=== PATIENT | female | born 1960 | race Caucasian/White ===

== ENCOUNTER → 2020-05-03 13:12 | Outpatient (REF) | payer OTHER, SELFPAY ==
--- NOTE | 2020-05-03 13:30 | CA_ITS ---
Transthoracic Echocardiogram Patient (Last, First, Middle): Sally Barr A Gender: Female Date of : 1960 Age: 60 Procedure Date: 05/03/2020 Procedure Type: Transthoracic Echocardiogram Location: OP Height: 157.48 cm Weight: 80.74 kg BSA: 1.82 m2 Heart Rate: bpm BP: 128 / 82 mmHg Mail Weigher: Referring MD: Harjeet Julio MD Symptoms: I10 HTN, EDEMA Study Quality: Fair ECG Rhythm: Sinus Conclusions: - Normal left ventricular size and systolic function. - Spectral Doppler is indicative of an impaired relaxation filling pattern. E/E prime ratio is between 8 and 15 consistent with indeterminate filling pressures. - Normal right ventricular cavity size and systolic function. - No significant valvular or pericardial pathology. Findings Left Ventricle Normal left ventricular size and systolic function. There is mildly increased left ventricular wall thickness. The visually estimated ejection fraction is between 55-60%. There is no evidence of regional wall motion abnormalities. Abnormal diastolic function is noted. Spectral Doppler is indicative of an impaired relaxation filling pattern. E/E prime ratio is between 8 and 15 consistent with indeterminate filling pressures. Right Ventricle Normal right ventricular cavity size and systolic function. Atria Both atria are normal in size. There is no evidence of interatrial shunt by color Doppler. Aortic Valve Normal aortic valve structure and function. There is no aortic valve stenosis. There is no aortic valve regurgitation. Mitral Valve Normal mitral valve structure and function. There is no mitral valve regurgitation. There is no mitral valve stenosis. Pulmonic Valve The pulmonic valve is likely normal. Tricuspid Valve Normal tricuspid valve structure and function. There is trace tricuspid valve regurgitation. Normal right atrial pressure. There is no evidence of pulmonary hypertension. Great Vessels All visible segments of the aorta are normal in size. The visualized portions of the pulmonary artery and branches are normal. Venous The inferior vena cava is normal in size and collapses greater than 50% with inspiration. Pericardium/Pleural There is no evidence of pericardial effusion. Prior Study Comparison Changes noted compared to prior study dated: 04/14/2019. EF 55-60%, grade 1 diastolic dysfunction present. Measurements 2D Linear Measurements IVSd: 1.10 0.6-0.9/0.6-1.0 cm LVIDd: 4.13 3.9-5.3/4.2-5.9 cm LVIDd Index: 2.27 2.4-3.2/2.2-3.1 cm/m2 LVIDs: 2.85 2.0-3.6 cm LVPWd: 0.81 0.7-1.1 cm Ao Root: 2.40 2.1-3.5 cm LA Diam: 3.30 2.7-3.8/3.0-4.0 cm LAIDs Index: 1.81 1.5-2.3 cm/m2 LV Mass: 156.24 67-162/88-224 g LV Mass Index: 85.85 43-95/49-115 g/m2 LVOT Diam: 1.90 3.0+(-)1.3 cm Mitral Valve MV Pk E: 0.82 MV PK A: 0.90 MV Decel Time: 201.00 E/A: 0.90 E'Lateral: 7.06 E'Medial: 6.58 E/E' Med: 12.50 E/E' Lat: 11.60 PHT: 59.00 MVA PHT: 3.73 Decel [place]: 4.08 Aortic Valve AoV Pk Dagoberto: 1.26 AoV Pk Grad: 6.00 LVOT LVOT Pk Dagoberto: 1.16 LVOT Mn Dagoberto: 0.78 LVOT VTI: 0.23 LVOT Pk Grad: 5.00 LVOT Mn Grad: 3.00 LVOT Diam: 1.90 LVOT Area: 2.84 Diastolic Function MV Pk E: 0.82 MV Pk A: 0.90 E/A: 0.90 E'Medial: 6.58 E/E' Med: 12.50 E' Laterial: 7.06 E/E' Lat: 11.60 Tricuspid Valve TR Pk Dagoberto: 2.25 TR Pk Grad: 20.00 Great Vessels Aorta Ao Root-2D: 2.40 2.0-3.7 cm Ao Asc: 2.90 2.1-3.4 cm Updated in Other Vendor System with Status of Final Jonah Watson MD electronically signed on 05/04/2020 11:38:12 AM with status of Final
== END ==
LOC: HO.CARD 13:12
PROVIDERS: PCP Internal Medicine; Visit Provider Internal Medicine
DX: I10 Essential (primary) hypertension (principal); J45.909 Unspecified asthma, uncomplicated; R60.9 Edema, unspecified
CPT/HCPCS: 93306

== ENCOUNTER 2020-05-21 12:44 | Outpatient (REF) | payer OTHER, SELFPAY ==
[2020-05-21 14:23] LABS: MANUAL DIFF FLAG NO
[2020-05-21 14:30] LABS: Basophils Absolute Auto 0.1 X10*3/uL (0.0-0.2); Basophils Percent Auto 0.9 % (0-2); Eosinophils Absolute Auto 0.2 X10*3/uL (0.0-0.4); Eosinophils Percent Auto 1.7 % (0-4); Hematocrit 39.7 % (37-47); Hemoglobin 13.1 g/dl (12.0-16.0); Imm Gran Abs Auto 0.03 X10*3/uL (0.00-0.03); Imm Gran Pct Auto 0.3 % (0.0-0.4); Lymphocytes Percent Auto 44.6 % (20-40); Mean Corpuscular Hemoglobin 30.2 pg (27.0-33.0); Mean Corpuscular Volume 91.5 fL (80-98); Monocytes Absolute Auto 1.1 X10*3/uL (0.1-1.2); Monocytes Percent Auto 11.9 % (2-11); Neutrophils Absolute Auto 3.6 X10*3/uL (2.0-8.3); Neutrophils Percent Auto 40.6 % (45-73); Platelet Count 516 X10*3/uL (160-400); Red Blood Count 4.34 X10*6/uL (4.20-5.50); Red Cell Distribution Width 13.8 % (11.0-16.0); White Blood Count 8.9 X10*3/uL (4.8-10.8)
[2020-05-21 15:10] LABS: Alanine Aminotransferase 33 U/L (0-31); Albumin Level 4.2 g/dL (3.5-5.0); Alkaline Phosphatase 102 U/L (39-117); Anion Gap 11 (12-20); Aspartate Amino Transferase 24 U/L (5-31); Bilirubin Total < 0.2 mg/dL (0.0-1.0); Blood Urea Nitrogen 13 mg/dL (9-16); Calcium 8.4 mg/dL (8.4-10.2); Carbon Dioxide 29 mmol/L (22-29); Chloride 103 mmol/L (96-108); Estimated Glomerular Filt Rate > 60; Glucose Random 86 mg/dL (60-115); Lipase 15 U/L (8-78); Potassium 4.3 mmol/l (3.3-5.1); Sodium 139 mmol/L (135-145); Total Protein 7.3 g/dL (6.5-8.0)
== END 2020-05-21 12:45 | disposition home or self-care (01) ==
LOC: HO.10HDL 12:44
PROVIDERS: Visit Provider Internal Medicine
DX: R10.9 Unspecified abdominal pain (principal); E11.9 Type 2 diabetes mellitus without complications; J45.909 Unspecified asthma, uncomplicated; K21.9 Gastro-esophageal reflux disease without esophagitis; R60.9 Edema, unspecified; J44.9 Chronic obstructive pulmonary disease, unspecified
CPT/HCPCS: 36415; 80053; 82550; 83690; 85025

== ENCOUNTER → 2020-05-27 11:00 | Outpatient (BNVA) | payer OTHER, SELFPAY | PROVIDERS: PCP Internal Medicine; Visit Provider Internal Medicine Cardiovascular Disease | DX: R07.9 Chest pain, unspecified (principal); R06.00 Dyspnea, unspecified; I10 Essential (primary) hypertension; J45.909 Unspecified asthma, uncomplicated; Z79.899 Other long term (current) drug therapy | CPT/HCPCS: 93005 ==

== ENCOUNTER 2020-06-14 14:46 | Outpatient (REF) | payer OTHER, SELFPAY | END 2020-06-14 14:47 | disposition home or self-care (01) | LOC: HO.LNP 14:46 | PROVIDERS: Visit Provider Internal Medicine | DX: Z20.828 Contact with and (suspected) exposure to other viral communicable diseases (principal) | CPT/HCPCS: U0003 ==

== ENCOUNTER 2020-07-02 09:42 | Outpatient (REF) | payer OTHER, SELFPAY ==
[2020-07-02 10:37] LABS: Hemoglobin 13.5 g/dl (12.0-16.0); Mean Corpuscular HGB Conc 33.8 g/dl (31.0-35.0); Mean Corpuscular Hemoglobin 30.3 pg (27.0-33.0); Mean Corpuscular Volume 89.9 fL (80-98); Mean Platelet Volume 9.7 fL (9.4-12.3); Platelet Count 570 X10*3/uL (160-400); Red Blood Count 4.45 X10*6/uL (4.20-5.50); Red Cell Distribution Width 13.9 % (11.0-16.0); White Blood Count 9.6 X10*3/uL (4.8-10.8)
[2020-07-02 10:45] LABS: Prothrombin Time 12.1 SEC (10.8-13.0)
[2020-07-02 10:53] LABS: Anion Gap 13 (12-20); Blood Urea Nitrogen 9 mg/dL (9-16); Calcium 9.1 mg/dL (8.4-10.2); Carbon Dioxide 26 mmol/L (22-29); Chloride 104 mmol/L (96-108); Estimated Glomerular Filt Rate > 60; Glucose Random 161 mg/dL (60-115); Potassium 4.2 mmol/l (3.3-5.1); Sodium 139 mmol/L (135-145)
== END 2020-07-02 09:43 | disposition home or self-care (01) ==
LOC: HO.LAB 09:42
PROVIDERS: PCP Internal Medicine; Visit Provider Internal Medicine Cardiovascular Disease
DX: I20.0 Unstable angina (principal)
CPT/HCPCS: 36415; 80048; 85027; 85610

== ENCOUNTER → 2020-07-26 10:26 | Outpatient (BNVA) | payer OTHER, SELFPAY | PROVIDERS: PCP Internal Medicine; Visit Provider Internal Medicine Cardiovascular Disease | DX: Z76.89 Persons encountering health services in other specified circumstances (principal) ==

== ENCOUNTER → 2020-08-02 13:23 | Outpatient (REF) | payer OTHER, SELFPAY ==
--- NOTE | 2020-08-02 13:26 | ECG_ITS ---
Hook-up date: 2020-08-02 13:32:00 Duration: 26:02:00 Test Indications: UNSPEC. TACHYCARDIA Medications: [id number] QRS complexes 2 Ventricular ectopics which represent <1 % of total QRS comp. 2 Supraventricular ectopics which represent <1 % of total QRS comp. * Paced QRS complexs which represent % of total QRS comp. VENTRICULAR ECTOPY 2 Isolated 0 Bigeminal Cycles 0 Couplets 0 Runs 0 Beats in Runs * Beats LONGEST at * BPM at :: -- * Beats FASTEST at * BPM at :: -- SUPRAVENTRICULAR ECTOPY 0 Isolated 1 Couplets 0 Runs 0 Beats in Runs * Beats LONGEST at * BPM at :: -- * Beats FASTEST at * BPM at :: -- HEART RATES 65 MIN at 23:35:25 2020-08-02 82 AVG 129 MAX at 13:35:34 2020-08-02 LONGEST RR 0.9280 secs at 01:01:38 2020-08-03 S-T LEVELS Channel 1 - 128 mm at 13:32:00 2020-08-02 - 128 mm at 13:32:00 2020-08-02 Channel 2 - 128 mm at 13:32:00 2020-08-02 - 128 mm at 13:32:00 2020-08-02 Channel 3 - 128 mm at 03:25:11 -- - 128 mm at 03:25:11 Underlying rhythm is sinus; No significant ectopy, tachy or ian arrhythmias; Symptoms in patient diary including lightheadedness, chest pain, shortness of breath correlate with sinus rhythm. Referred By: Jonah Watson Overread By: LISS MCCLURE
== END ==
LOC: HO.CARD 13:23
PROVIDERS: Visit Provider Internal Medicine Cardiovascular Disease
DX: R00.0 Tachycardia, unspecified (principal)
CPT/HCPCS: 93225; 93226

== ENCOUNTER 2020-08-09 16:58 | Outpatient (REF) | payer OTHER, SELFPAY ==
[2020-08-09 17:44] LABS: MANUAL DIFF FLAG NO
[2020-08-09 17:53] LABS: Basophils Absolute Auto 0.1 X10*3/uL (0.0-0.2); Eosinophils Absolute Auto 0.3 X10*3/uL (0.0-0.4); Eosinophils Percent Auto 3.5 % (0-4); Hematocrit 39.5 % (37-47); Imm Gran Abs Auto 0.03 X10*3/uL (0.00-0.03); Imm Gran Pct Auto 0.3 % (0.0-0.4); Lymphocytes Absolute Auto 3.8 X10*3/uL (1.2-4.9); Lymphocytes Percent Auto 39.2 % (20-40); Mean Corpuscular HGB Conc 32.9 g/dl (31.0-35.0); Mean Corpuscular Hemoglobin 30.3 pg (27.0-33.0); Mean Corpuscular Volume 92.1 fL (80-98); Mean Platelet Volume 9.8 fL (9.4-12.3); Monocytes Percent Auto 9.8 % (2-11); Neutrophils Absolute Auto 4.5 X10*3/uL (2.0-8.3); Neutrophils Percent Auto 46.2 % (45-73); Platelet Count 559 X10*3/uL (160-400); Red Blood Count 4.29 X10*6/uL (4.20-5.50); White Blood Count 9.8 X10*3/uL (4.8-10.8)
[2020-08-09 17:55] LABS: Estimated Average Glucose 126 mg/dL; Glucose Urine UA NEG (NEG); Leukocyte Esterase Urine TRACE (NEG); Nitrite Urine NEG (NEG); Specific Gravity - Urine 1.015 (1.005-1.025); UACC Culture Trigger YES; Urine Blood TRACE (NEG); Urine Ketones NEG (NEG); Urine Protein NEG (NEG-TRACE)
[2020-08-09 18:11] LABS: Alanine Aminotransferase 20 U/L (0-31); Albumin Level 4.3 g/dL (3.5-5.0); Alkaline Phosphatase 112 U/L (39-117); Anion Gap 12 (12-20); Aspartate Amino Transferase 17 U/L (5-31); Bilirubin Total 0.3 mg/dL (0.0-1.0); Blood Urea Nitrogen 9 mg/dL (9-16); Calcium 8.5 mg/dL (8.4-10.2); Carbon Dioxide 29 mmol/L (22-29); Chloride 102 mmol/L (96-108); Estimated Glomerular Filt Rate > 60; Glucose Random 94 mg/dL (60-115); Potassium 4.3 mmol/l (3.3-5.1); Sodium 139 mmol/L (135-145); Total Protein 7.3 g/dL (6.5-8.0)
[2020-08-09 18:22] LABS: Appearance Urine CLEAR; Color Urine YELLOW
[2020-08-09 18:28] LABS: RBC Urine 0-2 /HPF (0); WBC Urine 0-2 /HPF (0-4)
== END 2020-08-09 16:59 | disposition home or self-care (01) ==
LOC: HO.LAB 16:58
PROVIDERS: PCP Internal Medicine; Visit Provider Internal Medicine
DX: I10 Essential (primary) hypertension (principal); R73.03 Prediabetes; R60.9 Edema, unspecified; R10.9 Unspecified abdominal pain
CPT/HCPCS: 36415; 80053; 81001; 81003; 83036; 85025; 87086

== ENCOUNTER 2020-08-10 12:44 | Outpatient (REF) | payer OTHER, SELFPAY ==
--- NOTE | 2020-08-10 | US_ITS ---
EXAMINATION: US RETROPERITONEAL COMPLETE (RENAL) CLINICAL INFORMATION: Right flank pain. Rule out obstruction.. COMPARISON: Previous CT of the abdomen and pelvis July 2019 and renal ultrasound February 2018 TECHNIQUE: Real-time imaging of the kidneys and bladder. FINDINGS: RIGHT KIDNEY: 10.6 x 4.4 x 5.5 cm (SAG x AP x TRV). The kidney is normal in size, contour, and echogenicity. Renal cortical thickness is normal. No calculi or focal parenchymal lesions. No hydronephrosis. The small stone in the upper pole of the right kidney seen by CT July 2019 is not appreciated. LEFT KIDNEY: 10.8 x 5.8 x 4.7 cm (SAG x AP x TRV). The kidney is normal in size, contour, and echogenicity. Renal cortical thickness is normal. No calculi or focal parenchymal lesions. No hydronephrosis. BLADDER: Well distended and normal. Bilateral ureteral jets are demonstrated. Prevoid bladder volume is 281 mL. Postvoid bladder volume is 16 mL. US/US retroperitoneal comp IMPRESSION: Normal renal and bladder ultrasound. No stone or hydronephrosis.
== END 2020-08-10 12:45 | disposition home or self-care (01) ==
LOC: HO.HMGCX 12:44
PROVIDERS: Visit Provider Internal Medicine
DX: R10.31 Right lower quadrant pain (principal); R00.0 Tachycardia, unspecified; R07.9 Chest pain, unspecified
CPT/HCPCS: 76770

== ENCOUNTER 2020-08-16 11:05 | Outpatient (REF) | payer OTHER, SELFPAY ==
--- NOTE | 2020-08-16 11:07 | CT_ITS ---
EXAMINATION: CT ABDOMEN AND PELVIS WITHOUT CONTRAST CLINICAL INFORMATION: Right flank pain COMPARISON: Previous CT of the abdomen and pelvis most recent July 2019 and renal and bladder ultrasound July 2020 TECHNIQUE: Multidetector volumetric imaging was performed from the superior aspect of the liver through the pubic symphysis. Sagittal and coronal reformatted images were obtained on the technologist's workstation. This CT examination was performed using dose optimization techniques as appropriate, variously including the following: *Automated exposure control *Adjustment of mA and/or kV according to patient size (this includes techniques or standardized protocols for targeted exams where dose is matched to indication/reason for exam; i.e. extremities or head) *Use of iterative reconstruction technique DLP: 458 mGy-cm FINDINGS: LUNG BASES: The visualized lung bases are unremarkable. LIVER, GALLBLADDER, AND BILIARY TREE: The liver is normal in size, shape, and attenuation. No focal hepatic lesion or biliary ductal dilatation is present. The gallbladder has been removed. PANCREAS: Unremarkable. SPLEEN: The spleen is absent. There may be a 1 cm splenule under the left hemidiaphragm axial image 25 series. This is unchanged. ADRENAL GLANDS: Unremarkable. KIDNEYS AND URETERS: The kidneys are normal in size, shape, and attenuation. No hydronephrosis, hydroureter, or calculi seen. No perinephric stranding. BLADDER: Bladder is empty. GASTROINTESTINAL TRACT: There is mild diverticulosis of the colon. No evidence of diverticulitis is seen. Stool is seen throughout the colon questionable for constipation. The small and large bowel are otherwise unremarkable. The appendix is not identified. No inflammatory changes in the right lower quadrant. The stomach is unremarkable. ABDOMINAL WALL: No significant hernia is appreciated. LYMPH NODES: Normal. VASCULAR: Unremarkable. PELVIC VISCERA: The uterus appears to have been removed. No pelvic mass is seen. OSSEOUS STRUCTURES: There is degenerative disc disease at L5-S1. CT/CT abdomen pelvis wo con IMPRESSION: No stone or hydronephrosis is seen. Mild diverticulosis of the colon. No evidence of diverticulitis. Stool throughout the colon questionable for constipation. .
== END 2020-08-16 11:06 | disposition home or self-care (01) ==
LOC: HO.CT 11:05
PROVIDERS: Visit Provider Internal Medicine
DX: R10.9 Unspecified abdominal pain (principal); Z87.442 Personal history of urinary calculi
CPT/HCPCS: 74176

== ENCOUNTER → 2020-10-25 09:43 | Outpatient (BNVA) | payer OTHER, SELFPAY | PROVIDERS: PCP Internal Medicine; Visit Provider Internal Medicine Cardiovascular Disease ==

== ENCOUNTER 2020-11-24 12:31 | Outpatient (REF) | payer OTHER, SELFPAY ==
[2020-11-24 13:59] LABS: MANUAL DIFF FLAG NO
[2020-11-24 14:02] LABS: Basophils Absolute Auto 0.1 X10*3/uL (0.0-0.2); Basophils Percent Auto 1.3 % (0-2); Eosinophils Absolute Auto 0.1 X10*3/uL (0.0-0.4); Eosinophils Percent Auto 1.6 % (0-4); Hematocrit 39.6 % (37-47); Hemoglobin 13.1 g/dl (12.0-16.0); Imm Gran Abs Auto 0.02 X10*3/uL (0.00-0.03); Imm Gran Pct Auto 0.2 % (0.0-0.4); Lymphocytes Absolute Auto 3.2 X10*3/uL (1.2-4.9); Mean Corpuscular HGB Conc 33.1 g/dl (31.0-35.0); Mean Corpuscular Hemoglobin 30.1 pg (27.0-33.0); Mean Platelet Volume 9.9 fL (9.4-12.3); Monocytes Absolute Auto 0.6 X10*3/uL (0.1-1.2); Monocytes Percent Auto 6.4 % (2-11); Neutrophils Absolute Auto 4.6 X10*3/uL (2.0-8.3); Neutrophils Percent Auto 53.5 % (45-73); Platelet Count 523 X10*3/uL (160-400); Red Blood Count 4.35 X10*6/uL (4.20-5.50); Red Cell Distribution Width 13.7 % (11.0-16.0); White Blood Count 8.6 X10*3/uL (4.8-10.8)
[2020-11-24 14:33] LABS: Alanine Aminotransferase 25 U/L (0-31); Albumin Level 4.2 g/dL (3.5-5.0); Alkaline Phosphatase 112 U/L (39-117); Anion Gap 14 (12-20); Aspartate Amino Transferase 22 U/L (5-31); Bilirubin Total 0.4 mg/dL (0.0-1.0); Blood Urea Nitrogen 10 mg/dL (9-16); C Reactive Protein 1.19 mg/dL (< or = 0.50); Calcium 9.4 mg/dL (8.4-10.2); Carbon Dioxide 29 mmol/L (22-29); Chloride 100 mmol/L (96-108); Estimated Glomerular Filt Rate 59; Glucose Random 180 mg/dL (60-115); Potassium 3.7 mmol/L (3.3-5.1); Sodium 139 mmol/L (135-145); Total Protein 7.2 g/dL (6.5-8.0)
== END 2020-11-24 12:32 | disposition home or self-care (01) ==
LOC: HO.HMGCLDS 12:31
PROVIDERS: PCP Internal Medicine; Visit Provider Internal Medicine
DX: I10 Essential (primary) hypertension (principal); R10.32 Left lower quadrant pain
CPT/HCPCS: 36415; 80053; 82550; 85025; 86140

== ENCOUNTER 2021-07-21 12:32 | Outpatient (REF) | payer OTHER, SELFPAY ==
[2021-07-21 14:00] LABS: MANUAL DIFF FLAG NO
[2021-07-21 14:12] LABS: Basophils Absolute Auto 0.1 X10*3/uL (0.0-0.2); Basophils Percent Auto 0.8 % (0-2); Eosinophils Absolute Auto 0.1 X10*3/uL (0.0-0.4); Eosinophils Percent Auto 1.1 % (0-4); Hematocrit 38.6 % (37.0-47.0); Hemoglobin 12.8 g/dl (12.0-16.0); Imm Gran Abs Auto 0.01 X10*3/uL (0.00-0.03); Imm Gran Pct Auto 0.1 % (0.0-0.4); Lymphocytes Absolute Auto 3.5 X10*3/uL (1.2-4.9); Lymphocytes Percent Auto 31.6 % (20-40); Mean Corpuscular HGB Conc 33.2 g/dl (31.0-35.0); Mean Corpuscular Hemoglobin 30.3 pg (27.0-33.0); Mean Corpuscular Volume 91.5 fL (80.0-98.0); Mean Platelet Volume 9.6 fL (9.4-12.3); Monocytes Percent Auto 9.2 % (2-11); Neutrophils Absolute Auto 6.4 x10*3/uL (2.0-8.3); Neutrophils Percent Auto 57.2 % (45-73); Platelet Count 536 X10*3/uL (160-400); Red Blood Count 4.22 X10*6/uL (4.20-5.50); Red Cell Distribution Width 14.6 % (11.0-16.0); White Blood Count 11.1 X10*3/uL (4.8-10.8)
[2021-07-21 14:29] LABS: Troponin-I High Sensitivity < 3.5 ng/L (<3.5-17.0)
[2021-07-21 14:42] LABS: Alanine Aminotransferase 21 U/L (0-31); Albumin Level 4.2 g/dL (3.5-5.0); Alkaline Phosphatase 108 U/L (39-117); Anion Gap 10 (12-20); Aspartate Amino Transferase 15 U/L (5-31); Bilirubin Total 0.3 mg/dL (0.0-1.0); Blood Urea Nitrogen 10 mg/dL (9-16); C Reactive Protein 1.48 mg/dL (< or = 0.50); Calcium 9.4 mg/dL (8.4-10.2); Carbon Dioxide 29 mmol/L (22-29); Chloride 106 mmol/L (96-108); Estimated Glomerular Filt Rate > 60; Glucose Random 97 mg/dL (60-115); Potassium 4.2 mmol/L (3.3-5.1); Sodium 141 mmol/L (135-145); Total Protein 7.2 g/dL (6.5-8.0)
== END 2021-07-21 12:33 | disposition home or self-care (01) ==
LOC: HO.10HDL 12:32
PROVIDERS: Visit Provider Internal Medicine
DX: R00.0 Tachycardia, unspecified (principal); R07.89 Other chest pain
CPT/HCPCS: 36415; 80053; 82550; 84484; 85025; 86140

== ENCOUNTER → 2021-07-26 10:11 | Outpatient (REF) | payer OTHER, SELFPAY ==
--- NOTE | 2021-07-26 10:30 | CA_ITS ---
Transthoracic Echocardiogram Patient (Last, First, Middle): Sally Barr A Gender: Female Date of : 1960 Age: 61 Procedure Date: 07/26/2021 Procedure Type: Transthoracic Echocardiogram Location: OP Height: 157.48 cm Weight: 83.92 kg BSA: 1.85 m2 Heart Rate: bpm BP: 137 / 84 mmHg [facility] Former: [facility] Referring MD: Harjeet Julio MD Symptoms: R00.0 TACHYCARDIA CHEST TIGHTNESS Study Quality: Fair ECG Rhythm: Sinus Conclusions: - The left ventricular systolic function is normal. The calculated ejection fraction is 57% by biplane method. - No obvious valvular pathology seen on this study. Findings Left Ventricle Normal left ventricular cavity size. There is normal left ventricular wall thickness. The left ventricular systolic function is normal. The calculated ejection fraction is 57% by biplane method. There is no evidence of regional wall motion abnormalities. Diastolic function is normal for age. Right Ventricle Normal right ventricular cavity size and systolic function. Atria Both atria are normal in size. Aortic Valve There is a normal trileaflet aortic valve. There is no aortic valve stenosis. There is no aortic valve regurgitation. Mitral Valve The mitral valve appears normal. There is no mitral valve regurgitation. There is no mitral valve stenosis. Pulmonic Valve The pulmonic valve was not well visualized. Tricuspid Valve There is trace tricuspid valve regurgitation. The pulmonary artery systolic pressure is normal. Great Vessels The aortic annulus, sinuses of valsalva, asc aorta, and aortic arch are normal in size. Venous The inferior vena cava is normal in size and collapses greater than 50% with inspiration. Pericardium/Pleural There is no evidence of pericardial effusion. Prior Study Comparison No significant change compared to prior study dated: 05/03/2020. Recommendations, Care & Conclusions No obvious valvular pathology seen on this study. Measurements 2D Linear Measurements IVSd: 1.07 0.6-0.9/0.6-1.0 cm LVIDd: 4.14 3.9-5.3/4.2-5.9 cm LVIDd Index: 2.24 2.4-3.2/2.2-3.1 cm/m2 LVIDs: 3.21 2.0-3.6 cm LVPWd: 0.88 0.7-1.1 cm Ao Root: 2.90 2.1-3.5 cm LA Diam: 3.40 2.7-3.8/3.0-4.0 cm LAIDs Index: 1.84 1.5-2.3 cm/m2 LV Mass: 160.99 67-162/88-224 g LV Mass Index: 87.02 43-95/49-115 g/m2 LVOT Diam: 1.90 3.0+(-)1.3 cm 2D Systolic Function EF 4C: 58.90 >55% EF 2C: 56.70 >55% EF BiP: 57.00 >55% Mitral Valve MV Pk E: 0.75 MV PK A: 1.09 MV Decel Time: 156.00 E/A: 0.70 E'Lateral: 10.80 E'Medial: 7.40 E/E' Med: 10.20 E/E' Lat: 7.00 PHT: 46.00 MVA PHT: 4.78 Decel [place]: 4.84 Aortic Valve AoV Pk Dagoberto: 1.52 AoV Mn Dagoberto: 1.05 AoV VTI: 0.29 AoV Pk Grad: 9.00 Aov Mn Grad: 5.00 [place] Cont.VTI: 2.44 LVOT LVOT Pk Dagoberto: 1.26 LVOT Mn Dagoberto: 0.94 LVOT VTI: 0.25 LVOT Pk Grad: 6.00 LVOT Mn Grad: 4.00 LVOT Diam: 1.90 LVOT Area: 2.84 Diastolic Function MV Pk E: 0.75 MV Pk A: 1.09 E/A: 0.70 E'Medial: 7.40 E/E' Med: 10.20 E' Laterial: 10.80 E/E' Lat: 7.00 Right Ventricle TAPSE (mm): 22.40 TVS' Dagoberto: 12.60 Tricuspid Valve TR Pk Dagoberto: 1.21 TR Pk Grad: 6.00 RA Press: 3.00 RVSP: 9.00 Great Vessels Aorta Ao Root-2D: 2.90 2.0-3.7 cm Ao Asc: 3.00 2.1-3.4 cm Ao Arch: 2.70 Updated in Other Vendor System with Status of Final Aubrey Cooper MD electronically signed on 07/28/2021 1:03:54 PM with status of Final
== END ==
LOC: HO.CARD 10:11
PROVIDERS: PCP Internal Medicine; Visit Provider Internal Medicine
DX: R00.0 Tachycardia, unspecified (principal); R07.89 Other chest pain
CPT/HCPCS: 93306

== ENCOUNTER 2021-08-11 14:57 | Outpatient (REF) | payer OTHER, SELFPAY ==
[2021-08-11 15:34] LABS: MANUAL DIFF FLAG NO
[2021-08-11 16:02] LABS: Basophils Absolute Auto 0.1 X10*3/uL (0.0-0.2); Eosinophils Absolute Auto 0.2 X10*3/uL (0.0-0.4); Eosinophils Percent Auto 1.5 % (0-4); Hematocrit 40.6 % (37.0-47.0); Hemoglobin 13.7 g/dl (12.0-16.0); Imm Gran Abs Auto 0.03 X10*3/uL (0.00-0.03); Imm Gran Pct Auto 0.3 % (0.0-0.4); Lymphocytes Absolute Auto 3.8 X10*3/uL (1.2-4.9); Lymphocytes Percent Auto 34.4 % (20-40); Mean Corpuscular HGB Conc 33.7 g/dl (31.0-35.0); Mean Corpuscular Hemoglobin 30.7 pg (27.0-33.0); Mean Platelet Volume 9.5 fL (9.4-12.3); Monocytes Absolute Auto 1.1 X10*3/uL (0.1-1.2); Monocytes Percent Auto 9.6 % (2-11); Neutrophils Absolute Auto 5.8 x10*3/uL (2.0-8.3); Neutrophils Percent Auto 53.2 % (45-73); Platelet Count 493 X10*3/uL (160-400); Red Blood Count 4.46 X10*6/uL (4.20-5.50); Red Cell Distribution Width 14.2 % (11.0-16.0)
== END 2021-08-11 14:58 | disposition home or self-care (01) ==
LOC: HO.LAB 14:57
PROVIDERS: PCP Internal Medicine; Visit Provider Internal Medicine Pulmonary Disease
DX: R60.9 Edema, unspecified (principal); J45.909 Unspecified asthma, uncomplicated; Z91.09 Other allergy status, other than to drugs and biological substances
CPT/HCPCS: 36415; 82785; 85025; 86003

== ENCOUNTER 2021-08-18 13:31 | Outpatient (REF) | payer OTHER, SELFPAY ==
--- NOTE | ~2021-08-18 | XR_ITS ---
EXAMINATION: XR CHEST CLINICAL INFORMATION: Shortness of breath with asthma. COMPARISON: 11/08/2017 TECHNIQUE: 2 views of the chest were obtained. FINDINGS: No convincing evidence for an acute process. Some chronic markings are noted. No obvious failure or infiltrate. There is no effusion. The cardiac silhouette is within normal limits. The hilar regions do not appear pathologically enlarged. There is no effusion. XR/XR chest 2V IMPRESSION: No acute finding.
== END 2021-08-18 13:32 | disposition home or self-care (01) ==
LOC: HO.XRAY 13:31
PROVIDERS: PCP Internal Medicine; Visit Provider Internal Medicine
DX: J45.909 Unspecified asthma, uncomplicated (principal); R06.02 Shortness of breath
CPT/HCPCS: 71046

== ENCOUNTER 2021-08-18 14:08 | Outpatient (REF) | payer OTHER, SELFPAY ==
[2021-08-18 15:01] LABS: Influenza A PCR NEGATIVE (Negative); Influenza B PCR NEGATIVE (Negative); Resp Syncy Virus RNA Qual PCR NEGATIVE (Negative); SARS COV2 PCR INHOUSE NEGATIVE (Negative)
== END 2021-08-18 14:09 | disposition home or self-care (01) ==
LOC: HO.LNP 14:08
PROVIDERS: Visit Provider Internal Medicine
DX: Z20.822 Contact with and (suspected) exposure to COVID-19 (principal); R05.9 Cough, unspecified
CPT/HCPCS: 0241U

== ENCOUNTER 2021-08-22 15:10 | Outpatient (REF) | payer OTHER, SELFPAY ==
--- NOTE | ~2021-08-22 | US_ITS ---
EXAMINATION: US VENOUS ULTRASOUND WITH DOPPLER LOWER EXTREMITY, BILATERAL CLINICAL INFORMATION: Edema. COMPARISON: None TECHNIQUE: Ultrasound of the deep veins is performed from the hip to the calf with compression sonography and color and pulse Doppler assessment. Spectral analysis with color-flow imaging is performed. FINDINGS: RIGHT: There is normal venous compression and respiratory variation and augmented flow. The visualized common femoral vein, superficial femoral vein, profunda femoral vein, popliteal vein, and the trifurcation region shows no evidence of deep venous thrombosis. There is no significant popliteal fossa cyst. LEFT: There is normal venous compression and respiratory variation and augmented flow. The visualized common femoral vein, superficial femoral vein, profunda femoral vein, popliteal vein, and the trifurcation region shows no evidence of deep venous thrombosis. There is no significant popliteal fossa cyst. If the patient's symptoms persist, followup ultrasound in 5 days 7 days might be of value to exclude proximal propagation from a non-visualized calf vein. US/US venous duplex LE BI IMPRESSION: No DVT demonstrated in the bilateral lower extremity.
== END 2021-08-22 15:11 | disposition home or self-care (01) ==
LOC: HO.US 15:10
PROVIDERS: PCP Internal Medicine; Visit Provider Internal Medicine Pulmonary Disease
DX: R60.9 Edema, unspecified (principal)
CPT/HCPCS: 93970

== ENCOUNTER 2021-08-30 14:50 | Outpatient (REF) | payer OTHER, SELFPAY ==
--- NOTE | 2021-08-30 17:33 | PFT_ITS ---
Forced vital capacity 88%. FEV1 94%, FEV1/FVC ratio is 82, RHG28-68 99% and MVV is 107%. All these flow volumes are normal. After bronchodilator therapy, there is significant improvement in [id number]. Total lung capacity 93%. Residual volume 94%, normal. Diffusion capacity 84%, normal. CONCLUSION: Normal pulmonary function test and no evidence of obstructive or restrictive pulmonary disorder. Significant response to bronchodilator with improvement of [id number] indicates that the patient may have a mild bronchospastic component. For this, clinical correlation is recommended. June Simon MD MSB/MODL / [id number]
== END 2021-08-30 14:51 | disposition home or self-care (01) ==
LOC: HO.RESP 14:50
PROVIDERS: PCP Internal Medicine; Visit Provider Internal Medicine Pulmonary Disease
DX: R06.00 Dyspnea, unspecified (principal); J45.909 Unspecified asthma, uncomplicated
CPT/HCPCS: 94060; 94727; 94729

== ENCOUNTER → 2021-09-01 14:58 | Outpatient (BNVA) | payer OTHER, SELFPAY | PROVIDERS: PCP Internal Medicine; Visit Provider Internal Medicine Pulmonary Disease | DX: Z91.09 Other allergy status, other than to drugs and biological substances (principal); J45.909 Unspecified asthma, uncomplicated; R60.9 Edema, unspecified ==

== ENCOUNTER 2021-09-13 08:11 | Outpatient (REF) | payer OTHER, SELFPAY ==
--- NOTE | ~2021-09-13 | CT_ITS ---
EXAMINATION: CT CHEST WITHOUT CONTRAST CLINICAL INFORMATION: Interstitial pulmonary disease COMPARISON: Previous chest x-ray most recent August [address] of the abdomen and pelvis most recent August 2020 TECHNIQUE: Multidetector volumetric CT imaging of the chest was done. Axial MIP volume rendering provided. Sagittal and coronal reformatted images were obtained. This CT examination was performed using dose optimization techniques as appropriate, variously including the following: *Automated exposure control *Adjustment of mA and/or kV according to patient size (this includes techniques or standardized protocols for targeted exams where dose is matched to indication/reason for exam; i.e. 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 No evidence of interstitial lung disease, emphysema or bronchiectasis is seen. MEDIASTINUM: The mediastinum is normal. PLEURA: There is no pleural effusion. No pleural mass or thickening. AXILLA: There are small bilateral axillary lymph nodes. No enlarged axillary lymph nodes or chest wall mass is seen. UPPER ABDOMEN: The gallbladder has been removed. The spleen is not seen. There may be a 1 x 1.5 cm splenule under the left hemidiaphragm axial image 56 series 7. This is similar to previous abdominal and pelvic CT scans. OSSEOUS STRUCTURES: There are mild degenerative changes of the spine. There is mild curvature of the midthoracic spine to the right. CT/CT chest wo con IMPRESSION: No evidence of interstitial lung disease. Fleischner guidelines were followed.
== END 2021-09-13 08:12 | disposition home or self-care (01) ==
LOC: HO.CT 08:11
PROVIDERS: PCP Internal Medicine; Visit Provider Internal Medicine Pulmonary Disease
DX: J84.9 Interstitial pulmonary disease, unspecified (principal); Z91.09 Other allergy status, other than to drugs and biological substances
CPT/HCPCS: 71250

== ENCOUNTER 2021-10-03 09:54 | Outpatient (REF) | payer OTHER, SELFPAY | END 2021-10-03 09:55 | disposition home or self-care (01) | LOC: HO.MDS 09:54 | PROVIDERS: Visit Provider Internal Medicine Pulmonary Disease | DX: J45.50 Severe persistent asthma, uncomplicated (principal) | CPT/HCPCS: 96372; J2357 ==

== ENCOUNTER 2021-11-01 09:51 | Outpatient (REF) | payer OTHER, SELFPAY | END 2021-11-01 09:52 | disposition home or self-care (01) | LOC: HO.MDS 09:51 | PROVIDERS: Visit Provider Internal Medicine Pulmonary Disease | DX: J45.50 Severe persistent asthma, uncomplicated (principal) | CPT/HCPCS: 96372; J2357 ==

== ENCOUNTER 2021-11-28 08:17 | Outpatient (REF) | payer OTHER, SELFPAY ==
[2021-11-28 10:20] LABS: MANUAL DIFF FLAG NO
[2021-11-28 10:24] LABS: Basophils Absolute Auto 0.1 X10*3/uL (0.0-0.2); Basophils Percent Auto 1.1 % (0-2); Eosinophils Absolute Auto 0.3 X10*3/uL (0.0-0.4); Eosinophils Percent Auto 2.5 % (0-4); Hematocrit 39.3 % (37.0-47.0); Hemoglobin 13.1 g/dl (12.0-16.0); Imm Gran Abs Auto 0.04 X10*3/uL (0.00-0.03); Imm Gran Pct Auto 0.4 % (0.0-0.4); Lymphocytes Absolute Auto 3.3 X10*3/uL (1.2-4.9); Lymphocytes Percent Auto 30.9 % (20-40); Mean Corpuscular HGB Conc 33.3 g/dl (31.0-35.0); Mean Corpuscular Hemoglobin 30.3 pg (27.0-33.0); Mean Platelet Volume 10.1 fL (9.4-12.3); Monocytes Absolute Auto 0.9 X10*3/uL (0.1-1.2); Monocytes Percent Auto 8.3 % (2-11); Neutrophils Percent Auto 56.8 % (45-73); Platelet Count 551 X10*3/uL (160-400); Red Blood Count 4.32 X10*6/uL (4.20-5.50); White Blood Count 10.5 X10*3/uL (4.8-10.8)
[2021-11-28 10:31] LABS: D Dimer High Sensitivity 163 NG/ML
[2021-11-28 10:42] LABS: Alanine Aminotransferase 26 U/L (0-31); Alkaline Phosphatase 112 U/L (39-117); Anion Gap 13 (12-20); Aspartate Amino Transferase 16 U/L (5-31); Bilirubin Total 0.5 mg/dL (0.0-1.0); Blood Urea Nitrogen 9 mg/dL (9-16); C Reactive Protein 1.18 mg/dL (< or = 0.50); Calcium 9.2 mg/dL (8.4-10.2); Carbon Dioxide 26 mmol/L (22-29); Chloride 103 mmol/L (96-108); Estimated Glomerular Filt Rate > 60; Glucose Random 112 mg/dL (60-115); Potassium 4.1 mmol/L (3.3-5.1); Sodium 138 mmol/L (135-145); Total Protein 7.1 g/dL (6.5-8.0)
[2021-11-28 11:05] LABS: Free T4 (Free Thyroxine) 0.88 ng/dL (0.71-1.85); Thyroid Stimulating Hormone 1.48 uIU/mL (0.32-4.0)
== END 2021-11-28 08:18 | disposition home or self-care (01) ==
LOC: HO.10HDL 08:17
PROVIDERS: Visit Provider Internal Medicine
DX: R07.9 Chest pain, unspecified (principal); R05.9 Cough, unspecified; J45.909 Unspecified asthma, uncomplicated; R60.0 Localized edema
CPT/HCPCS: 36415; 80053; 82550; 84439; 84443; 85025; 85379; 86140

== ENCOUNTER 2021-11-28 08:29 | Outpatient (REF) | payer OTHER, SELFPAY | END 2021-11-28 08:30 | disposition home or self-care (01) | LOC: HO.MDS 08:29 | PROVIDERS: Visit Provider Internal Medicine Pulmonary Disease | DX: J45.50 Severe persistent asthma, uncomplicated (principal) | CPT/HCPCS: 96372; J2357 ==

== ENCOUNTER 2021-12-26 08:28 | Outpatient (REF) | payer OTHER, SELFPAY | END 2021-12-26 08:29 | disposition home or self-care (01) | LOC: HO.MDS 08:28 | PROVIDERS: Visit Provider Internal Medicine Pulmonary Disease | DX: J45.50 Severe persistent asthma, uncomplicated (principal) | CPT/HCPCS: 96372; J2357 ==

== ENCOUNTER 2022-01-11 07:59 | Outpatient (REF) | payer OTHER, SELFPAY ==
--- NOTE | ~2022-01-11 | MM_ITS ---
EXAMINATION: MM SCREENING DIGITAL BREAST TOMOSYNTHESIS, BILATERAL CLINICAL INFORMATION: Screening. Asymptomatic. The lifetime risk of breast cancer based on the Tyrer-Cuzick Model is 9%. COMPARISON: Mammography: 08/29/2019, 06/10/2018, 03/15/2016, 03/06/2014 TECHNIQUE: Digital breast tomosynthesis is performed in both the craniocaudal and mediolateral oblique views along with computer-aided detection (CAD). Synthesized 2D images are generated from the tomosynthesis. FINDINGS: There are scattered areas of fibroglandular density (ACR BI-RADS breast composition Category b). There are no significant masses, abnormal calcifications, or other abnormalities. Parenchymal pattern is similar to prior studies. There there is scattered chronic small smooth nodularity again seen on the right, likely intramammary nodes. No developing density. The axillary nodes is similar to prior studies. Skin contours are smooth. MM/MM tomosynthesis screening BI IMPRESSION: No significant changes from prior exams. ASSESSMENT: BI-RADS 2: Benign RECOMMENDATION: Routine annual mammography screening. This patient's information was entered into a reminder system with a target due date for their next mammogram.
--- NOTE | ~2022-01-11 | MM_ITS ---
EXAMINATION: BONE DENSITOMETRY CLINICAL INDICATION: Menopausal. COMPARISON: Previous BD dated 03/14/2013 and baseline BD dated 06/08/2010. TECHNIQUE: Using a [employer] DXA System (software version: 13.1) manufactured by [employer], dual-energy x-ray absorptiometry was performed of the lumbar spine and left hip. The images are of good technical quality. Summary results are attached. FINDINGS: AP SPINE L1-L3 (excluding L4): The data of L1-L4 has been changed to exclude the L4 vertebral body, because generative change at this level may cause overestimation of lumbar spine density. Current: BMD 0.931 g/cm2, Z-score -1.0, T-score -2.0, osteopenia, 13.1% decrease from previous, 14.7% decrease from baseline (<5% change is not significant). Prior: BMD 1.071 g/cm2. Baseline: BMD 1.092 g/cm2. LEFT FEMUR, NECK: Current: BMD 0.856 g/cm2, Z-score -0.2, T-score -1.3, osteopenia. Prior: BMD 0.906 g/cm2. Baseline: BMD 0.919 g/cm2. LEFT FEMUR, TOTAL: Current: BMD 0.974 g/cm2, Z-score 0.5, T-score -0.3, normal, 2.3% increase from previous, 1.5% decrease from baseline (<5% change is not significant). Prior: BMD 0.952 g/cm2. Baseline: BMD 0.989 g/cm2. IDENTIFIED RISK FACTORS: Early menopause, secondary osteoporosis, hysterectomy, bilateral oophorectomy. HISTORY OF FRACTURE: None listed. MEDICATIONS: Vitamin D. MM/XR DEXA axial skeleton IMPRESSION: 1. DIAGNOSIS: Osteopenia based on the lowest T-score value of -2.0 in the lumbar spine applying World Health Organization criteria. 2. 10-YEAR FRACTURE RISK PREDICTION, FRAX: Major osteoporotic fracture (clinical spine, forearm, hip or shoulder) 7.5%. Hip fracture 0.6%. 3. Treatment Recommendations: NOF guidelines recommend consideration for treatment in postmenopausal women and men age 50 and older presenting with the following: -A hip or vertebral (clinical or morphometric) fracture. -T-score less than or equal to -2.5 at the femoral neck or spine after appropriate evaluation to exclude secondary causes. -Low bone mass at the hip or spine and a 10-year fracture probability by FRAX of greater than or equal to 3% for hip fracture or greater than or equal to 20% for major osteoporotic fracture based on the [place] adapted WHO algorithm. 4. Other Recommendations: All treatment decisions require clinical judgment and consideration of individual patient factors, including patient preferences, comorbidities, previous drug use, risk factors not captured in the FRAX model (e.g. frailty, falls, vitamin D deficiency, increased bone turnover, interval significant decline in bone density) and possible under or overestimation of fracture risk by FRAX. Additional medical evaluation for secondary cause of low bone mineral density may be appropriate. FUTURE SCAN RECOMMENDATION: People with diagnosed cases of osteoporosis or at high risk for fracture should have regular bone mineral density tests. For patients eligible for Medicare, routine testing is allowed once every 2 years. The testing frequency can be increased to one year for patients who have rapidly progressing disease, those who are receiving or discontinuing medical therapy to restore bone mass, or have additional risk factors.
== END 2022-01-11 08:00 | disposition home or self-care (01) ==
LOC: HO.MAMMO 07:59
PROVIDERS: Visit Provider Internal Medicine
DX: Z12.31 Encounter for screening mammogram for malignant neoplasm of breast (principal); Z13.820 Encounter for screening for osteoporosis; Z78.0 Asymptomatic menopausal state
CPT/HCPCS: 77063; 77067; 77080

== ENCOUNTER 2022-01-23 08:22 | Outpatient (REF) | payer OTHER, SELFPAY | END 2022-01-23 08:23 | disposition home or self-care (01) | LOC: HO.MDS 08:22 | PROVIDERS: PCP Internal Medicine; Visit Provider Internal Medicine Pulmonary Disease | DX: J45.50 Severe persistent asthma, uncomplicated (principal) | CPT/HCPCS: 96372; J2357 ==

== ENCOUNTER 2022-02-27 08:28 | Outpatient (REF) | payer OTHER, SELFPAY | END 2022-02-27 08:29 | disposition home or self-care (01) | LOC: HO.MDS 08:28 | PROVIDERS: Visit Provider Internal Medicine Pulmonary Disease | DX: J45.50 Severe persistent asthma, uncomplicated (principal) | CPT/HCPCS: 96372; J2357 ==

== ENCOUNTER 2022-03-13 09:57 | Outpatient (REF) | payer OTHER, SELFPAY ==
[2022-03-13 12:00] LABS: Alanine Aminotransferase 21 U/L (0-31); Alkaline Phosphatase 111 U/L (39-117); Anion Gap 15 (12-20); Aspartate Amino Transferase 13 U/L (5-31); Bilirubin Total 0.5 mg/dL (0.0-1.0); Blood Urea Nitrogen 13 mg/dL (9-16); Calcium 8.8 mg/dL (8.4-10.2); Carbon Dioxide 29 mmol/L (22-29); Chloride 101 mmol/L (96-108); Estimated Glomerular Filt Rate > 60; Glucose Random 102 mg/dL (60-115); Potassium 3.9 mmol/L (3.3-5.1); Sodium 141 mmol/L (135-145)
[2022-03-13 12:18] LABS: Estimated Average Glucose 128 mg/dL; Hemoglobin A1c % 6.1 %
== END 2022-03-13 09:58 | disposition home or self-care (01) ==
LOC: HO.HMGCLDS 09:57
PROVIDERS: PCP Internal Medicine; Visit Provider Internal Medicine
DX: I10 Essential (primary) hypertension (principal); J45.909 Unspecified asthma, uncomplicated
CPT/HCPCS: 36415; 80053; 83036

== ENCOUNTER 2022-03-15 12:37 | Outpatient (REF) | payer OTHER, SELFPAY ==
[2022-03-15 13:48] LABS: D Dimer High Sensitivity 239 NG/ML
[2022-03-15 14:09] LABS: B Type Natriuretic Peptide 12 pg/mL (<100)
== END 2022-03-15 12:38 | disposition home or self-care (01) ==
LOC: HO.LAB 12:37
PROVIDERS: PCP Internal Medicine; Visit Provider Internal Medicine Cardiovascular Disease
DX: R06.00 Dyspnea, unspecified (principal)
CPT/HCPCS: 36415; 83880; 85379

== ENCOUNTER 2022-03-16 14:15 | Outpatient (REF) | payer OTHER, SELFPAY ==
--- NOTE | ~2022-03-16 | CT_ITS ---
EXAMINATION: CT ANGIOGRAM OF THE CHEST WITH AND WITHOUT CONTRAST (CT PULMONARY ANGIOGRAM FOR PE) CLINICAL INFORMATION: Dyspnea. COMPARISON: CT chest 09/16/2021 TECHNIQUE: Prior to contrast administration, noncontrast localization images were obtained. Subsequently, multidetector volumetric imaging was performed from the thoracic inlet to below the diaphragms following the administration of 65 mL Omnipaque 350 intravenous contrast. No contrast reaction reported Sagittal, coronal, and MIP oblique sagittal reformatted images were obtained on the CT workstation, uploaded to PACS, and reviewed. This CT examination was performed using dose optimization techniques as appropriate, variously including the following: *Automated exposure control *Adjustment of mA and/or kV according to patient size (this includes techniques or standardized protocols for targeted exams where dose is matched to indication/reason for exam; i.e. extremities or head) *Use of iterative reconstruction technique Total exam dose-length product 64 mGy-cm FINDINGS: QUALITY OF STUDY/CONTRAST BOLUS: Satisfactory. PULMONARY ARTERIES: There are small pulmonary emboli within the subsegmental pulmonary artery branches of the right lower lobe. Sagittal image 122/173 series 8. THORACIC AORTA: No aneurysm or dissection. LUNG: No focal consolidation, nodules or masses. PLEURA: No pleural effusion or pneumothorax. MEDIASTINUM: Normal heart size. No pericardial effusion. No hilar or mediastinal lymphadenopathy. No evidence of septal bowing or right heart strain. CHEST WALL/AXILLA: No axillary or internal mammary lymphadenopathy. OSSEOUS STRUCTURES: No acute or suspicious osseous abnormality. UPPER ABDOMEN: Status post cholecystectomy. No abnormality visualized portions of liver, kidneys, adrenal glands and pancreas. Spleen is absent. There is a small splenule left upper quadrant. No reflux of contrast into the hepatic veins to suggest elevated right heart pressures. CT/CT angio chest PE protocol IMPRESSION: Small volume of pulmonary emboli in the right lower lobe. VTE: positive. This critical result was discussed with Jonah Rust on 03/16/2022, 4:12 PM and it was ascertained that the content and urgency of the report was understood at the time of direct communication.
[2022-03-16] MEDS: iohexoL 350 MG/ML 100 ML INFUS..BTL IV (15:37)
== END 2022-03-16 14:16 | disposition home or self-care (01) ==
LOC: HO.CT 14:15
PROVIDERS: PCP Internal Medicine; Visit Provider Internal Medicine Cardiovascular Disease
DX: R06.00 Dyspnea, unspecified (principal); R07.9 Chest pain, unspecified
CPT/HCPCS: 71275; Q9967

== ENCOUNTER → 2022-03-29 09:21 | Outpatient (REF) | payer OTHER, SELFPAY ==
--- NOTE | 2022-03-29 09:24 | CA_ITS ---
Transthoracic Echocardiogram Patient (Last, First, Middle): Sally Barr A Gender: Female Date of : 1960 Age: 62 Procedure Date: 03/29/2022 Procedure Type: Transthoracic Echocardiogram Location: OP Height: 154.94 cm Weight: 84.82 kg BSA: 1.84 m2 Heart Rate: 92 bpm BP: 130 / 85 mmHg Communications Electrician Supervisor: MILANA Nicholson MD: Jonah Watson MD Reptile Farmer: Jonah Watson MD Symptoms: I26.99 - Other pulmonary embolism without acute cor pulmonale Study Quality: Adequate ECG Rhythm: Sinus Conclusions: - Normal left ventricular size, thickness, systolic function, and wall motion. The visually estimated ejection fraction is between 55-60%. Diastolic function is normal for age. - Normal right ventricular cavity size and systolic function. Findings Left Ventricle Normal left ventricular size, thickness, systolic function, and wall motion. The visually estimated ejection fraction is between 55-60%. Diastolic function is normal for age. Right Ventricle Normal right ventricular cavity size and systolic function. Atria The left atrium is normal in size. Aortic Valve Normal aortic valve structure and function. There is no aortic valve stenosis. There is no aortic valve regurgitation. Mitral Valve Normal mitral valve structure and function. There is no mitral valve regurgitation. There is no mitral valve stenosis. Pulmonic Valve The pulmonic valve is likely normal. Tricuspid Valve Normal tricuspid valve structure and function. There is trace tricuspid valve regurgitation. Tricuspid regurgitation envelope is inadequate for calculation of right ventricular systolic pressure. Normal right atrial pressure. Great Vessels All visible segments of the aorta are normal in size. The visualized portions of the pulmonary artery and branches are normal. Venous The inferior vena cava is normal in size and collapses greater than 50% with inspiration. Pericardium/Pleural Prominent epicardial adipose tissue noted. There is no evidence of pericardial effusion. Prior Study Comparison No significant change compared to prior study dated: 07/26/2021. Measurements 2D Linear Measurements IVSd: 0.88 0.6-0.9/0.6-1.0 cm LVIDd: 4.50 3.9-5.3/4.2-5.9 cm LVIDd Index: 2.45 2.4-3.2/2.2-3.1 cm/m2 LVIDs: 2.96 2.0-3.6 cm LVPWd: 0.71 0.7-1.1 cm LA Diam: 3.30 2.7-3.8/3.0-4.0 cm LAIDs Index: 1.79 1.5-2.3 cm/m2 LV Mass: 140.48 67-162/88-224 g LV Mass Index: 76.35 43-95/49-115 g/m2 LVOT Diam: 1.80 3.0+(-)1.3 cm 2D Systolic Function EF 4C: 60.10 >55% EF 2C: 57.50 >55% EF BiP: 57.80 >55% Mitral Valve MV Pk E: 0.93 MV PK A: 1.04 MV Decel Time: 224.00 E/A: 0.90 E'Lateral: 10.00 E'Medial: 7.83 E/E' Med: 11.80 E/E' Lat: 9.30 PHT: 66.00 MVA PHT: 3.33 Decel [place]: 4.12 Aortic Valve AoV Pk Dagoberto: 1.36 AoV Mn Dagoberto: 1.01 AoV VTI: 0.28 AoV Pk Grad: 7.00 Aov Mn Grad: 5.00 [place] Cont.VTI: 2.30 LVOT LVOT Pk Dagoberto: 1.32 LVOT Mn Dagoberto: 0.87 LVOT VTI: 0.25 LVOT Pk Grad: 7.00 LVOT Mn Grad: 4.00 LVOT Diam: 1.80 LVOT Area: 2.54 Diastolic Function MV Pk E: 0.93 MV Pk A: 1.04 E/A: 0.90 E'Medial: 7.83 E/E' Med: 11.80 E' Laterial: 10.00 E/E' Lat: 9.30 Right Ventricle TAPSE (mm): 24.40 TVS' Dagoberto: 11.50 Tricuspid Valve RA Press: 3.00 Great Vessels Aorta Sinus of Valsalva: 2.70 2.0-3.5 cm Ao Asc: 2.60 2.1-3.4 cm Pulmonary Valve PV Pk Dagoberto: 1.17 Peak PV Grad: 5.00 Updated in Other Vendor System with Status of Final Jonah Watson MD electronically signed on 03/29/2022 3:17:02 PM with status of Final
== END ==
LOC: HO.CARD 09:21
PROVIDERS: Visit Provider Internal Medicine Cardiovascular Disease
DX: I26.99 Other pulmonary embolism without acute cor pulmonale (principal)
CPT/HCPCS: 93306

== ENCOUNTER 2022-05-15 14:39 | Emergency (ER) | payer OTHER, SELFPAY ==
[2022-05-15 16:10] VITALS: BP 151/82; PULSE 84; RESP 18; TEMP 36.8; O2SAT 97; BMI 34.9
== END 2022-05-15 17:24 | disposition left against medical advice (07) ==
PROVIDERS: Emergency Provider Emergency Medicine; PCP Internal Medicine
DX: R51.9 Headache, unspecified (principal)
CPT/HCPCS: 99281

== ENCOUNTER 2022-05-15 16:22 | Outpatient (REF) | payer OTHER, SELFPAY ==
--- NOTE | ~2022-05-15 | XR_ITS ---
EXAMINATION: XR SINUSES CLINICAL INFORMATION: Headache COMPARISON: None TECHNIQUE: 3 views of the sinuses were obtained. FINDINGS: Paranasal sinuses appear clear without air-fluid levels. No fractures are identified. No radiodense foreign bodies. XR/XR sinus min 3V IMPRESSION: Unremarkable examination.
[2022-05-15 16:37] LABS: MANUAL DIFF FLAG NO
[2022-05-15 17:33] LABS: Basophils Absolute Auto 0.1 X10*3/uL (0.0-0.2); Basophils Percent Auto 0.8 % (0-2); Eosinophils Absolute Auto 0.1 X10*3/uL (0.0-0.4); Hematocrit 43.2 % (37.0-47.0); Hemoglobin 14.3 g/dl (12.0-16.0); Imm Gran Abs Auto 0.05 X10*3/uL (0.00-0.03); Imm Gran Pct Auto 0.4 % (0.0-0.4); Lymphocytes Absolute Auto 2.9 X10*3/uL (1.2-4.9); Lymphocytes Percent Auto 23.2 % (20-40); Mean Corpuscular HGB Conc 33.1 g/dl (31.0-35.0); Mean Corpuscular Hemoglobin 30.2 pg (27.0-33.0); Mean Corpuscular Volume 91.3 fL (80.0-98.0); Mean Platelet Volume 9.5 fL (9.4-12.3); Monocytes Absolute Auto 1.1 X10*3/uL (0.1-1.2); Monocytes Percent Auto 8.5 % (2-11); Neutrophils Absolute Auto 8.2 x10*3/uL (2.0-8.3); Neutrophils Percent Auto 66.1 % (45-73); Platelet Count 635 X10*3/uL (160-400); Red Blood Count 4.73 X10*6/uL (4.20-5.50); Red Cell Distribution Width 14.5 % (11.0-16.0); White Blood Count 12.4 X10*3/uL (4.8-10.8)
[2022-05-15 17:40] LABS: Alanine Aminotransferase 32 U/L (0-31); Albumin Level 4.6 g/dL (3.5-5.0); Alkaline Phosphatase 125 U/L (39-117); Anion Gap 17 (12-20); Aspartate Amino Transferase 27 U/L (5-31); Bilirubin Total 0.3 mg/dL (0.0-1.0); Blood Urea Nitrogen 11 mg/dL (9-16); Calcium 9.3 mg/dL (8.4-10.2); Carbon Dioxide 28 mmol/L (22-29); Chloride 101 mmol/L (96-108); Estimated Glomerular Filt Rate > 60; Glucose Random 100 mg/dL (60-115); Potassium 4.2 mmol/L (3.3-5.1); Sodium 142 mmol/L (135-145)
[2022-05-15 18:17] LABS: Erythrocyte Sedimentation Rate 26 MM/HR (0-20)
== END 2022-05-15 16:23 | disposition home or self-care (01) ==
LOC: HO.LAB 16:22
PROVIDERS: PCP Internal Medicine; Visit Provider Internal Medicine
DX: R51.9 Headache, unspecified (principal); J45.909 Unspecified asthma, uncomplicated
CPT/HCPCS: 36415; 70220; 80053; 85025; 85652

== ENCOUNTER 2022-05-17 13:56 | Outpatient (REF) | payer OTHER, SELFPAY ==
[2022-05-17 14:49] LABS: Influenza A PCR NEGATIVE (Negative); Influenza B PCR NEGATIVE (Negative); Resp Syncy Virus RNA Qual PCR NEGATIVE (Negative); SARS COV2 PCR INHOUSE NEGATIVE (Negative)
== END 2022-05-17 13:57 | disposition home or self-care (01) ==
LOC: HO.LNP 13:56
PROVIDERS: Visit Provider Internal Medicine
DX: Z20.822 Contact with and (suspected) exposure to COVID-19 (principal); J06.9 Acute upper respiratory infection, unspecified; R05.9 Cough, unspecified; R51.9 Headache, unspecified
CPT/HCPCS: 0241U

== ENCOUNTER 2022-05-22 15:29 | Outpatient (REF) | payer OTHER, SELFPAY ==
--- NOTE | ~2022-05-22 | CT_ITS ---
EXAMINATION: CT HEAD WITHOUT CONTRAST CLINICAL INFORMATION: Injury of head COMPARISON: None TECHNIQUE: Contiguous axial imaging was performed from the skull base to vertex without intravenous administration of contrast. This CT examination was performed using dose optimization techniques as appropriate, variously including the following: *Automated exposure control *Adjustment of mA and/or kV according to patient size (this includes techniques or standardized protocols for targeted exams where dose is matched to indication/reason for exam; i.e. extremities or head) *Use of iterative reconstruction technique DLP: 752 mGy-cm FINDINGS: There is no intra or extra-axial fluid collection or hemorrhage, mass, or mass effect. Sulci and ventricles are unremarkable. Calvarium intact. No fracture. There is, however, a fluid level in the right maxillary sinus which could be reflective of sinus disease. There is a history, of an injury patient The adjacent bony structures do appear intact. If there is any trauma in this vicinity, I would recommend a formal facial bone CT. CT/CT head/brain wo IV con IMPRESSION: No acute intracranial abnormalities. Facial CT may be valuable given the findings in the right maxillary sinus.
== END 2022-05-22 15:30 | disposition home or self-care (01) ==
LOC: HO.CT 15:29
PROVIDERS: Visit Provider Internal Medicine
DX: S09.90XA Unspecified injury of head, initial encounter (principal); X58.XXXA Exposure to other specified factors, initial encounter; Y93.9 Activity, unspecified; Y92.9 Unspecified place or not applicable; Y99.9 Unspecified external cause status
CPT/HCPCS: 70450

== ENCOUNTER 2022-06-02 14:24 | Outpatient (REF) | payer OTHER, SELFPAY ==
--- NOTE | ~2022-06-02 | US_ITS ---
EXAMINATION: US VENOUS ULTRASOUND WITH DOPPLER LOWER EXTREMITY, BILATERAL CLINICAL INFORMATION: Swelling COMPARISON: Previous exam August 2021 TECHNIQUE: Ultrasound of the deep veins is performed from the hip to the calf with compression sonography and color and pulse Doppler assessment. Spectral analysis with color-flow imaging is performed. FINDINGS: RIGHT: There is normal venous compression and respiratory variation and augmented flow. The visualized common femoral vein, superficial femoral vein, profunda femoral vein, popliteal vein, and the trifurcation region shows no evidence of deep venous thrombosis. There is no significant popliteal fossa cyst. LEFT: There is normal venous compression and respiratory variation and augmented flow. The visualized common femoral vein, superficial femoral vein, profunda femoral vein, popliteal vein, and the trifurcation region shows no evidence of deep venous thrombosis. There is no significant popliteal fossa cyst. US/US venous duplex LE BI IMPRESSION: No DVT demonstrated in the bilateral lower extremity.
== END 2022-06-02 14:25 | disposition home or self-care (01) ==
LOC: HO.HMGCX 14:24
PROVIDERS: PCP Internal Medicine; Visit Provider Internal Medicine Pulmonary Disease
DX: I26.99 Other pulmonary embolism without acute cor pulmonale (principal)
CPT/HCPCS: 93970

== ENCOUNTER 2022-06-14 08:28 | Outpatient (REF) | payer OTHER, SELFPAY ==
--- NOTE | ~2022-06-14 | CT_ITS ---
EXAMINATION: CT MAXILLOFACIAL WITHOUT CONTRAST CLINICAL INFORMATION: Acute recurrent sinusitis COMPARISON: None TECHNIQUE: Multidetector helical imaging was performed in the axial plane using landmarks protocol with generation of coronal and sagittal reformatted images. This CT examination was performed using dose optimization techniques as appropriate, variously including the following: *Automated exposure control *Adjustment of mA and/or kV according to patient size (this includes techniques or standardized protocols for targeted exams where dose is matched to indication/reason for exam; i.e. extremities or head) *Use of iterative reconstruction technique DLP: 139 mGy-cm FINDINGS: FRONTAL SINUSES AND DRAINAGE PATHWAYS: Tiny mucous retention cyst in the left frontal sinus. The frontal sinuses otherwise clear. The frontal recesses are patent. MAXILLARY SINUSES AND DRAINAGE PATHWAYS: Right maxillary sinus mucous retention cyst in the alveolar recess measuring up to 1.7 cm. The maxillary ostia and infundibula are patent. ETHMOID SINUSES: The ethmoid air cells are clear. The ethmoid roofs appear intact and are symmetric. SPHENOID SINUS AND DRAINAGE PATHWAYS: The sphenoid sinus is clear.. Sphenoid ostia are opacified. The sphenoethmoidal recesses are patent. NASAL PASSAGE: Tiny polypoid mucosal thickening along the right aspect of the anterior nasal septum abutting the right inferior turbinate. The nasal cavity is otherwise clear. The osseous nasal septum is slightly deviated to the right. Left suki bullosa. ADDITIONAL RELEVANT FINDINGS: The lamina papyracea are intact. No demonstrated abnormalities of the orbits. The carotid canals are normally covered by bone. No significant maxillary periapical disease. The temporomandibular joints are normal. The mastoid air cells and middle ear cavities are well aerated. Limited evaluation of the intracranial structures without significant abnormalities. CT/CT sinus wo IV con IMPRESSION: Right maxillary sinus mucous retention cyst. The paranasal sinuses are otherwise essentially clear. Slight rightward deviation of the nasal septum.
== END 2022-06-14 08:29 | disposition home or self-care (01) ==
LOC: HO.CT 08:28
PROVIDERS: PCP Internal Medicine; Visit Provider Internal Medicine
DX: J01.81 Other acute recurrent sinusitis (principal)
CPT/HCPCS: 70486

== ENCOUNTER 2022-06-19 09:06 | Outpatient (REF) | payer OTHER, SELFPAY ==
--- NOTE | ~2022-06-19 | XR_ITS ---
EXAMINATION: XR ANKLE, RIGHT CLINICAL INFORMATION: Right ankle pain COMPARISON: None TECHNIQUE: AP, lateral, and mortise views of the right ankle. FINDINGS: Mortise intact. No fracture, dislocation or destructive process. XR/XR ankle RT min 3V IMPRESSION: No acute osseous abnormality.
== END 2022-06-19 09:07 | disposition home or self-care (01) ==
LOC: HO.HMGCX 09:06
PROVIDERS: PCP Internal Medicine; Visit Provider Emergency Medicine
DX: S99.911A Unspecified injury of right ankle, initial encounter (principal); X58.XXXA Exposure to other specified factors, initial encounter; Y93.9 Activity, unspecified; Y92.9 Unspecified place or not applicable; Y99.9 Unspecified external cause status
CPT/HCPCS: 73610

== ENCOUNTER → 2022-07-19 11:30 | Outpatient (BNVA) | payer OTHER, SELFPAY | PROVIDERS: PCP Internal Medicine; Referring Provider Internal Medicine; Visit Provider Internal Medicine Cardiovascular Disease | DX: Z13.89 Encounter for screening for other disorder (principal) ==

== ENCOUNTER 2022-08-24 08:38 | Outpatient (REF) | payer OTHER, SELFPAY | END 2022-08-24 08:39 | disposition home or self-care (01) | LOC: HO.MDS 08:38 | PROVIDERS: Visit Provider Internal Medicine Pulmonary Disease | DX: J45.50 Severe persistent asthma, uncomplicated (principal) | CPT/HCPCS: 96372; J2182 ==

== ENCOUNTER → 2022-09-11 10:40 | Outpatient (BNV) | payer OTHER, SELFPAY | PROVIDERS: PCP Internal Medicine; Visit Provider Internal Medicine | DX: I27.82 Chronic pulmonary embolism (principal); D75.838 Other thrombocytosis; D72.829 Elevated white blood cell count, unspecified | CPT/HCPCS: 99213; 99214; G2211 ==

== ENCOUNTER → 2022-09-19 14:20 | Outpatient (BNVA) | payer OTHER, SELFPAY | PROVIDERS: PCP Internal Medicine; Visit Provider Internal Medicine Pulmonary Disease | DX: Z13.89 Encounter for screening for other disorder (principal) ==

== ENCOUNTER 2022-09-21 08:56 | Outpatient (REF) | payer OTHER, SELFPAY | END 2022-09-21 08:57 | disposition home or self-care (01) | LOC: HO.MDS 08:56 | PROVIDERS: Visit Provider Internal Medicine Pulmonary Disease | DX: J45.50 Severe persistent asthma, uncomplicated (principal) | CPT/HCPCS: 96372; J2182 ==

== ENCOUNTER 2022-10-19 08:21 | Outpatient (REF) | payer OTHER, SELFPAY | END 2022-10-19 08:22 | disposition home or self-care (01) | LOC: HO.MDS 08:21 | PROVIDERS: Visit Provider Internal Medicine Pulmonary Disease | DX: J45.50 Severe persistent asthma, uncomplicated (principal) | CPT/HCPCS: 96372; J2182 ==

== ENCOUNTER 2022-11-16 08:56 | Outpatient (REF) | payer OTHER, SELFPAY | END 2022-11-16 08:57 | disposition home or self-care (01) | LOC: HO.MDS 08:56 | PROVIDERS: Visit Provider Internal Medicine Pulmonary Disease | DX: J45.50 Severe persistent asthma, uncomplicated (principal) | CPT/HCPCS: 96372; J2182 ==

== ENCOUNTER 2022-11-28 10:00 | Outpatient (REF) | payer OTHER, SELFPAY ==
[2022-11-28 10:21] LABS: MANUAL DIFF FLAG NO
[2022-11-28 10:35] LABS: Basophils Absolute Auto 0.1 X10*3/uL (0.0-0.2); Basophils Percent Auto 0.8 % (0-2); Eosinophils Percent Auto 0.4 % (0-4); Hematocrit 38.4 % (37.0-47.0); Hemoglobin 12.9 g/dl (12.0-16.0); Imm Gran Abs Auto 0.03 X10*3/uL (0.00-0.03); Imm Gran Pct Auto 0.3 % (0.0-0.4); Lymphocytes Absolute Auto 2.5 X10*3/uL (1.2-4.9); Lymphocytes Percent Auto 27.8 % (20-40); Mean Corpuscular HGB Conc 33.6 g/dl (31.0-35.0); Mean Corpuscular Hemoglobin 30.2 pg (27.0-33.0); Mean Corpuscular Volume 89.9 fL (80.0-98.0); Mean Platelet Volume 9.5 fL (9.4-12.3); Monocytes Absolute Auto 0.8 X10*3/uL (0.1-1.2); Monocytes Percent Auto 8.7 % (2-11); Neutrophils Absolute Auto 5.6 x10*3/uL (2.0-8.3); Platelet Count 520 X10*3/uL (160-400); Red Blood Count 4.27 X10*6/uL (4.20-5.50); Red Cell Distribution Width 14.6 % (11.0-16.0); White Blood Count 9.1 X10*3/uL (4.8-10.8)
[2022-11-28 11:03] LABS: Alanine Aminotransferase 20 U/L (0-31); Albumin Level 4.1 g/dL (3.5-5.0); Alkaline Phosphatase 104 U/L (39-117); Anion Gap 12 (12-20); Aspartate Amino Transferase 16 U/L (5-31); Bilirubin Total 0.4 mg/dL (0.0-1.0); Blood Urea Nitrogen 9 mg/dL (9-16); Calcium 9.3 mg/dL (8.4-10.2); Carbon Dioxide 28 mmol/L (22-29); Chloride 103 mmol/L (96-108); Cholesterol 184 mg/dL; Estimated Glomerular Filt Rate > 60; Glucose Fasting 107 mg/dL (60-99); HDL Cholesterol 51 mg/dL; LDL Cholesterol Calculated 99 mg/dl; Potassium 4.1 mmol/L (3.3-5.1); Sodium 139 mmol/L (135-145); Total Protein 6.9 g/dL (6.5-8.0); Triglycerides 171 mg/dL
[2022-11-28 11:18] LABS: Vitamin D 25-OH Total 52.9 ng/mL (>30)
[2022-11-28 14:04] LABS: Appearance Urine Cloudy; Color Urine Yellow; Glucose Urine UA Negative (Negative); Leukocyte Esterase Urine Large (3+) (Negative); Nitrite Urine Negative (Negative); UMIC TRIGGER UA YES; Urine Blood Negative (Negative); Urine Ketones Negative (Negative); Urine Protein 30 (1+) mg/dL (Neg-Trace)
[2022-11-28 14:17] LABS: Bacteria Urine 3+ (None Seen); Hyaline Casts Urine 0-2 /LPF (0-2); Squamous Epithelial Cell Urine >20 /HPF (0-2); WBC Urine >50 /HPF (0-5)
== END 2022-11-28 10:01 | disposition home or self-care (01) ==
LOC: HO.10HDL 10:00
PROVIDERS: Visit Provider Internal Medicine
DX: Z00.00 Encounter for general adult medical examination without abnormal findings (principal); M85.80 Other specified disorders of bone density and structure, unspecified site; Z82.49 Family history of ischemic heart disease and other diseases of the circulatory system
CPT/HCPCS: 36415; 80053; 80061; 81001; 81003; 82306; 85025

== ENCOUNTER → 2022-12-15 10:06 | Outpatient (BNVA) | payer OTHER, SELFPAY | PROVIDERS: PCP Internal Medicine; Visit Provider Internal Medicine Pulmonary Disease ==

== ENCOUNTER 2023-01-11 08:28 | Outpatient (REF) | payer OTHER, SELFPAY | END 2023-01-11 08:29 | disposition home or self-care (01) | LOC: HO.MDS 08:28 | PROVIDERS: Visit Provider Internal Medicine Pulmonary Disease | DX: J45.50 Severe persistent asthma, uncomplicated (principal) | CPT/HCPCS: 96372; J2182 ==

== ENCOUNTER 2023-01-22 08:50 | Outpatient (AMB) | payer OTHER, SELFPAY ==
--- NOTE | 2023-01-22 09:04 | MHC.OFFVIS ---
Intake Vital Signs 01/22/23 09:05 Height 5 ft 2 in Weight 189 lb 9.561 oz BMI 34.7 BP 114/80 Blood Pressure Location Lt brachial Position Sitting Pulse 88 Intake Visit Reasons: 6 mth f/up Intake Note: 6 month follow-up had abnormal ekg in pcp office last month c/o leg swelling Big Data Admin Required: No Allergies Iodinated Contrast Media [IV CONTRAST] Allergy (Intermediate, Verified 12/15/22 10:14) HIVES amlodipine Allergy (Mild, Verified 12/15/22 10:14) Blister cefaclor [From Ceclor] Allergy (Mild, Verified 12/15/22 10:14) HIVES codeine [Codeine] Allergy (Mild, Verified 12/15/22 10:14) NAUSEA & VOMITING Sulfa (Sulfonamide Antibiotics) [Sulfa (Sulfonamides)] Allergy (Mild, Verified 12/15/22 10:14) NAUSEA & VOMITING, severe vomiting Medication List - Last Reconciled 01/22/23 by Jonah Watson MD apixaban (Eliquis) 5 mg PO BID atorvastatin 10 mg PO DAILY cholecalciferol (vitamin D3) (Vitamin D3) 125 mcg PO DAILY diltiazem HCl 240 mg PO DAILY 90 days famotidine (Pepcid) 40 mg PO DAILY fluoxetine 20 mg PO DAILY fluticasone propion-salmeterol 230-21 mcg/actuation (Advair HFA) 2 puffs inhalation Q12H 30 days furosemide 40 mg PO DAILY levalbuterol tartrate 45 mcg/actuation 2 puffs inhalation Q4-6H mepolizumab (Nucala) 100 mg subcut Q4W nortriptyline 10 mg PO DAILY omeprazole 20 mg PO BID tiotropium bromide 2.5 mcg/actuation (Spiriva Respimat) 2 puffs inhalation QAM HPI HPI Comments History of Present Illness Details 62-year-old female here for f/u. She was diagnosed with PE. She was experiencing SOB, sharp CP and tachycardia. She continues to have significant dyspnea which is out in proportion to the small PE and is due to asthma. She is following with pulmonology She has no significant lower extremity edema. 07/19/22: She still has pressure like chest discomfort. Previous cardiac work up including cardiac cath were normal. She is also complaining of orthopnea but dyspnea did not respond to higher diuretics dose. Taking Eliquis. We had a discussion about referral to Hematology about duration of anticoagulation. She has followed with Hematology and has decided to stay on Eliquis for now. 01/22/23: She is here for follow-up. EKG in the office in showing sinus rhythm 89 beats per minute, normal axis, normal ECG, QTC 479 milliseconds. She is complaining of lower extremity edema. She is saying her asthma has been uncontrolled. Denying any chest discomfort otherwise. She has been taking apixaban regularly and is following with Hematology to decide the duration of apixaban. [facility] Medical History Ankle injuries Surgical History H/O splenectomy H/O: hysterectomy History of cholecystectomy Family History Father CAD (coronary artery disease) Mother Asthma Social History Household Members: Spouse Housing: House Alcohol intake: current Alcohol intake frequency: a few times a month Patient Tobacco Use Status: Never used Tobacco service: No Current occupational status: employed Review of Systems Const Denies chills, Denies fatigue, Denies fever(s), Denies frequent falls, Denies weakness, Denies weight gain and Denies weight loss ENT Denies dizziness Card Denies chest pain, Denies leg edema, Denies lightheadedness, Denies palpitations, Denies dyspnea, Denies dyspnea on exertion, Denies orthopnea and Denies other (loss of consciousness) Resp Denies cough, Denies dyspnea and Denies dyspnea on exertion GI Denies hematochezia and Denies change in stool character Musc Denies abnormal gait, Denies muscle weakness, Denies numbness, Denies radiating pain into limb and Denies tingling Neuro Denies abnormal gait, Denies dizziness, Denies frequent falls, Denies numbness, Denies tingling and Denies weakness Endo Denies fatigue and Denies palpitations Physical Exam Vital Signs: Last Vital Signs Pulse 88 01/22/23 09:05 BP 114/80 01/22/23 09:05 BMI result Body Mass Index 34.7 GENERAL APPEARANCE: In no acute distress. NECK: no carotid bruit, no jugular venous distention. SKIN: no suspicious lesions, warm and dry. HEART: no murmurs, regular rate and rhythm. LUNGS: clear to auscultation bilaterally. ABDOMEN: soft, nontender. EXTREMITIES: no edema. PERIPHERAL PULSES: equal. NEUROLOGIC: No gross deficits, AAO X 3 Office Procedures EKG Details: sinus rhythm 89 beats per minute, normal axis, normal ECG, QTC 479 milliseconds. [id number], Complete Assessment & Plan Assessment & Plan (1) Pulmonary embolism: Code(s): I26.99 - Other pulmonary embolism without acute cor pulmonale (2) Tachycardia: Code(s): R00.0 - Tachycardia, unspecified (3) Chest pain: Code(s): R07.9 - Chest pain, unspecified (4) Hypertension: Code(s): I10 - Essential (primary) hypertension Plan 62 year female here for follow-up. She has background of pulmonary embolism. She is on apixaban currently. She is following with Hematology to decide the duration of anticoagulation. She had driven to [place] and was also given Xolair before she had pulmonary embolism. This can be considered a provoked event. Blood pressure control is good. Her main complaint is lower extremity edema. This happens as the day passes. I think this is related to venous sufficiency versus medications including diltiazem. Her heart rate is very well controlled right now with diltiazem and previously she had significant sinus tachycardia and palpitations. I have advised her to continue furosemide 40 mg daily and try some compression stockings. We will also arrange lower extremity venous insufficiency study. Thank you for allowing me to participate in the care of your patient. Please feel free to contact me if you have any questions. Orders: Orders US venous duplex UE BI Today R60.9 - Edema, unspecified Medications: New comp.stocking,knee,long,medium As directed 4 ea 0RF R60.9 - Edema, unspecified Coding Level of Care Code Est Pt Level 4 (38259) Diagnoses Pulmonary embolism I26.99 Tachycardia R00.0 Chest pain R07.9 Hypertension I10 CPT Codes EKG - CPT: 54567-[id number], Complete ([id number])
[2023-01-22 09:05] VITALS: BP 114/80; PULSE 88; BMI 34.7
== END 2023-01-22 10:04 | disposition home or self-care (01) ==
PROVIDERS: Visit Provider Internal Medicine Cardiovascular Disease
DX: I26.99 Other pulmonary embolism without acute cor pulmonale (principal); R00.0 Tachycardia, unspecified; R07.9 Chest pain, unspecified; I10 Essential (primary) hypertension; R60.9 Edema, unspecified
CPT/HCPCS: 93010; 99214

== ENCOUNTER → 2023-01-22 08:50 | Outpatient (BNVA) | payer OTHER, SELFPAY | PROVIDERS: Visit Provider Internal Medicine Cardiovascular Disease | DX: I26.99 Other pulmonary embolism without acute cor pulmonale (principal); R00.0 Tachycardia, unspecified; R07.9 Chest pain, unspecified; I10 Essential (primary) hypertension; Z79.01 Long term (current) use of anticoagulants | CPT/HCPCS: 93005 ==

== ENCOUNTER 2023-01-30 10:25 | Outpatient (REF) | payer OTHER, SELFPAY ==
--- NOTE | ~2023-01-30 | US_ITS ---
EXAMINATION: US LOWER EXTREMITY VENOUS (REFLUX EXAM), BILATERAL CLINICAL INDICATION: Chronic venous insufficiency with lower extremity edema COMPARISON: None. TECHNIQUE: Color flow triplex imaging and compression Doppler was performed to evaluate both the deep and the superficial systems bilaterally. To evaluate the superficial system, the examination was performed in the upright position. Color-flow Doppler ultrasound and compression ultrasound were utilized. In addition, maneuvers were utilized to demonstrate reflux. FINDINGS: 1. DEEP VENOUS ULTRASOUND OF THE RIGHT LOWER EXTREMITY: Common Femoral Vein: Compressible, normal respiratory variation and augmented flow. Femoral Vein: Compressible, normal color flow and augmentation. Popliteal Vein: Compressible, normal augmentation. Deep Reflux: There is no evidence of reflux in the deep system in either the common femoral vein or the popliteal vein. There is no evidence of a Kincaid's cyst. 2. SUPERFICIAL ULTRASOUND WITH DOPPLER OF RIGHT LOWER EXTREMITY: GREAT SAPHENOUS VEIN: Saphenofemoral Junction: 1.0 cm; Reflux: 0 ms Proximal Thigh: 0.9 cm; Reflux: 1952 ms Mid Thigh: 0.5 cm; Reflux: 2060 ms Above Knee: 0.4 cm; Reflux: 2616 ms At Knee: 0.4 cm; Reflux: 976 ms Below Knee: 0.4 cm; Reflux: 2308 ms Mid Calf: 0.3 cm; Reflux: 1132 ms Ankle: 0.4 cm; Reflux: 0 ms DUPLICATED MEDIAL GREAT SAPHENOUS VEIN: Diameter: 0.4 cm Reflux: None DUPLICATED LATERAL GREAT SAPHENOUS VEIN: Diameter: 0.3 cm Reflux: None SMALL SAPHENOUS VEIN: Proximal: 0.2 cm; Reflux: 0 ms Distal: 0.2 cm; Reflux: 0 ms VEIN OF GIACOMINI: Size: NA Reflux: NA PERFORATORS: Location: Mid thigh Size: 0.3 cm Reflux: 2944 ms VARICOSITIES: Location: Mid thigh and proximal calf Size: 0.3 to 0.4 cm Reflux: 2228 ms 3. DEEP VENOUS ULTRASOUND OF THE LEFT LOWER EXTREMITY: Common Femoral Vein: Compressible, normal respiratory variation and augmented flow. Femoral Vein: Compressible, normal color flow and augmentation. Popliteal Vein: Compressible, normal augmentation. Deep Reflux: There is no evidence of reflux in the deep system in either the common femoral vein or the popliteal vein. There is no evidence of a Kincaid's cyst. 4. SUPERFICIAL ULTRASOUND WITH DOPPLER OF LEFT LOWER EXTREMITY: GREAT SAPHENOUS VEIN: Saphenofemoral Junction: 1.1 cm; Reflux: 840 ms Proximal Thigh: 0.9 cm; Reflux: 616 ms Mid Thigh: 0.6 cm; Reflux: 2480 ms Above Knee: 0.4 cm; Reflux: 2520 ms At Knee: 0.4 cm; Reflux: 2492 ms Below Knee: 0.4 cm; Reflux: 2684 ms Mid Calf: 0.3 cm; Reflux: 0 ms Ankle: 0.3 cm; Reflux: 0 ms DUPLICATED MEDIAL GREAT SAPHENOUS VEIN: Diameter: None imaged Reflux: NA DUPLICATED LATERAL GREAT SAPHENOUS VEIN: Diameter: None imaged Reflux: NA SMALL SAPHENOUS VEIN: Proximal: 0.3 cm; Reflux: 0 ms Distal: 0.2 cm; Reflux: 0 ms VEIN OF GIACOMINI: Size: NA Reflux: NA PERFORATORS: Location: Proximal calf Size: 0.5 cm Reflux: None VARICOSITIES: Location: Proximal thigh, knee and proximal calf Size: 0.3 to 0.4 cm Reflux: 2580 ms US/US venous duplex LE BI IMPRESSION: Right: Severe reflux throughout the right great saphenous vein. Multiple branching varicosities Left: Severe reflux throughout the left great saphenous vein. Multiple branching varicosities
== END 2023-01-30 10:26 | disposition home or self-care (01) ==
LOC: HO.US 10:25
PROVIDERS: PCP Internal Medicine; Visit Provider Internal Medicine Cardiovascular Disease
DX: I87.2 Venous insufficiency (chronic) (peripheral) (principal); R60.9 Edema, unspecified
CPT/HCPCS: 93970

== ENCOUNTER 2023-02-08 08:26 | Outpatient (REF) | payer OTHER, SELFPAY | END 2023-02-08 08:27 | disposition home or self-care (01) | LOC: HO.MDS 08:26 | PROVIDERS: Visit Provider Internal Medicine Pulmonary Disease | DX: J45.50 Severe persistent asthma, uncomplicated (principal) | CPT/HCPCS: 96372; J2182 ==

== ENCOUNTER 2023-03-13 10:45 | Outpatient (REF) | payer OTHER, SELFPAY ==
[2023-03-13 13:17] LABS: MANUAL DIFF FLAG NO
[2023-03-13 13:21] LABS: Basophils Absolute Auto 0.1 X10*3/uL (0.0-0.2); Basophils Percent Auto 0.9 % (0-2); Eosinophils Percent Auto 0.4 % (0-4); Hematocrit 41.6 % (37.0-47.0); Hemoglobin 13.9 g/dl (12.0-16.0); Imm Gran Abs Auto 0.05 X10*3/uL (0.00-0.03); Imm Gran Pct Auto 0.5 % (0.0-0.4); Lymphocytes Percent Auto 31.5 % (20-40); Mean Corpuscular HGB Conc 33.4 g/dl (31.0-35.0); Mean Corpuscular Hemoglobin 30.7 pg (27.0-33.0); Mean Corpuscular Volume 91.8 fL (80.0-98.0); Monocytes Absolute Auto 0.9 X10*3/uL (0.1-1.2); Monocytes Percent Auto 8.8 % (2-11); Neutrophils Absolute Auto 5.6 x10*3/uL (2.0-8.3); Neutrophils Percent Auto 57.9 % (45-73); Platelet Count 596 X10*3/uL (160-400); Red Blood Count 4.53 X10*6/uL (4.20-5.50); Red Cell Distribution Width 14.2 % (11.0-16.0); White Blood Count 9.6 X10*3/uL (4.8-10.8)
[2023-03-13 13:22] LABS: Appearance Urine Clear; Color Urine Yellow; Glucose Urine UA Negative (Negative); Leukocyte Esterase Urine Negative (Negative); Nitrite Urine Negative (Negative); Urine Blood Negative (Negative); Urine Ketones Negative (Negative); Urine Protein Negative (Neg-Trace)
[2023-03-13 13:27] LABS: Bacteria Urine Trace (None Seen); Hyaline Casts Urine 0-2 /LPF (0-2); RBC Urine 0-2 /HPF (0-2); Squamous Epithelial Cell Urine 0-2 /HPF (0-2); WBC Urine 0-5 /HPF (0-5)
[2023-03-13 13:29] LABS: Estimated Average Glucose 126 mg/dL; Hemoglobin A1C 149.0719 umol/L
[2023-03-13 13:52] LABS: Alanine Aminotransferase 23 U/L (0-31); Albumin Level 4.3 g/dL (3.5-5.0); Alkaline Phosphatase 105 U/L (39-117); Anion Gap 13 (12-20); Aspartate Amino Transferase 19 U/L (5-31); Bilirubin Total 0.3 mg/dL (0.0-1.0); Blood Urea Nitrogen 9 mg/dL (9-16); C Reactive Protein 1.16 mg/dL (< or = 0.50); Calcium 9.5 mg/dL (8.4-10.2); Carbon Dioxide 26 mmol/L (22-29); Chloride 106 mmol/L (96-108); Estimated Glomerular Filt Rate > 60; Glucose Random 145 mg/dL (60-115); Potassium 3.5 mmol/L (3.3-5.1); Sodium 141 mmol/L (135-145); Total Protein 7.6 g/dL (6.5-8.0)
== END 2023-03-13 10:46 | disposition home or self-care (01) ==
LOC: HO.10HDL 10:45
PROVIDERS: Visit Provider Internal Medicine
DX: J45.909 Unspecified asthma, uncomplicated (principal); I10 Essential (primary) hypertension; R60.9 Edema, unspecified; R73.03 Prediabetes
CPT/HCPCS: 36415; 80053; 81001; 83036; 85025; 86140; 87086

== ENCOUNTER 2023-03-26 08:01 | Outpatient (AMB) | payer OTHER, SELFPAY ==
[2023-03-26 08:09] VITALS: BP 132/80; PULSE 102; TEMP 36.8; O2SAT 99; BMI 34.6
--- NOTE | 2023-03-26 08:09 | AM.OFFWIN_ITS ---
Intake Vital Signs 03/26/23 08:09 Height 5 ft 2 in Weight 189 lb BMI 34.6 BP 132/80 Blood Pressure Location Rt brachial Position Sitting Pulse 102 H Pulse Source Pulse Oximeter Temp 98.2 F Temp Source Temporal Artery Scan Pulse Oximetry (%) 99 Intake Visit Reasons: EP RT knee Injury-Pain Intake Note: pt is here for c/o knee pain, patient was in yoga and felt she twist it Patient Tobacco Use Status: Never used Tobacco Allergies Iodinated Contrast Media [IV CONTRAST] Allergy (Intermediate, Verified 03/26/23 08:38) HIVES amlodipine Allergy (Mild, Verified 03/26/23 08:38) Blister cefaclor [From Ceclor] Allergy (Mild, Verified 03/26/23 08:38) HIVES codeine [Codeine] Allergy (Mild, Verified 03/26/23 08:38) NAUSEA & VOMITING Sulfa (Sulfonamide Antibiotics) [Sulfa (Sulfonamides)] Allergy (Mild, Verified 03/26/23 08:38) NAUSEA & VOMITING, severe vomiting Medication List - Last Reconciled 03/26/23 by James Orosco MD apixaban (Eliquis) 5 mg PO BID atorvastatin 10 mg PO DAILY cholecalciferol (vitamin D3) (Vitamin D3) 125 mcg PO DAILY comp.stocking,knee,long,medium As directed diltiazem HCl 240 mg PO DAILY 90 days famotidine (Pepcid) 40 mg PO DAILY fluoxetine 20 mg PO DAILY fluticasone propion-salmeterol 230-21 mcg/actuation (Advair HFA) 2 puffs inhalation Q12H 30 days furosemide 40 mg PO DAILY levalbuterol tartrate 45 mcg/actuation 2 puffs inhalation Q4-6H mepolizumab (Nucala) 100 mg subcut Q4W nortriptyline 10 mg PO DAILY omeprazole 20 mg PO BID tiotropium bromide 2.5 mcg/actuation (Spiriva Respimat) 2 puffs inhalation QAM Do you need a note to return to daycare/school/sports/work: Yes HPI EP RT knee Injury-Pain HPI Details 63-year-old female presents to the [facility] for a sick visit. Patient is complaining of pain in the right knee for the past 3 days. Does not recall any fall or injury prior to the onset of symptoms. Patient admits to have and rolled in yoga in the past few months. She is having sharp pain in the right knee and but is able to walk. She is using no assistance to walk [facility] Medical History (Updated 03/26/23 @ 08:36 by James Orosco MD) Ankle injuries Surgical History H/O splenectomy H/O: hysterectomy History of cholecystectomy Family History Father CAD (coronary artery disease) Mother Asthma Social History Household Members: Spouse Housing: House Alcohol intake: current Alcohol intake frequency: a few times a month Patient Tobacco Use Status: Never used Tobacco service: No Current occupational status: employed Physical Exam Vital Signs: Last Vital Signs Temp 98.2 F 03/26/23 08:09 Pulse 102 H 03/26/23 08:09 BP 132/80 03/26/23 08:09 Pulse Ox 99 03/26/23 08:09 BMI result Body Mass Index 34.6 Extrem Other: Right knee: Swelling in the suprapatellar area. Joint line tenderness very prominent on the medial side. Flexion and extension possible with minimal discomfort. No pain on adduction and abduction. Full range of motion at the hip. Assessment & Plan Assessment & Plan (1) Sprain of right knee: Code(s): S83.91XA - Sprain of unspecified site of right knee, initial encounter Plan: X-ray images personally reviewed by me. Suprapatellar effusion present. Anti- inflammatories and knees splint provided. Note for work provided. Orders: Orders XR knee RT 4V Today S83.91XA - Sprain of unspecified site of right knee, initial encounter Coding Level of Care Code Est Pt Level 4 (03849) Diagnoses Sprain of right knee S83.91XA
== END 2023-03-26 09:10 | disposition home or self-care (01) ==
PROVIDERS: PCP Internal Medicine; Visit Provider Internal Medicine
DX: S83.91XA Sprain of unspecified site of right knee, initial encounter (principal)
CPT/HCPCS: 99214

== ENCOUNTER 2023-03-26 08:38 | Outpatient (REF) | payer OTHER, SELFPAY ==
--- NOTE | ~2023-03-26 | XR_ITS ---
EXAMINATION: XR KNEE, RIGHT CLINICAL INFORMATION: Right knee sprain. COMPARISON: None available. TECHNIQUE: Four views of the right knee. FINDINGS: Alignment is anatomic. Joint spaces are maintained. No displaced fracture. No significant joint effusion. XR/XR knee RT 4V IMPRESSION: No acute abnormality.
== END 2023-03-26 08:39 | disposition home or self-care (01) ==
LOC: HO.HMGCX 08:38
PROVIDERS: PCP Internal Medicine; Visit Provider Internal Medicine
DX: S83.91XA Sprain of unspecified site of right knee, initial encounter (principal)
CPT/HCPCS: 73564

== ENCOUNTER 2023-03-29 12:30 | Outpatient (REF) | payer OTHER, SELFPAY ==
--- NOTE | ~2023-03-29 | CT_ITS ---
EXAMINATION: CT KNEE WITHOUT CONTRAST, RIGHT CLINICAL INFORMATION: Twisting injury of the right knee. Swelling. COMPARISON: Radiographs dated 03/26/2023. TECHNIQUE: Multidetector volumetric imaging was obtained through the right knee without contrast. Multiplanar reformatted images in coronal and sagittal orientations were submitted. This CT examination was performed using dose optimization techniques as appropriate, variously including the following: *Automated exposure control *Adjustment of mA and/or kV according to patient size (this includes techniques or standardized protocols for targeted exams where dose is matched to indication/reason for exam; i.e. extremities or head) *Use of iterative reconstruction technique DLP: 120 mGy-cm FINDINGS: No fracture or malalignment. Bone mineralization appears within normal limits. Tiny marginal osteophytes are present at the patellofemoral compartment. Medial and lateral compartments appear relatively well-preserved. No osseous lesions are identified. Normal trochlear morphology. Patella is appropriately situated at the trochlea. No joint effusion or Kincaid's cyst. Cruciate and collateral ligaments are grossly unremarkable, though sensitivity for subtle abnormalities is limited. No osseous intra-articular loose bodies. Quadriceps and patellar tendons appear intact. Musculature is unremarkable. CT/CT knee RT wo IV con IMPRESSION: 1. No acute fracture or malalignment at the right knee. No acute CT findings. 2. Minimal patellofemoral compartment osteoarthritis.
== END 2023-03-29 12:31 | disposition home or self-care (01) ==
LOC: HO.CT 12:30
PROVIDERS: PCP Internal Medicine; Visit Provider Internal Medicine
DX: S83.91XA Sprain of unspecified site of right knee, initial encounter (principal)
CPT/HCPCS: 73700

== ENCOUNTER 2023-04-03 09:04 | Outpatient (AMB) | payer OTHER, SELFPAY ==
--- NOTE | 2023-04-03 09:23 | MHC.OFFVIS ---
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 The patient states that she 1st injured her knee several years ago. She twisted her knee and had acute onset of pain. Several months ago she reaggravated her pain. She states that most of the pain is along the medial aspect of her knee. She states that her right knee will give out several times per day. She has done physical therapy which aggravated her symptoms. She has also tried Tylenol which gives her minimal relief. She is not able to tolerate anti-inflammatory medicines because she is on Eliquis. She has had injections in the past which gave her minimal relief. Allergies Iodinated Contrast Media [IV CONTRAST] Allergy (Intermediate, Verified 03/26/23 08:38) HIVES amlodipine Allergy (Mild, Verified 03/26/23 08:38) Blister cefaclor [From Ceclor] Allergy (Mild, Verified 03/26/23 08:38) HIVES codeine [Codeine] Allergy (Mild, Verified 03/26/23 08:38) NAUSEA & VOMITING Sulfa (Sulfonamide Antibiotics) [Sulfa (Sulfonamides)] Allergy (Mild, Verified 03/26/23 08:38) NAUSEA & VOMITING, severe vomiting Medication List - Last Reconciled 04/03/23 by Charlie Limon MD apixaban (Eliquis) 5 mg PO BID atorvastatin 10 mg PO DAILY cholecalciferol (vitamin D3) (Vitamin D3) 125 mcg PO DAILY comp.stocking,knee,long,medium As directed diltiazem HCl 240 mg PO DAILY 90 days famotidine (Pepcid) 40 mg PO DAILY fluoxetine 20 mg PO DAILY fluticasone propion-salmeterol 230-21 mcg/actuation (Advair HFA) 2 puffs inhalation Q12H 30 days furosemide 40 mg PO DAILY levalbuterol tartrate 45 mcg/actuation 2 puffs inhalation Q4-6H mepolizumab (Nucala) 100 mg subcut Q4W nortriptyline 10 mg PO DAILY omeprazole 20 mg PO BID tiotropium bromide 2.5 mcg/actuation (Spiriva Respimat) 2 puffs inhalation QAM PFSH Medical History (Updated 04/03/23 @ 13:53 by Charlie Limon MD) Ankle injuries Surgical History History of cholecystectomy H/O: hysterectomy H/O splenectomy Family History Father CAD (coronary artery disease) Mother Asthma Social History Household Members: Spouse Housing: House Alcohol intake: current Alcohol intake frequency: a few times a month Patient Tobacco Use Status: Never used Tobacco service: No Current occupational status: employed Physical Exam Const Other: Well-nourished well-developed very friendly female awake alert and oriented x3 in no acute distress Extrem Other: Bilateral lower extremity examination shows good capillary refill, no skin lesions noted, normal sensation light touch Right knee examination shows a minimal effusion, mild crepitus with range of motion, tenderness along her medial joint line, positive Alfredo's test, no instability Results Reviewed Results Reviewed: X-rays of the patient's right knee show mild diffuse joint space narrowing, no acute bony abnormalities Assessment & Plan Assessment & Plan (1) Tear of medial meniscus of right knee: Code(s): S83.241A - Other tear of medial meniscus, current injury, right knee, initial encounter Plan: Ms. Esthela Sanders presents with progressively worsening right knee pain and mechanical symptoms most likely due to a tear of her medial meniscus. Thus I will send the patient for an MRI of her right knee for further evaluation. I will see her back once the MRI is completed to discuss the findings and treatment options. Feel free to call me at any time should questions regarding her orthopedic management arise. Thank you very much for asking me to see this very friendly. I spent 22 minutes in reviewing the patient's records and imaging studies, seeing the patient and documenting in the medical record. Coding Level of Care Code New Pt Level 2 (56996) Diagnoses Tear of medial meniscus of right knee S83.241A
== END 2023-04-03 09:59 | disposition home or self-care (01) ==
PROVIDERS: PCP Internal Medicine; Visit Provider Orthopaedic Surgery
DX: S83.241A Other tear of medial meniscus, current injury, right knee, initial encounter (principal)
CPT/HCPCS: 99202

== ENCOUNTER → 2023-04-03 09:04 | Outpatient (BNVA) | payer OTHER, SELFPAY | PROVIDERS: PCP Internal Medicine; Visit Provider Orthopaedic Surgery ==

== ENCOUNTER 2023-04-05 14:25 | Outpatient (AMB) | payer OTHER, SELFPAY ==
[2023-04-05 14:27] VITALS: BMI 34.6
--- NOTE | 2023-04-05 14:27 | MHC.OFFVIS ---
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 Has Hx of PE and is on Xarelto and Lasix. Pt states elevation helps and has tried compression. Pt states she has some VV as well. 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 Complaints include swelling of lower extremities, cramping, fatigue, and heaviness of the lower extremities. It has been affecting there daily activities including walking. It is noted more so in right leg. Patient denies any previous venous surgery or injections. Patient does have a history of a PE noted nearly a year ago for which she is on Eliquis Patient denies any history of phlebitis. Trial of compression includes - prescription compression prescribed by Cardiology several months ago They now present for vascular evaluation regarding their varicose veins. [facility] Medical History Ankle injuries Surgical History History of cholecystectomy H/O: hysterectomy H/O splenectomy Family History Father CAD (coronary artery disease) Mother Asthma Social History Household Members: Spouse Housing: House Alcohol intake: current Alcohol intake frequency: a few times a month Patient Tobacco Use Status: Never used Tobacco service: No Current occupational status: employed Review of Systems Const Reports as per HPI ENT Reports no additional complaints Card Denies chest pain, Denies chest pain at rest and Denies chest pain with activity Resp Denies chest congestion and Denies cough GI Reports no additional complaints Musc Details: pain over varicosities, aching of lower extremities, swelling, cramping, heaviness and tiredness, itching Denies abnormal gait Skin/Breast Reports pruritus and Denies wounds Neuro Reports no additional complaints and Denies abnormal gait Psych Denies no additional complaints Physical Exam Vital Signs: BMI result Body Mass Index 34.6 Const General: cooperative, healthy appearing and comfortable Orientation/consciousness: oriented to person, oriented to place and oriented to time Neck Carotids: no bruits Chest Chest palpation & inspection: normal inspection of the chest and normal palpation of entire chest wall Resp Effort & Inspection: normal respiratory effort and able to speak in complete sentences Cardio Rate: regular rate Heart sounds: S1 normal heart sound present and S2 normal heart sound present Peripheral pulses: Peripheral pulses 2+ throughout GI Inspection: Yes normal to inspection Skin Other: +2 edema, large rope-like varicosities greater than 4 mm CEAP Classification C4 - skin color changes Ep - Etiology Primary As - superficial veins P - reflux General skin exam: dry skin Neuro General: oriented to person, oriented to place and oriented to time Extrem Right lower extremity: full ROM, normal capillary refill and edema Left lower extremity: full ROM, normal capillary refill and edema Psych Mental Status: mental status grossly normal Results Reviewed Results Reviewed: Brief summary of venous insufficiency testing is as follows: right great saphenous vein: Positive right small saphenous vein: negative right accessory vein: none present left great saphenous vein: Positive left small saphenous vein: negative left accessory vein: none present Please note there is no evidence of any venous aneurysms or significant tortuosity Assessment & Plan Assessment & Plan (1) Varicose veins of right lower extremity with inflammation: Code(s): I83.11 - Varicose veins of right lower extremity with inflammation Plan: In short the patient does have venous insufficiency. The concern right now is that she does have a right medial meniscus tear. She is undergoing workup by Orthopedics by Dr. Hansen. I would like this to be evaluated and treated 1st before we treat her venous disease. At the current time we did discuss routine conservative measures including compression elevation and exercise. She will follow up with us in approximately 3 months time with conservative management. (2) Pulmonary embolism: Code(s): I26.99 - Other pulmonary embolism without acute cor pulmonale Plan: Prior history of pulmonary embolism. She is currently being maintained on Eliquis. 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 Would continue conservative measures as above including compression elevation and exercise. Once again she will be following up with us in approximately 3 months time. Coding Level of Care Code Est Pt Level 4 (36074) Diagnoses Varicose veins of right lower extremity with inflammation I83.11 Pulmonary embolism I26.99
== END 2023-04-05 15:06 | disposition home or self-care (01) ==
PROVIDERS: PCP Internal Medicine; Visit Provider Surgery Vascular Surgery
DX: I83.11 Varicose veins of right lower extremity with inflammation (principal); I26.99 Other pulmonary embolism without acute cor pulmonale
CPT/HCPCS: 99214

== ENCOUNTER → 2023-04-05 14:25 | Outpatient (BNVA) | payer OTHER, SELFPAY | PROVIDERS: PCP Internal Medicine; Visit Provider Surgery Vascular Surgery ==

== ENCOUNTER 2023-04-11 13:20 | Outpatient (AMB) | payer OTHER, SELFPAY ==
--- NOTE | 2023-04-11 13:27 | MHC.OFFVIS ---
Intake Vital Signs 04/11/23 13:30 Height 5 ft 2 in Weight 189 lb BMI 34.6 Intake Visit Reasons: ov- Right knee MRI review Intake Note: Sally a 63 year old female who presents today as a new patient with complaints of right knee pain and giving way. The patient states that she 1st injured her knee several years ago. She twisted her knee and had acute onset of pain. Several months ago she reaggravated her pain. She states that most of the pain is along the medial aspect of her knee. She states that her right knee will give out several times per day. She has done physical therapy which aggravated her symptoms. She has also tried Tylenol which gives her minimal relief. She is not able to tolerate anti-inflammatory medicines because she is on Eliquis. She has had injections in the past which gave her minimal relief. Allergies Iodinated Contrast Media [IV CONTRAST] Allergy (Intermediate, Verified 04/11/23 13:29) HIVES amlodipine Allergy (Mild, Verified 04/11/23 13:29) Blister cefaclor [From Ceclor] Allergy (Mild, Verified 04/11/23 13:29) HIVES codeine [Codeine] Allergy (Mild, Verified 04/11/23 13:29) NAUSEA & VOMITING Sulfa (Sulfonamide Antibiotics) [Sulfa (Sulfonamides)] Allergy (Mild, Verified 04/11/23 13:29) NAUSEA & VOMITING, severe vomiting Medication List - Last Reconciled 04/11/23 by Charlie Limon MD apixaban (Eliquis) 5 mg PO BID atorvastatin 10 mg PO DAILY cholecalciferol (vitamin D3) (Vitamin D3) 125 mcg PO DAILY comp.stocking,knee,long,medium As directed diltiazem HCl 240 mg PO DAILY 90 days famotidine (Pepcid) 40 mg PO DAILY fluoxetine 20 mg PO DAILY fluticasone propion-salmeterol 230-21 mcg/actuation (Advair HFA) 2 puffs inhalation Q12H 30 days furosemide 40 mg PO DAILY levalbuterol tartrate 45 mcg/actuation 2 puffs inhalation Q4-6H mepolizumab (Nucala) 100 mg subcut Q4W nortriptyline 10 mg PO DAILY omeprazole 20 mg PO BID tiotropium bromide 2.5 mcg/actuation (Spiriva Respimat) 2 puffs inhalation QAM PFSH Medical History Ankle injuries Surgical History History of cholecystectomy H/O: hysterectomy H/O splenectomy Family History Father CAD (coronary artery disease) Mother Asthma Social History Household Members: Spouse Housing: House Alcohol intake: current Alcohol intake frequency: a few times a month Patient Tobacco Use Status: Never used Tobacco service: No Current occupational status: employed Physical Exam Vital Signs: BMI result Body Mass Index 34.6 Const Other: Well-nourished well-developed very friendly female awake alert and oriented x3 in no acute distress Extrem Other: Bilateral lower extremity examination shows good capillary refill, no skin lesions noted, normal sensation light touch Right knee examination shows a minimal effusion, minimal crepitus with range of motion, tenderness along her medial joint line, positive Alfredo's test Results Reviewed Results Reviewed: MRI of the patient's right knee shows mild diffuse degenerative changes as well as tearing of her medial meniscus and possible tearing of her lateral meniscus, no acute bony abnormalities Assessment & Plan Assessment & Plan (1) Tear of medial meniscus of right knee: Code(s): S83.241A - Other tear of medial meniscus, current injury, right knee, initial encounter Plan: Ms. Esthela Sanders presents with progressively worsening right knee pain and mechanical symptoms due to a tear of her medial meniscus and possible lateral meniscus tearing. I had a lengthy discussion with the patient regarding the treatment options. At this point she has failed continued non operative treatments. The risks and benefits of right knee arthroscopic surgery were discussed at length with the patient. The patient wishes to proceed with surgery. She does understand that she may not get 100% relief of her symptoms depending on the severity of her degenerative changes. Patient will contact my office to pick a surgery date. She does know to stop taking her Eliquis 2-3 days prior to her surgery. The patient will follow-up as instructed. Feel free to call me at any time should questions regarding her orthopedic management arise. I spent 22 minutes in reviewing the patient's records and imaging studies, seeing the patient and documenting in the medical record. Coding Level of Care Code Est Pt Level 2 (60818) Diagnoses Tear of medial meniscus of right knee S83.241A
[2023-04-11 13:30] VITALS: BMI 34.6
== END 2023-04-11 13:46 | disposition home or self-care (01) ==
PROVIDERS: PCP Internal Medicine; Visit Provider Orthopaedic Surgery
DX: S83.241A Other tear of medial meniscus, current injury, right knee, initial encounter (principal)
CPT/HCPCS: 99212

== ENCOUNTER → 2023-04-11 13:20 | Outpatient (BNVA) | payer OTHER, SELFPAY | PROVIDERS: PCP Internal Medicine; Visit Provider Orthopaedic Surgery ==

== ENCOUNTER 2023-05-01 14:40 | Outpatient (AMB) | payer OTHER, SELFPAY ==
--- NOTE | 2023-05-01 14:46 | A.OFFVIS_ITS ---
Intake Vital Signs 05/01/23 14:47 Height 5 ft 2 in Weight 191 lb 12.835 oz BMI 35.1 BP 112/67 Blood Pressure Location Rt brachial Position Sitting Pulse 84 Pulse Source Doppler Pulse Oximetry (%) 98 Oxygen Delivery Method Room Air Intake Visit Reasons: Meniscus Repair - [facility] - 11/ Allergies Iodinated Contrast Media [IV CONTRAST] Allergy (Intermediate, Verified 05/01/23 14:49) HIVES amlodipine Allergy (Mild, Verified 05/01/23 14:49) Blister cefaclor [From Ceclor] Allergy (Mild, Verified 05/01/23 14:49) HIVES codeine [Codeine] Allergy (Mild, Verified 05/01/23 14:49) NAUSEA & VOMITING Sulfa (Sulfonamide Antibiotics) [Sulfa (Sulfonamides)] Allergy (Mild, Verified 05/01/23 14:49) NAUSEA & VOMITING, severe vomiting HPI Meniscus Repair - [facility] - 11 HPI Details 63-year-old lady, lifetime nonsmoker, wi th multiple first-degree relatives with?asthma, 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 After the last office visit patient had to skip several Nucala injections secondary to illness and now her symptoms are suboptimally controlled, though no acute exacerbation. She is restarting Nucala at this time. She continues on Advair, Spiriva, Xopenex. COUNT INCLUDES THE [facility] Medical History Ankle injuries Surgical History History of cholecystectomy H/O: hysterectomy H/O splenectomy Family History Father CAD (coronary artery disease) Mother Asthma Social History Household Members: Spouse Housing: House Alcohol intake: current Alcohol intake frequency: a few times a month Patient Tobacco Use Status: Never used Tobacco service: No Current occupational status: employed Review of Systems Const Denies daytime sleepiness, Denies excessive sweating, Denies fatigue, Denies fever(s), Denies lethargy, Denies malaise, Denies night sweats, Denies snoring and Denies weight loss Eyes Denies blurry vision and Denies itchy eyes ENT Denies nasal congestion, Denies post nasal drip, Denies sinus pain, Denies sinus pressure and Denies other ( Thrush) Card Denies chest pain, Denies pedal edema, Denies dyspnea, Denies orthopnea and Denies paroxysmal nocturnal dyspnea Resp Denies cough, Denies hemoptysis, Denies excessive phlegm production, Denies dyspnea, Denies snoring and Denies wheezing GI Denies abdominal pain and Denies heartburn Skin/Breast Denies rash Neuro Denies memory loss and Denies seizure-like activity Psych Denies abnormal sleep pattern, Denies anxiety and Denies memory loss Endo Denies excessive sweating, Denies fatigue and Denies heat intolerance Ernie/Lymph Denies easy bruising Aller/Immun Denies itchy eyes, Denies seasonal rhinorrhea and Denies wheezing Physical Exam Vital Signs: Last Vital Signs Pulse 84 05/01/23 14:47 BP 112/67 05/01/23 14:47 Pulse Ox 98 05/01/23 14:47 Oxygen Delivery Method Room Air 05/01/23 14:47 BMI result Body Mass Index 35.1 Const General: no acute distress and alert Nutritional Appearance: obese Orientation/consciousness: Other orientation findings ( oriented) HEENT Head: Yes atraumatic Eyes General: appearance normal, both eyes and all related structures Sclerae: sclerae normal EOM: EOMs intact bilaterally Neck Neck: Yes supple Lymphatic: no lymphadenopathy noted Resp Effort & Inspection: normal respiratory effort and no use of accessory muscles Auscultation: clear to auscultation bilaterally Cardio Rate: regular rate Rhythm: regular rhythm Heart sounds: no gallops, no murmurs and no rubs Skin General skin exam: other ( warm) Extrem General: No clubbing, No cyanosis and No edema Assessment & Plan Assessment & Plan (1) Asthma: Code(s): J45.909 - Unspecified asthma, uncomplicated Plan: Patient had to miss several Nucala injections. Now restarting. No acute exacerbations. Continue baseline regimen of Advair, Xopenex, and Spiriva. (2) Environmental allergies: Code(s): Z91.09 - Other allergy status, other than to drugs and biological substances Plan: Expect to improve with restarting Nucala. (3) Encounter for preoperative pulmonary examination: Code(s): Z01.811 - Encounter for preprocedural respiratory examination Plan: At this time patient is at low risk for pulmonary perioperative complications for the proposed arthroscopic meniscus procedure under general anesthesia or monitored anesthesia care. Coding Level of Care Code Est Pt Level 4 (69671) Diagnoses Asthma J45.909 Environmental allergies Z91.09 Encounter for preoperative pulmonary examination Z01.811
[2023-05-01 14:47] VITALS: BP 112/67; PULSE 84; O2SAT 98; BMI 35.1
== END 2023-05-01 15:03 | disposition home or self-care (01) ==
PROVIDERS: PCP Internal Medicine; Visit Provider Internal Medicine Pulmonary Disease
DX: J45.909 Unspecified asthma, uncomplicated (principal); Z91.09 Other allergy status, other than to drugs and biological substances; Z01.811 Encounter for preprocedural respiratory examination
CPT/HCPCS: 99214

== ENCOUNTER → 2023-05-01 14:40 | Outpatient (BNVA) | payer OTHER, SELFPAY | PROVIDERS: PCP Internal Medicine; Visit Provider Internal Medicine Pulmonary Disease ==

== ENCOUNTER 2023-05-01 15:12 | Outpatient (REF) | payer OTHER, SELFPAY | END 2023-05-01 15:13 | disposition home or self-care (01) | LOC: HO.MDS 15:12 | PROVIDERS: Visit Provider Internal Medicine Pulmonary Disease | DX: J45.50 Severe persistent asthma, uncomplicated (principal) | CPT/HCPCS: 96372; J2182 ==

== ENCOUNTER 2023-05-14 11:36 | Outpatient (REF) | payer OTHER, SELFPAY ==
[2023-05-14 13:41] LABS: MANUAL DIFF FLAG NO
[2023-05-14 13:43] LABS: Basophils Absolute Auto 0.1 X10*3/uL (0.0-0.2); Basophils Percent Auto 0.8 % (0-2); Eosinophils Absolute Auto 0.1 X10*3/uL (0.0-0.4); Eosinophils Percent Auto 0.4 % (0-4); Hemoglobin 13.6 g/dl (12.0-16.0); Imm Gran Abs Auto 0.03 X10*3/uL (0.00-0.03); Imm Gran Pct Auto 0.3 % (0.0-0.4); Lymphocytes Absolute Auto 3.8 X10*3/uL (1.2-4.9); Lymphocytes Percent Auto 33.4 % (20-40); Mean Corpuscular Hemoglobin 30.7 pg (27.0-33.0); Mean Corpuscular Volume 90.3 fL (80.0-98.0); Mean Platelet Volume 9.7 fL (9.4-12.3); Monocytes Absolute Auto 0.9 X10*3/uL (0.1-1.2); Monocytes Percent Auto 7.7 % (2-11); Neutrophils Absolute Auto 6.4 x10*3/uL (2.0-8.3); Neutrophils Percent Auto 57.4 % (45-73); Platelet Count 599 X10*3/uL (160-400); Red Blood Count 4.43 X10*6/uL (4.20-5.50); Red Cell Distribution Width 14.1 % (11.0-16.0); White Blood Count 11.2 X10*3/uL (4.8-10.8)
[2023-05-14 13:51] LABS: Estimated Average Glucose 123 mg/dL; Hemoglobin A1c % 5.9 % (<6.0)
[2023-05-14 13:56] LABS: Alanine Aminotransferase 23 U/L (0-31); Albumin Level 4.4 g/dL (3.5-5.0); Alkaline Phosphatase 98 U/L (39-117); Anion Gap 17 (12-20); Aspartate Amino Transferase 19 U/L (5-31); Bilirubin Total 0.3 mg/dL (0.0-1.0); Blood Urea Nitrogen 10 mg/dL (9-16); Calcium 9.6 mg/dL (8.4-10.2); Carbon Dioxide 26 mmol/L (22-29); Chloride 102 mmol/L (96-108); Estimated Glomerular Filt Rate > 60; Glucose Random 119 mg/dL (60-115); Potassium 3.5 mmol/L (3.3-5.1); Sodium 141 mmol/L (135-145); Total Protein 7.9 g/dL (6.5-8.0)
== END 2023-05-14 11:37 | disposition home or self-care (01) ==
LOC: HO.10HDL 11:36
PROVIDERS: Visit Provider Internal Medicine
DX: J45.909 Unspecified asthma, uncomplicated (principal); I10 Essential (primary) hypertension; R73.03 Prediabetes
CPT/HCPCS: 36415; 80053; 83036; 85025

== ENCOUNTER 2023-05-18 09:59 | Day surgery (SDC) | payer OTHER, SELFPAY ==
[2023-05-16 10:37] VITALS: BMI 35.1
--- NOTE | 2023-05-17 09:15 | P.CONAN_ITS ---
Documented by User: Janice Kuhn NP 05/17/23 09:21 HPI - Anesthesia Eval Consult details Narrative: 63yo F for Right Knee Arthroscopy partial meniscectomy,poss lateral meniscectomy Optimized per pulmo Follows Heme: Eliquis for hx PE 03/2022. splenectomy at age 20 and she has chronic thrombocytosis and leukocytosis Follows cardiology: Stable at 01/2023 except venous insufficiency. Referred to vascular. (Vascular states to treat with arthroscopy before any vascular intervention) [facility] Active Problems Active Problems: All Active Problems (Updated 05/16/23 @ 10:36 by Cathryn Huizar RN) Encounter for preoperative pulmonary examination (Acute) Varicose veins of right lower extremity with inflammation (Acute) Tear of medial meniscus of right knee (Acute) Sprain of right knee (Acute) Venous insufficiency (Acute) Pulmonary embolism (Chronic) Lower extremity edema (Acute) Tendinitis of ankle (Acute) Environmental allergies (Acute) Asthma (Acute) Peripheral edema (Acute) Tachycardia (Acute) Crescendo angina (Acute) Hypertension (Acute) Chest pain (Acute) Dyspnea (Acute) Ankle injuries (Acute) Past Medical History Medical History (Updated 05/16/23 @ 10:36 by Cathryn Huizar RN) Anesthesia complication Nephrolithiasis HTN (hypertension) Right leg DVT Elevated cholesterol GERD (gastroesophageal reflux disease) Pulmonary embolism Asthma Shingles COVID Torn meniscus Ankle injuries Family History Family History Father CAD (coronary artery disease) Mother Asthma Surgical History Surgical History (Updated 05/18/23 @ 10:08 by Joselyn Cordero) H/O sinus surgery History of appendectomy History of esophagogastroduodenoscopy (EGD) H/O colonoscopy Hx of lithotripsy History of cholecystectomy H/O: hysterectomy H/O splenectomy History of Problems with Anesthesia: Yes (PONV, long to wake) Social History Social History Household Members: Spouse Housing: House Are you a primary day care provider to a significant other at home: No Do you presently have visiting nurse or other home services: No Alcohol intake: current Alcohol intake frequency: holidays/special occasions only Patient Tobacco Use Status: Never used Tobacco Use of substances other than those prescribed or required for medical reasons: No Have you been hit, kicked, punched, or otherwise hurt by someone within the past year? If so, by whom?: No Are you DNR?: No Advance Directives Information Provided: Yes (as above noted) Advance Directives on File: No Recently lost weight without trying: No Nutrition Risks: No Nutritional Risk Poor oral hygiene: No (broken molar-one) service: No Current occupational status: employed Meds Allergies Allergy/AdvReac Type Severity Reaction Status Date / Time Iodinated Contrast Media Allergy Intermediate HIVES Verified 05/18/23 10:08 [IV CONTRAST] amlodipine Allergy Mild Blister Verified 05/18/23 10:08 cefaclor [From Ceclor] Allergy Mild HIVES Verified 05/18/23 10:08 codeine [Codeine] Allergy Mild NAUSEA & Verified 05/18/23 10:08 VOMITING Sulfa (Sulfonamide Allergy Mild NAUSEA & Verified 05/18/23 10:08 Antibiotics) VOMITING, [Sulfa (Sulfonamides)] severe vomiting Active Medications: Current Medications Clindamycin Phosphate (Cleocin) 900 mg in 50 mls @ 50 mls/hr IV PREOP ONE Stop: 05/18/23 02:38 Home Medications Medication Instructions Recorded Confirmed Last Taken Type atorvastatin 10 mg tablet 10 mg PO DAILY 05/27/20 05/18/23 Unknown History fluoxetine 20 mg capsule 20 mg PO DAILY 05/27/20 05/18/23 Unknown History levalbuterol tartrate 45 2 puff inhalation Q4-6H 05/27/20 05/18/23 Unknown History mcg/actuation aerosol inhaler famotidine 40 mg tablet (Pepcid) 40 mg PO DAILY 03/15/22 05/18/23 Unknown History furosemide 40 mg tablet 40 mg PO DAILY 03/15/22 05/18/23 Unknown History nortriptyline 10 mg capsule 10 mg PO DAILY 03/27/22 05/18/23 Unknown History cholecalciferol (vitamin D3) 125 125 mcg PO DAILY 07/27/22 05/18/23 Unknown History mcg (5,000 unit) tablet (Vitamin D3) omeprazole 20 mg tablet,delayed 20 mg PO BID 07/27/22 05/18/23 05/18/23 History release mepolizumab 100 mg subcutaneous 100 mg subcut Q4W 09/11/22 05/18/23 Unknown History solution (Nucala) Exam Exam Date and Time: May 17, 2023 0915 Height,Weight and Vital Signs: Height 5 ft 2 in Weight 87.09 kg Pertinent Lab Results Pertinent Lab Results: Laboratory Tests 05/14/23 11:44 WBC 11.2 H Hgb 13.6 Hct 40.0 Plt Count 599 H Sodium 141 Potassium 3.5 Chloride 102 Carbon Dioxide 26 BUN 10 Creatinine 0.84 Narrative Narrative: EKG 01/2023 sinus rhythm 89 beats per minute, normal axis, normal ECG, QTC 479 milliseconds ECHO 03/2022 Conclusions: - Normal left ventricular size, thickness, systolic function, and wall motion. The visually estimated ejection fraction is between 55-60%. Diastolic function is normal for age. - Normal right ventricular cavity size and systolic function. Assessment and Plan Assessment Anesthesia Assessment: Chart Reviewed Final Anesthetic Review History of Problems with Anesthesia: Yes (PONV, long to wake) Documented by User: Zacarias Jamison MD 05/18/23 10:24 [facility] Past Medical History Medical History (Updated 05/16/23 @ 10:36 by Cathryn uHizar RN) Anesthesia complication Nephrolithiasis HTN (hypertension) Right leg DVT Elevated cholesterol GERD (gastroesophageal reflux disease) Pulmonary embolism Asthma Shingles COVID Torn meniscus Ankle injuries Family History Family History Father CAD (coronary artery disease) Mother Asthma Surgical History Surgical History (Updated 05/18/23 @ 10:08 by Joselyn Cordero) H/O sinus surgery History of appendectomy History of esophagogastroduodenoscopy (EGD) H/O colonoscopy Hx of lithotripsy History of cholecystectomy H/O: hysterectomy H/O splenectomy Social History Social History Household Members: Spouse Housing: House Are you a primary day care provider to a significant other at home: No Do you presently have visiting nurse or other home services: No Alcohol intake: current Alcohol intake frequency: holidays/special occasions only Patient Tobacco Use Status: Never used Tobacco Use of substances other than those prescribed or required for medical reasons: No Have you been hit, kicked, punched, or otherwise hurt by someone within the past year? If so, by whom?: No Are you DNR?: No Advance Directives Information Provided: Yes (as above noted) Advance Directives on File: No Recently lost weight without trying: No Nutrition Risks: No Nutritional Risk Poor oral hygiene: No (broken molar-one) service: No Current occupational status: employed Meds Allergies Allergy/AdvReac Type Severity Reaction Status Date / Time Iodinated Contrast Media Allergy Intermediate HIVES Verified 05/18/23 10:08 [IV CONTRAST] amlodipine Allergy Mild Blister Verified 05/18/23 10:08 cefaclor [From Ceclor] Allergy Mild HIVES Verified 05/18/23 10:08 codeine [Codeine] Allergy Mild NAUSEA & Verified 05/18/23 10:08 VOMITING Sulfa (Sulfonamide Allergy Mild NAUSEA & Verified 05/18/23 10:08 Antibiotics) VOMITING, [Sulfa (Sulfonamides)] severe vomiting Home Medications Medication Instructions Recorded Confirmed Last Taken Type atorvastatin 10 mg tablet 10 mg PO DAILY 05/27/20 05/18/23 Unknown History fluoxetine 20 mg capsule 20 mg PO DAILY 05/27/20 05/18/23 Unknown History levalbuterol tartrate 45 2 puff inhalation Q4-6H 05/27/20 05/18/23 Unknown History mcg/actuation aerosol inhaler famotidine 40 mg tablet (Pepcid) 40 mg PO DAILY 03/15/22 05/18/23 Unknown History furosemide 40 mg tablet 40 mg PO DAILY 03/15/22 05/18/23 Unknown History nortriptyline 10 mg capsule 10 mg PO DAILY 03/27/22 05/18/23 Unknown History cholecalciferol (vitamin D3) 125 125 mcg PO DAILY 07/27/22 05/18/23 Unknown History mcg (5,000 unit) tablet (Vitamin D3) omeprazole 20 mg tablet,delayed 20 mg PO BID 07/27/22 05/18/23 05/18/23 History release mepolizumab 100 mg subcutaneous 100 mg subcut Q4W 09/11/22 05/18/23 Unknown History solution (Nucala) Exam Airway Mallampati Class: II TM Dist: >3cm Neck ROM: Limited Heart: rrr Lungs: cta Assessment and Plan Assessment Anesthesia Assessment: Anesthesia Plan Discussed Final Anesthetic Review NPO: Yes ASA Class: III Final Preanesthetic Review: No Changes in Pt Med Stat, Meds/Allgs Chart Reviewed, Consent Obtained/Reviewed and Anes Risks/Benef Reviewed Patient Risk: Intermediate Procedure Risk: Intermediate Anesthetic Plan Anesthetic Plan: GA and Agree w/ Assess. and Plan Disposition: Standard PACU
[2023-05-18] VITALS (10 sets, daily range): BP systolic 115–153; BP diastolic 59–78; PULSE 80–94; RESP 12–20; TEMP 36.6–37.1; O2SAT 95–98
--- NOTE | 2023-05-18 09:07 | HP_ITS ---
DATE OF SERVICE: 05/18/2023 HISTORY OF PRESENT ILLNESS: The patient is a 63-year-old female, scheduled for arthroscopy with Dr. Limon on May 18 and it is for the right knee. The patient was seen in the office on May 14 for preop evaluation. The patient feels stable. She has chronic asthma problems. ALLERGIES: SHE HAS NO REPORTED ALLERGIES TO MEDICINES.??? She is presently in no distress. PAST MEDICAL HISTORY: Significant for asthma; hypertension; hay fever; history of pulmonary embolus, on Eliquis; elevated cholesterol; gastroesophageal reflux disease; obstructive sleep apnea; osteopenia; kidney stones; history of nasal polyps. REVIEW OF SYSTEMS: No fevers, chills, or sweats. Weight is stable. No complaints of tension headaches, but does get sinus headaches. No voice changes. Some peripheral edema. No palpitations or chest pain. She does have chronic dyspnea, wheezing, and coughing. She also has gastroesophageal reflux disease without abdominal pain, diarrhea, or constipation. No urinary complaints. Joint pains in her knees and back. No speech, confusion, or memory issues. Sleep and appetite are unchanged. She does have seasonal allergies. No skin complaints. FAMILY HISTORY: Father of an ID. Mother also has asthma, hypertension, arthritis. She has 2 brothers in stable health. PRESENT MEDICATION LIST: Lasix 40 mg a day, Prilosec 20 mg p.o. b.i.d., Spiriva 1 puff daily, diltiazem CD 240, Advair 250/50 two puffs twice a day, Xopenex 2 puffs every 4 hours as needed, Lipitor 10 mg a day, vitamin D 1000 to 2000 units daily, fluoxetine 20 mg a day, nortriptyline 10 mg a day. PHYSICAL EXAMINATION: GENERAL: She is awake and alert. She is in no acute distress. Overweight. VITAL SIGNS: 98.6 is the temperature, pulse 92, respirations 12 to 14, blood pressure 124/86, oxygen saturation 98% on room air. Weight is 190. She is 5 feet 1 inch. HEENT: Clear. NECK: Supple. No lymph nodes, bruits, or masses. HEART: Sounds S1 and S2. LUNGS: Clear, but distant. Occasional wheezes. ABDOMEN: Soft and nontender. EXTREMITIES: 1+ edema, trace to 1+ pulses. NEUROLOGIC: Cranial nerves II through XII are intact. She moves all extremities. She is wearing a brace on the right knee. ASSESSMENT AND PLAN: She had a cardiogram done in the office, which shows sinus rhythm, no ischemic changes, regular rate. She is stable for the proposed procedure. She is advised to stop the Xarelto 48 hours before the procedure, so nothing to take after the , and resume the day after the surgery. I will be available if there are any issues or questions about medications. MD YULISSA Fountain/CRISELDA / [phone]
[2023-05-18] MEDS: Scopolamine 1.5 MG PATCH.TD.3 TRANSDERMA (10:25)
--- NOTE | 2023-05-18 13:12 | P.BOP_ITS ---
Brief Operative Note Date of Service: 05/18/23 Pre-op diagnosis: Right knee medial meniscus tear, right knee degenerative joint disease, right knee plica syndrome Post-op diagnosis: same Procedure: Right knee diagnostic arthroscopy with right knee arthroscopic partial medial meniscectomy, right knee arthroscopic chondroplasty of the undersurface of the patella, right knee arthroscopic plica excision Implants: none Surgeon: Charlie Limon MD Anesthesia: GLMA Was an Air Cargo Specialist Supervisor used for this Procedure?: No Estimated blood loss (mL): 10 Pathology: none sent Condition: stable Disposition: PACU
--- NOTE | 2023-05-18 13:13 | P.OP_ITS ---
Operative Note Operative Note Date of Service: 05/18/23 Narrative: After the patient was identified as Sally Sanders and their right knee was initialed by myself they were brought to the operating room where general anesthesia was induced by the anesthesiologist in routine fashion. Because of the patient's allergy to cephalosporins she was given 900 mg of IV clindamycin for infection prophylaxis. A formal time-out was completed. The patient's right lower extremity was prepped and draped in sterile fashion. Marcaine with epinephrine was injected into the planned incision sites as well as their left knee joint. A # 11 scalpel blade was used to make an anterolateral portal 1 cm proximal to the joint line and 1 cm lateral to the patellar tendon. Blunt trocar technique was used into the suprapatellar pouch with the knee in extension. Diagnostic arthroscopy showed multiple bands of thickened plica which would be excised at the end of the procedure. There were no loose bodies or abnormalities found in either the medial or lateral gutters. There were diffuse grades 2 degenerative changes of the undersurface of the patella as well as grade 1 degenerative changes of the trochlear groove. The patient's knee was flexed to 45 degrees and a valgus force was placed upon it. The medial compartment was entered. An anteromedial portal was made 1 cm proximal to the joint line and 1 cm medial to the patellar tendon. Probing of the medial meniscus showed a radial tear of the anterior horn. A partial medial meniscectomy was performed using the arthroscopic shaver. Following the partial meniscectomy the remainder of the meniscus tissue was stable. There were diff use grade 1 degenerative changes of the medial femoral condyle as well as diffuse grade 1 degenerative changes of the medial tibial plateau. The articular surface of the medial femoral condyle was made smooth using the arthroscopic shaver. The articular surface of the medial tibial plateau was already smooth so no chondroplasty was indicated. The patient's knee was then placed into a neutral position. There was no injury to the anterior cruciate ligament. The patient's knee was then placed into the figure of 4 position and the lateral compartment was entered. There were minimal degenerative changes of the lateral femoral condyle and lateral tibial plateau. There was no evidence of lateral meniscus tearing. The patient's knee was once again brought into extension and the suprapatellar pouch was entered. The arthroscopic shaver and the ArthroCare Wand were used to excise the thickened bands of plica. The undersurface of the patella was then made smooth using the arthroscopic shaver. The articular surface of the trochlear groove was already smooth so no chondroplasty was indicated. The knee joint was irrigated and then drained. All arthroscopic instruments were removed. The 2 portals were closed with 3-0 nylon interrupted suture. The knee joint was injected with Marcaine. Dry sterile dressing and Stefan bandages were placed over the patient's knee. The patient was woken and expand the operating room. They were transferred to the recovery room in stable condition.
[2023-05-18] MEDS: HYDROmorphone HCl 0.5 MG/0.5 ML SYRINGE 0.25 MG IVPUSH ×2 (13:19→13:24)
--- NOTE | 2023-05-18 13:43 | ECG_ITS ---
Test Reason : chest pain Blood Pressure : / mmHG Vent. Rate : 082 BPM Atrial Rate : 082 BPM P-R Int : 172 ms QRS Dur : 086 ms QT Int : 416 ms P-R-T Axes : 059 054 037 degrees QTc Int : 486 ms Normal sinus rhythm Normal ECG When compared with ECG of 24-JUL-2011 01:32, No significant change was found Referred By: Hero Son Electronically Signed By:LEX MONET MD
== END 2023-05-18 14:55 | disposition home or self-care (01) ==
PROVIDERS: PCP Internal Medicine; Visit Provider Orthopaedic Surgery
PROC: (CPT 29870; principal; 2023-05-18 11:40)
DX: S83.241A Other tear of medial meniscus, current injury, right knee, initial encounter (principal); M17.11 Unilateral primary osteoarthritis, right knee; M67.51 Plica syndrome, right knee; X50.1XXA Overexertion from prolonged static or awkward postures, initial encounter; Y93.9 Activity, unspecified; Y92.9 Unspecified place or not applicable; Y99.8 Other external cause status; J45.50 Severe persistent asthma, uncomplicated; I10 Essential (primary) hypertension; E78.00 Pure hypercholesterolemia, unspecified; I87.2 Venous insufficiency (chronic) (peripheral); R00.0 Tachycardia, unspecified; R60.9 Edema, unspecified; Z79.01 Long term (current) use of anticoagulants; Z79.51 Long term (current) use of inhaled steroids; Z79.899 Other long term (current) drug therapy; Z88.1 Allergy status to other antibiotic agents; Z91.09 Other allergy status, other than to drugs and biological substances; Z88.2 Allergy status to sulfonamides; Z88.5 Allergy status to narcotic agent; Z88.8 Allergy status to other drugs, medicaments and biological substances; Z91.040 Latex allergy status; Z98.890 Other specified postprocedural states
CPT/HCPCS: 29881; 93005; J0131; J0171; J0736; J1100; J1170; J1885; J2405; J2795; J3010

== ENCOUNTER → 2023-05-18 09:59 | Outpatient (BNV) | payer OTHER, SELFPAY | PROVIDERS: PCP Internal Medicine; Visit Provider Orthopaedic Surgery | DX: S83.231A Complex tear of medial meniscus, current injury, right knee, initial encounter (principal) | CPT/HCPCS: 29881 ==

== ENCOUNTER 2023-06-01 10:14 | Outpatient (AMB) | payer OTHER, SELFPAY ==
--- NOTE | 2023-06-01 10:18 | MHC.OFFVIS ---
Intake Intake Visit Reasons: PO-Rt Knee 05/18 Intake Note: Sally a 63 year old female presents today for a post operative RT knee , DOS 05/18/23 Patient reports improvement in pain since her surgery. States currently taking azithromycin for a sinus infection. Allergies Iodinated Contrast Media [IV CONTRAST] Allergy (Intermediate, Verified 06/01/23 10:28) HIVES amlodipine Allergy (Mild, Verified 06/01/23 10:28) Blister cefaclor [From Ceclor] Allergy (Mild, Verified 06/01/23 10:28) HIVES codeine [Codeine] Allergy (Mild, Verified 06/01/23 10:28) NAUSEA & VOMITING Sulfa (Sulfonamide Antibiotics) [Sulfa (Sulfonamides)] Allergy (Mild, Verified 06/01/23 10:28) NAUSEA & VOMITING, severe vomiting HPI PO-Rt Knee 05/18 HPI Details 63 yo female returns to the office today s/p Right knee arthroscopy with partial medial meniscectomy, right knee arthroscopic chondroplasty of the undersurface of the patella, right knee arthroscopic plica excision [facility] Medical History (Updated 06/01/23 @ 12:24 by Juan Jackson PA-C) SUZANNE on CPAP Anesthesia complication Nephrolithiasis HTN (hypertension) Right leg DVT Elevated cholesterol GERD (gastroesophageal reflux disease) Pulmonary embolism Asthma Shingles COVID Torn meniscus Ankle injuries Surgical History H/O sinus surgery History of appendectomy History of esophagogastroduodenoscopy (EGD) H/O colonoscopy Hx of lithotripsy History of cholecystectomy H/O: hysterectomy H/O splenectomy Family History Father CAD (coronary artery disease) Mother Asthma Social History Household Members: Spouse Housing: House Are you a primary campground caretaker to a significant other at home: No Do you presently have visiting nurse or other home services: No Alcohol intake: current Alcohol intake frequency: holidays/special occasions only Patient Tobacco Use Status: Never used Tobacco service: No Current occupational status: employed Review of Systems Const All systems reviewed & are unremarkable except as noted in HPI and below Physical Exam Extrem Other: Right knee incision clean, dry and intact. No erythema or drainage. ROM 5-95 deg. Calf supple non tender, NVI. Results Reviewed Results Reviewed: Date of Service: 05/18/23 Pre-op diagnosis: Right knee medial meniscus tear, right knee degenerative joint disease, right knee plica syndrome Post-op diagnosis: same Procedure: Right knee diagnostic arthroscopy with right knee arthroscopic partial medial meniscectomy, right knee arthroscopic chondroplasty of the undersurface of the patella, right knee arthroscopic plica excision Implants: none Surgeon: Charlie Limon MD Assessment & Plan Assessment & Plan (1) Tear of medial meniscus of right knee: Code(s): S83.241A - Other tear of medial meniscus, current injury, right knee, initial encounter Qualifiers: Tear current or old: current Encounter type: subsequent encounter Meniscus tear of knee type: other type Qualified Code(s): S83.241D - Other tear of medial meniscus, current injury, right knee, subsequent encounter Plan Sutures removed, steri strips applied. She will work on ROM and quad strength exercises at home. I did send her a rx for celebrex to help with her swelling. She will see us back in [address] Limon, sooner if needed. Medications: New celecoxib (Celebrex) 200 mg PO BID 30 days 60 caps 3RF Coding Level of Care Code Global (43174) Diagnoses Other tear of medial meniscus of right knee as current injury, subsequent encounter S83.241D Tear current or old: current Encounter type: subsequent encounter Meniscus tear of knee type: other type
== END 2023-06-01 10:54 | disposition home or self-care (01) ==
PROVIDERS: PCP Internal Medicine; Visit Provider Physician Assistant
DX: S83.241D Other tear of medial meniscus, current injury, right knee, subsequent encounter (principal)
CPT/HCPCS: 99024

== ENCOUNTER → 2023-06-01 10:14 | Outpatient (BNVA) | payer OTHER, SELFPAY | PROVIDERS: PCP Internal Medicine; Visit Provider Physician Assistant ==

== ENCOUNTER 2023-06-28 14:24 | Outpatient (AMB) | payer OTHER, SELFPAY ==
--- NOTE | 2023-06-28 14:30 | A.OFFVIS_ITS ---
Intake Vital Signs 06/28/23 14:39 Height 5 ft 2 in Weight 190 lb BMI 34.7 Intake Visit Reasons: PO-Rt Knee 05/18 DR Quezada Note: Sally is a 63 year old female who presents today for a post operative appointment s/p Right Knee Arthroscopy 05/18/2023. Patient reports that she is having residual swelling that is not going down & she is unable to take anti- inflammatories. She is due to see Dr. Casas from vascular surgery over the next few weeks. She denies any fevers or chills. She continues to stretch her knee as much as possible. Allergies Iodinated Contrast Media [IV CONTRAST] Allergy (Intermediate, Verified 06/01/23 10:28) HIVES amlodipine Allergy (Mild, Verified 06/01/23 10:28) Blister cefaclor [From Ceclor] Allergy (Mild, Verified 06/01/23 10:28) HIVES codeine [Codeine] Allergy (Mild, Verified 06/01/23 10:28) NAUSEA & VOMITING Sulfa (Sulfonamide Antibiotics) [Sulfa (Sulfonamides)] Allergy (Mild, Verified 06/01/23 10:28) NAUSEA & VOMITING, severe vomiting Medication List - Last Reconciled 06/29/23 by Charlie Limon MD apixaban (Eliquis) 5 mg PO BID atorvastatin 10 mg PO DAILY celecoxib (Celebrex) 200 mg PO BID 30 days cholecalciferol (vitamin D3) (Vitamin D3) 125 mcg PO DAILY comp.stocking,knee,long,medium As directed diltiazem HCl 240 mg PO DAILY 90 days famotidine (Pepcid) 40 mg PO DAILY fluoxetine 20 mg PO DAILY fluticasone propion-salmeterol 230-21 mcg/actuation (Advair HFA) 2 puffs inhalation Q12H 30 days furosemide 40 mg PO DAILY hydromorphone (Dilaudid) 2 mg PO Q6H PRN levalbuterol tartrate 45 mcg/actuation 2 puffs inhalation Q4-6H mepolizumab (Nucala) 100 mg subcut Q4W nortriptyline 10 mg PO DAILY omeprazole 20 mg PO BID tiotropium bromide 2.5 mcg/actuation (Spiriva Respimat) 2 puffs inhalation QAM PFSH Medical History (Updated 06/29/23 @ 07:56 by Charlie Limon MD) SUZANNE on CPAP Anesthesia complication Nephrolithiasis HTN (hypertension) Right leg DVT Elevated cholesterol GERD (gastroesophageal reflux disease) Pulmonary embolism Asthma Shingles COVID Torn meniscus Ankle injuries Surgical History H/O sinus surgery History of appendectomy History of esophagogastroduodenoscopy (EGD) H/O colonoscopy Hx of lithotripsy History of cholecystectomy H/O: hysterectomy H/O splenectomy Family History Father CAD (coronary artery disease) Mother Asthma Social History Household Members: Spouse Housing: House Are you a primary acute care clinical nurse specialist to a significant other at home: No Do you presently have visiting nurse or other home services: No Alcohol intake: current Alcohol intake frequency: holidays/special occasions only Comment: all counts correct Patient Tobacco Use Status: Never used Tobacco service: No Current occupational status: employed Physical Exam Vital Signs: BMI result Body Mass Index 34.7 Extrem Other: Right knee examination shows that the surgical incisions are well healed, mild discomfort with range of motion, minimal crepitus with range of motion, diffuse edema in her right lower leg, no skin lesions, no signs of infection Assessment & Plan Assessment & Plan (1) Right knee pain: Code(s): M25.561 - Pain in right knee Plan Ms. Esthela Sanders continues to do well after undergoing right knee arthroscopic surgery on 05/18/2023. She will continue with her home stretching program. I discussed with the patient the fact that her discomfort should continue to improve over the next few months. The patient will follow up with Dr. Casas as scheduled. From my standpoint the patient is cleared to undergo any indicated vascular procedures. This should not affect the outcome of her knee arthroscopy. I will see the patient back in 2-3 months time for repeat clinical examination. Feel free to call me at any time should questions regarding her orthopedic management arise. Coding Level of Care Code Global (50947) Diagnoses Right knee pain M25.561
[2023-06-28 14:39] VITALS: BMI 34.7
== END 2023-06-28 14:52 | disposition home or self-care (01) ==
PROVIDERS: PCP Internal Medicine; Visit Provider Orthopaedic Surgery
DX: M25.561 Pain in right knee (principal)
CPT/HCPCS: 99024

== ENCOUNTER → 2023-06-28 14:24 | Outpatient (BNVA) | payer OTHER, SELFPAY | PROVIDERS: PCP Internal Medicine; Visit Provider Orthopaedic Surgery ==

== ENCOUNTER 2023-07-03 14:57 | Outpatient (AMB) | payer OTHER, SELFPAY ==
[2023-07-03 15:09] VITALS: BMI 34.7
--- NOTE | 2023-07-03 15:09 | MHC.OFFVIS ---
Intake Vital Signs 07/03/23 15:09 Height 5 ft 2 in Weight 190 lb BMI 34.7 Intake Visit Reasons: 3 month leg check Intake Note: 3 mo leg check s/p Right Meniscus tear surgery 05/18/23, w/ Dr. Goel and also has Hx of Right LE dvt which she has been on Eliquis for 1 yr. Pt still has LE swelling in both legs. gave clearance for GSV ablation as he hopes it will help with edema which pt has had for many years but is also worsened by recent knee surgery. Accompanied by: Self / Same As Patient Allergies Iodinated Contrast Media [IV CONTRAST] Allergy (Intermediate, Verified 07/03/23 15:22) HIVES amlodipine Allergy (Mild, Verified 07/03/23 15:22) Blister cefaclor [From Ceclor] Allergy (Mild, Verified 07/03/23 15:22) HIVES codeine [Codeine] Allergy (Mild, Verified 07/03/23 15:22) NAUSEA & VOMITING Sulfa (Sulfonamide Antibiotics) [Sulfa (Sulfonamides)] Allergy (Mild, Verified 07/03/23 15:22) NAUSEA & VOMITING, severe vomiting HPI 3 month leg check HPI Details very pleasant 63-year-old female presents for follow-up evaluation regarding venous insufficiency. She has safely undergone right knee arthroscopic surgery on 05/18/2023. She has residual swelling. Unfortunately she is unable to take anti-inflammatories due to being on a [place] act. She reports that her leg is doing somewhat better. She is still concerned about the swelling in bilateral lower extremities. She now presents for routine follow-up. [facility] Medical History SUZANNE on CPAP Anesthesia complication Nephrolithiasis HTN (hypertension) Right leg DVT Elevated cholesterol GERD (gastroesophageal reflux disease) Pulmonary embolism Asthma Shingles COVID Torn meniscus Ankle injuries Surgical History H/O sinus surgery History of appendectomy History of esophagogastroduodenoscopy (EGD) H/O colonoscopy Hx of lithotripsy History of cholecystectomy H/O: hysterectomy H/O splenectomy Family History Father CAD (coronary artery disease) Mother Asthma Social History Household Members: Spouse Housing: House Are you a primary doggy daycare activities director to a significant other at home: No Do you presently have visiting nurse or other home services: No Alcohol intake: current Alcohol intake frequency: holidays/special occasions only Comment: all counts correct Patient Tobacco Use Status: Never used Tobacco service: No Current occupational status: employed Review of Systems Const Reports as per HPI ENT Reports no additional complaints Card Denies chest pain, Denies chest pain at rest and Denies chest pain with activity Resp Denies chest congestion and Denies cough GI Reports no additional complaints Musc Details: pain over varicosities, aching of lower extremities, swelling, cramping, heaviness and tiredness, itching Denies abnormal gait Skin/Breast Reports pruritus and Denies wounds Neuro Reports no additional complaints and Denies abnormal gait Psych Denies no additional complaints Physical Exam Vital Signs: BMI result Body Mass Index 34.7 Const General: cooperative, healthy appearing and comfortable Orientation/consciousness: oriented to person, oriented to place and oriented to time Neck Carotids: no bruits Chest Chest palpation & inspection: normal inspection of the chest and normal palpation of entire chest wall Resp Effort & Inspection: normal respiratory effort and able to speak in complete sentences Cardio Rate: regular rate Heart sounds: S1 normal heart sound present and S2 normal heart sound present Peripheral pulses: Peripheral pulses 2+ throughout GI Inspection: Yes normal to inspection Skin Other: +2 edema CEAP Classification C4 - skin color changes Ep - Etiology Primary As - superficial veins P - reflux General skin exam: dry skin Neuro General: oriented to person, oriented to place and oriented to time Extrem Right lower extremity: full ROM, normal capillary refill and edema Left lower extremity: full ROM, normal capillary refill and edema Psych Mental Status: mental status grossly normal Results Reviewed Results Reviewed: Brief summary of venous insufficiency testing is as follows: right great saphenous vein: Positive right small saphenous vein: negative right accessory vein: none present left great saphenous vein: positive left small saphenous vein: negative left accessory vein: none present Please note there is no evidence of any venous aneurysms or significant tortuosity Assessment & Plan Assessment & Plan (1) Varicose veins of right lower extremity with inflammation: Code(s): I83.11 - Varicose veins of right lower extremity with inflammation Plan: This patient has varicose veins with inflammation. They continue to be a source of discomfort for the patient. The patient has tried conservative treatment with compression, leg elevation and exercise program for over 3 months time. They have been compliant with all treatment. This has provided minimal relief for the patient. I do not anticipate this course of treatment will alter the underlying etiology. The patient has been scheduled for lower extremity venous treatment inclusive of --- right great saphenous vein radiofrequency ablation. Risks, benefits, and complications of this procedure has been discussed in detail with the patient including but not limited to bleeding, infection, and the development of a DVT. The patient has demonstrated a clear understanding and has consented. We will schedule the patient as soon as possible. Thank you for allowing us to participate in this patient's care. If there are any questions or concerns please do not hesitate to contact us. Coding Level of Care Code Est Pt Level 4 (06180) Diagnoses Varicose veins of right lower extremity with inflammation I83.11
== END 2023-07-03 15:52 | disposition home or self-care (01) ==
PROVIDERS: PCP Internal Medicine; Visit Provider Surgery Vascular Surgery
DX: I83.11 Varicose veins of right lower extremity with inflammation (principal); Z09 Encounter for follow-up examination after completed treatment for conditions other than malignant neoplasm
CPT/HCPCS: 99213

== ENCOUNTER → 2023-07-03 14:57 | Outpatient (BNVA) | payer OTHER, SELFPAY | PROVIDERS: PCP Internal Medicine; Visit Provider Surgery Vascular Surgery ==

== ENCOUNTER 2023-07-27 08:22 | Outpatient (AMB) | payer OTHER, SELFPAY ==
--- NOTE | 2023-07-27 08:33 | A.OFFVIS_ITS ---
Intake Vital Signs 07/27/23 08:34 Height 5 ft 2 in Weight 190 lb BMI 34.7 Intake Visit Reasons: Right GSV RFA Accompanied by: Self / Same As Patient Allergies Iodinated Contrast Media [IV CONTRAST] Allergy (Intermediate, Verified 07/27/23 08:34) HIVES amlodipine Allergy (Mild, Verified 07/27/23 08:34) Blister cefaclor [From Ceclor] Allergy (Mild, Verified 07/27/23 08:34) HIVES codeine [Codeine] Allergy (Mild, Verified 07/27/23 08:34) NAUSEA & VOMITING Sulfa (Sulfonamide Antibiotics) [Sulfa (Sulfonamides)] Allergy (Mild, Verified 07/27/23 08:34) NAUSEA & VOMITING, severe vomiting PFSH Medical History SUZANNE on CPAP Anesthesia complication Nephrolithiasis HTN (hypertension) Right leg DVT Elevated cholesterol GERD (gastroesophageal reflux disease) Pulmonary embolism Asthma Shingles COVID Torn meniscus Ankle injuries Surgical History H/O sinus surgery History of appendectomy History of esophagogastroduodenoscopy (EGD) H/O colonoscopy Hx of lithotripsy History of cholecystectomy H/O: hysterectomy H/O splenectomy Family History Father CAD (coronary artery disease) Mother Asthma Social History Household Members: Spouse Housing: House Are you a primary foster care social worker to a significant other at home: No Do you presently have visiting nurse or other home services: No Alcohol intake: current Alcohol intake frequency: holidays/special occasions only Comment: all counts correct Patient Tobacco Use Status: Never used Tobacco service: No Current occupational status: employed Physical Exam Vital Signs: BMI result Body Mass Index 34.7 Office Procedures Vascular Office Procedure Details Details: Diagnosis: Varicose veins with inflammation of right leg Procedure: Endovenous radiofrequency ablation of the right great saphenous vein(s) of the lower extremity. Anesthesia: Local infiltration 5 cc, Tumescent 250 cc. Estimated Blood Loss: Minimal Specimen: Varicose veins The patient was transferred to the procedure suite and the insufficient saphenous vein was mapped by ultrasound and diagrammed on the overlying skin. The depth and diameter of the vein(s) to be treated was documented. The varicose tributary veins and suitable access sites were identified and mapped as well. The patient was then positioned supine on the procedure table. The affected limb was prepped and draped in the usual sterile fashion. The RF catheter was placed on the sterile field, flushed and wiped down, prepared, and connected by a sterile cable. The patient was placed in reverse- Trendelenburg position and local anesthesia was instilled in the skin overlying the access site. A skin incision was made overlying the identified and mapped great saphenous vein entry site. The vein was accessed using ultrasound guidance and the Seldinger technique, a guide wire was introduced through the needle, which was then exchanged over the guide wire for a 6F sheath, which was secured in place. The guide wire was removed and the sheath was flushed. The RF catheter was placed into the vein through the sheath and preferentially, imaging was used to place the catheter tip just inferior to the superficial epigastric vein to preserve normal physiological flow in that vein. Additionally, it was confirmed by ultrasound guidance that the catheter tip was also placed a minimum of 1.5cm distal to the saphenofemoral junction. After the RF catheter position was verified by ultrasound, tumescent anesthesia was infiltrated, under ultrasound guidance, precisely into the perivenous compartment along the entire length of vein from the entry site to the saphenofemoral junction until a halo of fluid was noted around the vein. The patient was then placed in Trendelenburg position to further exsanguinate the superficial venous system. After RF catheter position was again confirmed with ultrasound imaging, and under direct external compression along the length of the heating element, RF energy was applied. The vein was segmentally ablated by heating a 8 cm segment and then indexing the catheter forward by 7.5 cm until the treatment length is completed. Device temperature was maintained at 120 plus or minus 5 degrees C with an initial power level of 40W dropping to below 20W for each treatment. Total vein length treated 32 cm Total cycles of RF 6. Repeat ultrasound of the saphenous vein was performed, confirming successful treatment. The catheter and sheath were withdrawn and hemostasis established wit h direct pressure. After assuring hemostasis, the skin incision over the saphenous vein was closed with a bandage and a compression wrap, and/ or graduated compression stocking was applied from the level of the foot to the most proximal level of the thigh. 00309 - Endovenous RF, 1st Vein All charges added?: Procedure code (CPT) selection complete Assessment & Plan Assessment & Plan (1) Varicose veins of right lower extremity with inflammation: Code(s): I83.11 - Varicose veins of right lower extremity with inflammation Plan: See op note Coding Level of Care Code Procedure Only Diagnoses Varicose veins of right lower extremity with inflammation I83.11 CPT Codes Details - Vascular 1: 56069 - Endovenous RF, 1st Vein ([id number])
[2023-07-27 08:34] VITALS: BMI 34.7
== END 2023-07-27 11:20 | disposition home or self-care (01) ==
PROVIDERS: PCP Internal Medicine; Visit Provider Surgery Vascular Surgery
DX: I83.11 Varicose veins of right lower extremity with inflammation (principal)
CPT/HCPCS: 36475

== ENCOUNTER → 2023-07-27 08:22 | Outpatient (BNVA) | payer OTHER, SELFPAY | PROVIDERS: PCP Internal Medicine; Visit Provider Surgery Vascular Surgery | DX: I83.11 Varicose veins of right lower extremity with inflammation (principal) | CPT/HCPCS: 36475 ==

== ENCOUNTER 2023-07-30 11:22 | Outpatient (REF) | payer OTHER, SELFPAY ==
--- NOTE | ~2023-07-30 | US_ITS ---
EXAMINATION: US VENOUS ULTRASOUND WITH DOPPLER LOWER EXTREMITY, RIGHT CLINICAL INFORMATION: Leg pain. Status post venous field 07/27/2023. Follow-up 07/30/2023. COMPARISON: None available. TECHNIQUE: Ultrasound of the deep veins is performed from the hip to the calf with compression sonography and color and pulse Doppler assessment. Spectral analysis with color-flow imaging is performed. FINDINGS: There is normal venous compression and respiratory variation and augmented flow. The visualized common femoral vein, superficial femoral vein, profunda femoral vein, popliteal vein, and the trifurcation region shows no evidence of deep venous thrombosis. Approximately 7.4 cm from the superficial femoral venous junction there is a thrombus seen in the right greater saphenous vein post vena seal procedure There is no significant popliteal fossa cyst. If the patient's symptoms persist, followup ultrasound in 5 days 7 days might be of value to exclude proximal propagation from a non-visualized calf vein. US/US venous duplex LE RT IMPRESSION: No DVT demonstrated in the right lower extremity. Thrombus visualized in the greater saphenous vein 7.4 cm from the superficial femoral vein with no flow seen. Patient is status post venaseal procedure
== END 2023-07-30 11:23 | disposition home or self-care (01) ==
LOC: HO.HMGCX 11:22
PROVIDERS: PCP Internal Medicine; Visit Provider Surgery Vascular Surgery
DX: M79.604 Pain in right leg (principal)
CPT/HCPCS: 93971

== ENCOUNTER 2023-08-09 14:55 | Outpatient (AMB) | payer OTHER, SELFPAY ==
--- NOTE | 2023-08-09 14:56 | A.OFFVIS_ITS ---
Intake Vital Signs 08/09/23 14:57 Height 5 ft 2 in Weight 190 lb BMI 34.7 BP 136/84 Blood Pressure Location Lt brachial Position Sitting Pulse 101 H Pulse Source Pulse Oximeter Pulse Oximetry (%) 97 Oxygen Delivery Method Room Air Intake Visit Reasons: 2 week follow up Right GSV RFA 07/27/23 Intake Note: Pt presents to the office today for a 2 week follow up right GSV FA 07/27/23. Pt states she is feeling well denies any pain or tenderness where the procedure was done. Allergies Iodinated Contrast Media [IV CONTRAST] Allergy (Intermediate, Verified 08/09/23 14:59) HIVES amlodipine Allergy (Mild, Verified 08/09/23 14:59) Blister cefaclor [From Ceclor] Allergy (Mild, Verified 08/09/23 14:59) HIVES codeine [Codeine] Allergy (Mild, Verified 08/09/23 14:59) NAUSEA & VOMITING Sulfa (Sulfonamide Antibiotics) [Sulfa (Sulfonamides)] Allergy (Mild, Verified 08/09/23 14:59) NAUSEA & VOMITING, severe vomiting HPI 2 week follow up Right GSV RFA 07/27/23 HPI Details 63-year-old female presents for follow-u p status post right great saphenous vein radiofrequency ablation. She reports that the swelling has decreased since the procedure. She is now concerned about her left lower extremity swelling. Reports similar type of situation. Of note postprocedure right lower extremity ultrasound was negative for DVT. [facility] Medical History SUZANNE on CPAP Anesthesia complication Nephrolithiasis HTN (hypertension) Right leg DVT Elevated cholesterol GERD (gastroesophageal reflux disease) Pulmonary embolism Asthma Shingles COVID Torn meniscus Ankle injuries Surgical History H/O sinus surgery History of appendectomy History of esophagogastroduodenoscopy (EGD) H/O colonoscopy Hx of lithotripsy History of cholecystectomy H/O: hysterectomy H/O splenectomy Family History Father CAD (coronary artery disease) Mother Asthma Social History Household Members: Spouse Housing: House Are you a primary animal care technician to a significant other at home: No Do you presently have visiting nurse or other home services: No Alcohol intake: current Alcohol intake frequency: holidays/special occasions only Comment: all counts correct Patient Tobacco Use Status: Never used Tobacco service: No Current occupational status: employed Review of Systems Const Reports as per HPI ENT Reports no additional complaints Card Denies chest pain, Denies chest pain at rest and Denies chest pain with activity Resp Denies chest congestion and Denies cough GI Reports no additional complaints Musc Details: pain over varicosities, aching of lower extremities, swelling, cramping, heaviness and tiredness, itching Denies abnormal gait Skin/Breast Reports pruritus and Denies wounds Neuro Reports no additional complaints and Denies abnormal gait Psych Denies no additional complaints Physical Exam Vital Signs: Last Vital Signs Pulse 101 H 08/09/23 14:57 BP 136/84 08/09/23 14:57 Pulse Ox 97 08/09/23 14:57 Oxygen Delivery Method Room Air 08/09/23 14:57 BMI result Body Mass Index 34.7 Const General: cooperative, healthy appearing and comfortable Orientation/consciousness: oriented to person, oriented to place and oriented to time Neck Carotids: no bruits Chest Chest palpation & inspection: normal inspection of the chest and normal palpation of entire chest wall Resp Effort & Inspection: normal respiratory effort and able to speak in complete sentences Cardio Rate: regular rate Heart sounds: S1 normal heart sound present and S2 normal heart sound present Peripheral pulses: Peripheral pulses 2+ throughout GI Inspection: Yes normal to inspection Skin Other: +2 edema, large rope-like varicosities greater than 4 mm CEAP Classification C4 - skin color changes Ep - Etiology Primary As - superficial veins P - reflux General skin exam: dry skin Neuro General: oriented to person, oriented to place and oriented to time Extrem Right lower extremity: full ROM, normal capillary refill and edema Left lower extremity: full ROM, normal capillary refill and edema Psych Mental Status: mental status grossly normal Results Reviewed Results Reviewed: Brief summary of venous insufficiency testing is as follows: right great saphenous vein: Ablated right small saphenous vein: negative right accessory vein: none present left great saphenous vein: Positive left small saphenous vein: negative left accessory vein: none present Please note there is no evidence of any venous aneurysms or significant tortuosity Assessment & Plan Assessment & Plan (1) Varicose veins of left lower extremity with inflammation: Code(s): I83.12 - Varicose veins of left lower extremity with inflammation Plan: This patient has varicose veins with inflammation. They continue to be a source of discomfort for the patient. The patient has tried conservative treatment with compression, leg elevation and exercise program for over 3 months time. They have been compliant with all treatment. This has provided minimal relief for the patient. I do not anticipate this course of treatment will alter the underlying etiology. The patient has been scheduled for lower extremity venous treatment inclusive of --- left great saphenous vein radiofrequency ablation. Risks, benefits, and complications of this procedure has been discussed in detail with the patient including but not limited to bleeding, infection, and the development of a DVT. The patient has demonstrated a clear understanding and has consented. We will schedule the patient as soon as possible. Thank you for allowing us to participate in this patient's care. If there are any questions or concerns please do not hesitate to contact us. (2) Varicose veins of right lower extremity with inflammation: Comment: 07/27/2023 - right great saphenous vein radiofrequency ablation Code(s): I83.11 - Varicose veins of right lower extremity with inflammation Plan: See above Coding Level of Care Code Est Pt Level 4 (53527) Diagnoses Varicose veins of left lower extremity with inflammation I83.12 Varicose veins of right lower extremity with inflammation I83.11
[2023-08-09 14:57] VITALS: BP 136/84; PULSE 101; O2SAT 97; BMI 34.7
== END 2023-08-09 15:33 | disposition home or self-care (01) ==
PROVIDERS: PCP Internal Medicine; Visit Provider Surgery Vascular Surgery
DX: I83.12 Varicose veins of left lower extremity with inflammation (principal); I83.11 Varicose veins of right lower extremity with inflammation
CPT/HCPCS: 99214

== ENCOUNTER → 2023-08-09 14:55 | Outpatient (BNVA) | payer OTHER, SELFPAY | PROVIDERS: PCP Internal Medicine; Visit Provider Surgery Vascular Surgery ==

== ENCOUNTER 2023-08-16 11:19 | Outpatient (AMB) | payer OTHER, SELFPAY ==
[2023-08-16 11:21] VITALS: BP 146/72; PULSE 98; O2SAT 95; BMI 35.8
--- NOTE | 2023-08-16 11:21 | MHC.OFFVIS ---
Intake Vital Signs 08/16/23 11:21 Height 5 ft 2 in Weight 196 lb BMI 35.8 BP 146/72 H Blood Pressure Location Rt brachial Position Sitting Pulse 98 Pulse Source Doppler Pulse Oximetry (%) 95 Oxygen Delivery Method Room Air Intake Visit Reasons: Asthma Allergies Iodinated Contrast Media [IV CONTRAST] Allergy (Intermediate, Verified 08/16/23 11:26) HIVES amlodipine Allergy (Mild, Verified 08/16/23 11:26) Blister cefaclor [From Ceclor] Allergy (Mild, Verified 08/16/23 11:26) HIVES codeine [Codeine] Allergy (Mild, Verified 08/16/23 11:26) NAUSEA & VOMITING Sulfa (Sulfonamide Antibiotics) [Sulfa (Sulfonamides)] Allergy (Mild, Verified 08/16/23 11:26) NAUSEA & VOMITING, severe vomiting HPI Asthma HPI Details 63-year-old lady, lifetime nonsmoker, with multiple first-degree relatives with?asthma, 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 She continues on Nucala, Advair, Spiriva, and levalbuterol MDI with reasonable control of her symptoms. She denies recent acute exacerbations. [facility] Medical History SUZANNE on CPAP Anesthesia complication Nephrolithiasis HTN (hypertension) Right leg DVT Elevated cholesterol GERD (gastroesophageal reflux disease) Pulmonary embolism Asthma Shingles COVID Torn meniscus Ankle injuries Surgical History H/O sinus surgery History of appendectomy History of esophagogastroduodenoscopy (EGD) H/O colonoscopy Hx of lithotripsy History of cholecystectomy H/O: hysterectomy H/O splenectomy Family History Father CAD (coronary artery disease) Mother Asthma Social History Household Members: Spouse Housing: House Are you a primary care transition mgr to a significant other at home: No Do you presently have visiting nurse or other home services: No Alcohol intake: current Alcohol intake frequency: holidays/special occasions only Comment: all counts correct Patient Tobacco Use Status: Never used Tobacco service: No Current occupational status: employed Review of Systems Const Denies daytime sleepiness, Denies excessive sweating, Denies fatigue, Denies fever(s), Denies lethargy, Denies malaise, Denies night sweats, Denies snoring and Denies weight loss Eyes Denies blurry vision and Denies itchy eyes ENT Denies nasal congestion, Denies post nasal drip, Denies sinus pain, Denies sinus pressure and Denies other ( Thrush) Card Denies chest pain, Denies pedal edema, Denies dyspnea, Denies orthopnea and Denies paroxysmal nocturnal dyspnea Resp Denies cough, Denies hemoptysis, Denies excessive phlegm production, Denies dyspnea, Denies snoring and Denies wheezing GI Denies abdominal pain and Denies heartburn Musc Denies myalgias, Denies arthralgias and Denies joint swelling Skin/Breast Denies rash Neuro Denies memory loss and Denies seizure-like activity Psych Denies abnormal sleep pattern, Denies anxiety and Denies memory loss Endo Denies excessive sweating, Denies fatigue and Denies heat intolerance Ernie/Lymph Denies easy bruising Aller/Immun Denies itchy eyes, Denies seasonal rhinorrhea and Denies wheezing Physical Exam Vital Signs: Last Vital Signs Pulse 98 08/16/23 11:21 BP 146/72 H 08/16/23 11:21 Pulse Ox 95 08/16/23 11:21 Oxygen Delivery Method Room Air 08/16/23 11:21 BMI result Body Mass Index 35.8 Const General: no acute distress and alert Nutritional Appearance: not obese Orientation/consciousness: Other orientation findings ( oriented) HEENT Head: Yes atraumatic Eyes General: appearance normal, both eyes and all related structures Sclerae: sclerae normal EOM: EOMs intact bilaterally Neck Neck: Yes supple Lymphatic: no lymphadenopathy noted Resp Effort & Inspection: normal respiratory effort and no use of accessory muscles Auscultation: clear to auscultation bilaterally Cardio Rate: regular rate Rhythm: regular rhythm Heart sounds: no gallops, no murmurs and no rubs Skin General skin exam: other ( warm) Extrem General: No clubbing, No cyanosis and No edema Assessment & Plan Assessment & Plan (1) Asthma: Code(s): J45.909 - Unspecified asthma, uncomplicated Plan: Controlled on current regimen of Nucala, Advair, levalbuterol MDI, and Spiriva. Continue current regimen. (2) Environmental allergies: Code(s): Z91.09 - Other allergy status, other than to drugs and biological substances Plan: Reasonable control Nucala. Continue current regimen. Coding Level of Care Code Est Pt Level 4 (00542) Diagnoses Asthma J45.909 Environmental allergies Z91.09
== END 2023-08-16 11:36 | disposition home or self-care (01) ==
PROVIDERS: PCP Internal Medicine; Visit Provider Internal Medicine Pulmonary Disease
DX: J45.909 Unspecified asthma, uncomplicated (principal); Z91.09 Other allergy status, other than to drugs and biological substances
CPT/HCPCS: 99214

== ENCOUNTER → 2023-08-16 11:19 | Outpatient (BNVA) | payer OTHER, SELFPAY | PROVIDERS: PCP Internal Medicine; Visit Provider Internal Medicine Pulmonary Disease ==

== ENCOUNTER 2023-08-30 14:16 | Outpatient (AMB) | payer OTHER, SELFPAY ==
[2023-08-30 14:24] VITALS: BMI 35.8
--- NOTE | 2023-08-30 14:24 | MHC.OFFVIS ---
Intake Vital Signs 08/30/23 14:24 Height 5 ft 2 in Weight 196 lb BMI 35.8 Intake Visit Reasons: OV-Right Knee Intake Note: Sally is a 63 year old female who presents with complaints of mild intermittent discomfort in her right knee after undergoing right knee arthroscopic surgery on 05/18/2023. She continues with her home exercise program. She denies any fevers or chills. She does walk around the pond at [facility] for exercise. Allergies Iodinated Contrast Media [IV CONTRAST] Allergy (Intermediate, Verified 08/30/23 14:30) HIVES amlodipine Allergy (Mild, Verified 08/30/23 14:30) Blister cefaclor [From Ceclor] Allergy (Mild, Verified 08/30/23 14:30) HIVES codeine [Codeine] Allergy (Mild, Verified 08/30/23 14:30) NAUSEA & VOMITING Sulfa (Sulfonamide Antibiotics) [Sulfa (Sulfonamides)] Allergy (Mild, Verified 08/30/23 14:30) NAUSEA & VOMITING, severe vomiting Medication List - Last Reconciled 08/31/23 by Charlie Limon MD apixaban (Eliquis) 5 mg PO BID atorvastatin 10 mg PO DAILY celecoxib (Celebrex) 200 mg PO BID 30 days cholecalciferol (vitamin D3) (Vitamin D3) 125 mcg PO DAILY comp.stocking,knee,long,medium As directed diltiazem HCl 240 mg PO DAILY 90 days famotidine (Pepcid) 40 mg PO DAILY fluoxetine 20 mg PO DAILY fluticasone propion-salmeterol 230-21 mcg/actuation (Advair HFA) 2 puffs inhalation Q12H 30 days furosemide 40 mg PO DAILY hydromorphone (Dilaudid) 2 mg PO Q6H PRN levalbuterol tartrate 45 mcg/actuation 2 puffs inhalation Q4-6H mepolizumab (Nucala) 100 mg subcut Q4W nortriptyline 10 mg PO DAILY omeprazole 20 mg PO BID tiotropium bromide 2.5 mcg/actuation (Spiriva Respimat) 2 puffs inhalation QAM PFSH Medical History SUZANNE on CPAP Anesthesia complication Nephrolithiasis HTN (hypertension) Right leg DVT Elevated cholesterol GERD (gastroesophageal reflux disease) Pulmonary embolism Asthma Shingles COVID Torn meniscus Ankle injuries Surgical History H/O sinus surgery History of appendectomy History of esophagogastroduodenoscopy (EGD) H/O colonoscopy Hx of lithotripsy History of cholecystectomy H/O: hysterectomy H/O splenectomy Family History Father CAD (coronary artery disease) Mother Asthma Social History Household Members: Spouse Housing: House Are you a primary child care attendant to a significant other at home: No Do you presently have visiting nurse or other home services: No Alcohol intake: current Alcohol intake frequency: holidays/special occasions only Comment: all counts correct Patient Tobacco Use Status: Never used Tobacco service: No Current occupational status: employed Physical Exam Vital Signs: BMI result Body Mass Index 35.8 Const Other: Well-nourished well-developed very friendly female awake alert and oriented x3 in no acute distress Extrem Other: Bilateral lower extremity examination shows good capillary refill, no skin lesions noted, normal sensation light touch Right knee examination shows that the surgical incisions are well healed, no erythema, minimal crepitus with range of motion, no instability Assessment & Plan Assessment & Plan (1) Arthritis of right knee: Code(s): M17.11 - Unilateral primary osteoarthritis, right knee Plan Ms. Esthela Sanders continues to do fairly well after undergoing right knee arthroscopic surgery on 05/18/2023. She does have residual discomfort due to degenerative joint disease. We will hold off on a cortisone injection at this time. She will contact me prior to her follow-up appointment in 2 months should any questions or concerns arise. Feel free to call me at any time should questions regarding her orthopedic management arise. I spent 22 minutes in reviewing the patient's records and imaging studies, seeing the patient and documenting in the medical record. Coding Level of Care Code Est Pt Level 2 (03811) Diagnoses Arthritis of right knee M17.11
== END 2023-08-30 15:04 | disposition home or self-care (01) ==
PROVIDERS: PCP Internal Medicine; Visit Provider Orthopaedic Surgery
DX: M17.11 Unilateral primary osteoarthritis, right knee (principal)
CPT/HCPCS: 99213

== ENCOUNTER → 2023-08-30 14:16 | Outpatient (BNVA) | payer OTHER, SELFPAY | PROVIDERS: PCP Internal Medicine; Visit Provider Orthopaedic Surgery ==

== ENCOUNTER 2023-09-07 09:22 | Outpatient (AMB) | payer OTHER, SELFPAY ==
--- NOTE | 2023-09-07 09:43 | MHC.OFFVIS ---
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: No Allergies Iodinated Contrast Media [IV CONTRAST] Allergy (Intermediate, Verified 09/07/23 09:47) HIVES amlodipine Allergy (Mild, Verified 09/07/23 09:47) Blister cefaclor [From Ceclor] Allergy (Mild, Verified 09/07/23 09:47) HIVES codeine [Codeine] Allergy (Mild, Verified 09/07/23 09:47) NAUSEA & VOMITING Sulfa (Sulfonamide Antibiotics) [Sulfa (Sulfonamides)] Allergy (Mild, Verified 09/07/23 09:47) NAUSEA & VOMITING, severe vomiting Medication List - Last Reconciled 09/07/23 by Betzy Daniels LEDGER CLERK-C apixaban (Eliquis) 5 mg PO BID atorvastatin 10 mg PO DAILY cholecalciferol (vitamin D3) (Vitamin D3) 125 mcg PO DAILY comp.stocking,knee,long,medium As directed diltiazem HCl 240 mg PO DAILY 90 days famotidine (Pepcid) 40 mg PO DAILY fluoxetine 20 mg PO DAILY fluticasone propion-salmeterol 230-21 mcg/actuation (Advair HFA) 2 puffs inhalation Q12H 30 days furosemide 40 mg PO DAILY levalbuterol tartrate 45 mcg/actuation 2 puffs inhalation Q4-6H mepolizumab (Nucala) 100 mg subcut Q4W nortriptyline 10 mg PO DAILY omeprazole 20 mg PO BID tiotropium bromide 2.5 mcg/actuation (Spiriva Respimat) 2 puffs inhalation QAM HPI r/s 4 month f/u HPI Details Sally is a 63-year-old female with past medical history of hypertension, asthma, venous insufficiency who recently underwent a total knee replacement as well as right GSV ablation. Today she reports that she has noticed some increased shortness of breath in the last month. She tells me she had her knee surgery in June. She was mostly sedentary for a few weeks and she is now starting to increase her physical activity and she is noticing the shortness of breath. She does have a history of asthma but feels that it is stable. Since yesterday she believe she is starting to get bronchitis as she has some upper chest congestion. No PND, orthopnea. She is chronic ankle edema which is unchanged recently. No fevers or chills. No chest discomfort at rest or with activity. Still has soreness from her right knee following surgery. She tells me she is scheduled for her left GSV ablation next month. She has not noticed any significant change in her leg edema since the right leg ablation [facility] Medical History SUZANNE on CPAP Anesthesia complication Nephrolithiasis HTN (hypertension) Right leg DVT Elevated cholesterol GERD (gastroesophageal reflux disease) Pulmonary embolism Asthma Shingles COVID Torn meniscus Ankle injuries Surgical History H/O sinus surgery History of appendectomy History of esophagogastroduodenoscopy (EGD) H/O colonoscopy Hx of lithotripsy History of cholecystectomy H/O: hysterectomy H/O splenectomy Family History Father CAD (coronary artery disease) Mother Asthma Alzheimer disease Social History Household Members: Spouse Housing: House Are you a primary child day care teacher to a significant other at home: No Do you presently have visiting nurse or other home services: No Alcohol intake: current Alcohol intake frequency: holidays/special occasions only Comment: all counts correct Patient Tobacco Use Status: Never used Tobacco service: No Current occupational status: employed Review of Systems Const All systems reviewed & are unremarkable except as noted in HPI and below ENT Denies dizziness Card Reports chest pain, Denies chest pain at rest, Denies chest pain with activity, Denies rapid heart rate, Denies pedal edema, Denies edema, Denies leg edema, Denies lightheadedness, Denies palpitations, Denies dyspnea, Reports dyspnea on exertion and Denies orthopnea Resp Denies cough, Denies dyspnea and Reports dyspnea on exertion GI Denies hematochezia and Denies change in stool character Musc Details: 2 months ago had right total knee replacement Denies abnormal gait, Denies muscle cramps, Denies muscle weakness, Denies numbness, Denies radiating pain into limb, Denies stiffness and Denies tingling Neuro Denies abnormal gait, Denies dizziness, Denies numbness and Denies tingling Endo Denies palpitations Physical Exam Vital Signs: Last Vital Signs Pulse 104 H 09/07/23 09:44 BP 132/68 09/07/23 09:44 BMI result Body Mass Index 35.2 Const General: cooperative, healthy appearing, comfortable and no acute distress Orientation/consciousness: patient oriented x3 Neck Neck: Yes normal visual inspection and Yes no JVD Resp Effort & Inspection: normal respiratory effort Auscultation: clear to auscultation bilaterally, no crackles, no rales, no rhonchi and no wheezes Cardio Jugular venous distension: no JVD Rate: regular rate Rhythm: regular rhythm Heart sounds: S1 normal heart sound present, S2 normal heart sound present, no murmurs and no rubs Neuro General: patient oriented x3 Extrem Other: nonpitting edema at ankles General: Yes normal to inspection, No no pedal edema and No calf tenderness Psych Appearance: grossly normal Mental Status: mental status grossly normal Speech and movement: Normal speech and movement present Assessment & Plan Assessment & Plan (1) Dyspnea: Code(s): R06.00 - Dyspnea, unspecified Plan: Patient reports some increased shortness of breath with activity in the last few weeks. She does have a known history of asthma which she reports as stable. She has a history of a prior small PE which is not likely to be contributing to symptom. She did have knee replacement surgery and was mostly sedentary for a few weeks starting in June. She is now trying to increase her physical activity as her right knee heals and she notices the shortness of breath. She does not appear fluid overloaded on examination. She does have a hoarse sounding voice and cough with deep inspiration. I do not hear rales or rhonchi on exam. She describes getting bronchitis in July/August each year. She now feels she may be coming down with bronchitis and she will notify her PCP. The shortness of breath over the last few weeks could be related to deconditioning and or combination with asthma. At this time it does not appear to be a cardiac symptom. She will continue to monitor symptoms and cardiology follow-up will be in a few months, sooner if needed (2) Asthma: Code(s): J45.909 - Unspecified asthma, uncomplicated Plan: As above (3) Pulmonary embolism: Code(s): I26.99 - Other pulmonary embolism without acute cor pulmonale Plan: As above. Continues on Eliquis for anticoagulation (4) Right knee pain: Code(s): M25.561 - Pain in right knee Plan: Right total knee replacement June 2023 (5) Hypertension: Code(s): I10 - Essential (primary) hypertension Plan: Well controlled at present time, no med changes made Plan Time spent on chart review, documentation, interview and assessment Coding Level of Care Code Est Pt Level 4 (88838) Diagnoses Dyspnea R06.00 Asthma J45.909 Pulmonary embolism I26.99 Right knee pain M25.561 Hypertension I10 Time Spent (min) 28
[2023-09-07 09:44] VITALS: BP 132/68; PULSE 104; BMI 35.2
== END 2023-09-07 10:17 | disposition home or self-care (01) ==
PROVIDERS: PCP Internal Medicine; Visit Provider Nurse Practitioner Family
DX: R06.00 Dyspnea, unspecified (principal); J45.909 Unspecified asthma, uncomplicated; I26.99 Other pulmonary embolism without acute cor pulmonale; M25.561 Pain in right knee; I10 Essential (primary) hypertension
CPT/HCPCS: 99214

== ENCOUNTER → 2023-09-07 09:22 | Outpatient (BNVA) | payer OTHER, SELFPAY | PROVIDERS: PCP Internal Medicine; Visit Provider Nurse Practitioner Family ==

== ENCOUNTER 2023-11-14 12:36 | Outpatient (AMB) | payer OTHER, SELFPAY ==
[2023-11-14 12:46] VITALS: BP 130/86; PULSE 93; BMI 35.3
--- NOTE | 2023-11-14 12:46 | MHC.OFFVIS ---
Vital Signs 11/14/23 12:46 Height 5 ft 2 in Weight 193 lb 1.999 oz BMI 35.3 BP 130/86 Blood Pressure Location Lt brachial Position Sitting Pulse 93 Intake Visit Reasons: 3 mth fu Intake Note: pt states that for the past 4 days shes been having pain that goes from her right hand all the way to her chest, with some headache on the left side of her head. Pantograph Transferrer Required: No Accompanied by: Self / Same As Patient Allergies Iodinated Contrast Media [IV CONTRAST] Allergy (Intermediate, Verified 09/07/23 09:47) HIVES amlodipine Allergy (Mild, Verified 09/07/23 09:47) Blister cefaclor [From Ceclor] Allergy (Mild, Verified 09/07/23 09:47) HIVES codeine [Codeine] Allergy (Mild, Verified 09/07/23 09:47) NAUSEA & VOMITING Sulfa (Sulfonamide Antibiotics) [Sulfa (Sulfonamides)] Allergy (Mild, Verified 09/07/23 09:47) NAUSEA & VOMITING, severe vomiting Medication List - Last Reconciled 11/14/23 by Jonah Watson MD apixaban (Eliquis) 5 mg PO BID atorvastatin 10 mg PO DAILY comp.stocking,knee,long,medium As directed diltiazem HCl CD 240 mg PO DAILY 90 days famotidine (Pepcid) 40 mg PO DAILY fluoxetine 20 mg PO DAILY fluticasone propion-salmeterol 230-21 mcg/actuation (Advair HFA) 2 puffs inhalation Q12H 30 days furosemide 40 mg PO DAILY levalbuterol tartrate 45 mcg/actuation 2 puffs inhalation Q4-6H mepolizumab (Nucala) 100 mg subcut Q4W nortriptyline 10 mg PO DAILY omeprazole 20 mg PO BID tiotropium bromide 2.5 mcg/actuation (Spiriva Respimat) 2 puffs inhalation QAM HPI Comments Details: 63-year-old female here for f/u. She was diagnosed with PE. She was experiencing SOB, sharp CP and tachycardia. She continues to have significant dyspnea which is out in proportion to the small PE and is due to asthma. She is following with pulmonology She has no significant lower extremity edema. 07/19/22: She still has pressure like chest discomfort. Previous cardiac work up including cardiac cath were normal. She is also complaining of orthopnea but dyspnea did not respond to higher diuretics dose. Taking Eliquis. We had a discussion about referral to Hematology about duration of anticoagulation. She has followed with Hematology and has decided to stay on Eliquis for now. 01/22/23: She is here for follow-up. EKG in the office in showing sinus rhythm 89 beats per minute, normal axis, normal ECG, QTC 479 milliseconds. She is complaining of lower extremity edema. She is saying her asthma has been uncontrolled. Denying any chest discomfort otherwise. She has been taking apixaban regularly and is following with Hematology to decide the duration of apixaban. 11/14/23: She returns for follow-up. She has been experiencing chest discomfort with right arm discomfort for the last 2-3 days. She also had indigestion like feeling which is present. She is saying she has not short of breath or wheezy. She had lower extremity vein ablation in July 2023. She has persistent lower extremity edema and swelling which has not changed since then. She also had air travel history in early October when she flew to [place]. She is saying she has been taking Eliquis regularly. Seems quite anxious and concerned. [facility] Medical History SUZANNE on CPAP Anesthesia complication Nephrolithiasis HTN (hypertension) Right leg DVT Elevated cholesterol GERD (gastroesophageal reflux disease) Pulmonary embolism Asthma Shingles COVID Torn meniscus Ankle injuries Surgical History H/O sinus surgery History of appendectomy History of esophagogastroduodenoscopy (EGD) H/O colonoscopy Hx of lithotripsy History of cholecystectomy H/O: hysterectomy H/O splenectomy Family History Father CAD (coronary artery disease) Mother Asthma Alzheimer disease Social History Household Members: Spouse Housing: House Are you a primary care nurse rn to a significant other at home: No Do you presently have visiting nurse or other home services: No Alcohol intake: current Alcohol intake frequency: holidays/special occasions only Comment: all counts correct Patient Tobacco Use Status: Never used Tobacco service: No Current occupational status: employed Review of Systems Const Denies chills, Denies fatigue, Denies fever(s), Denies frequent falls, Denies weakness, Denies weight gain and Denies weight loss ENT Denies dizziness Card Reports chest pain, Reports leg edema, Reports lightheadedness, Denies palpitations, Denies dyspnea and Denies dyspnea on exertion Resp Denies cough, Denies dyspnea and Denies dyspnea on exertion GI Denies hematochezia Musc Denies abnormal gait, Reports muscle weakness, Reports numbness, Reports radiating pain into limb and Denies tingling Neuro Denies abnormal gait, Denies dizziness, Denies frequent falls, Reports numbness, Denies tingling and Denies weakness Endo Denies fatigue and Denies palpitations Physical Exam Vital Signs: Last Vital Signs Pulse 93 11/14/23 12:46 BP 130/86 11/14/23 12:46 BMI result Body Mass Index 35.3 GENERAL APPEARANCE: In no acute distress. NECK: no carotid bruit, no jugular venous distention. SKIN: no suspicious lesions, warm and dry. HEART: no murmurs, regular rate and rhythm. LUNGS: clear to auscultation bilaterally. ABDOMEN: soft, nontender. EXTREMITIES: Right lower extremity more than left lower extremity swelling. Mild edema. PERIPHERAL PULSES: equal. NEUROLOGIC: No gross deficits, AAO X 3 Office Procedures EKG Details: Sinus rhythm 93 beats per minute, normal EKG, QTC 457 milliseconds. [id number], Complete Assessment & Plan Assessment & Plan (1) Chest pain: Code(s): R07.9 - Chest pain, unspecified Category: Medical Plan Pleasant 63 year female who is here for follow-up. She has background history of pulmonary embolism and has been on Eliquis. She also has venous insufficiency and underwent vein ablation in July 2023. Recent air travel in the last month to [place]. She has been taking Eliquis regularly. She has been getting persistent discomfort in the chest which is then indigestion like feeling along with right arm discomfort. EKGs not showing any dynamic changes. Differentials include acute coronary syndrome, GERD with esophageal spasm. She needs further workup in the ER. I have discussed this with the patient and with ER physician. We will check repeat EKG in the ER and sent high sensitivity troponin levels. Also her right lower extremity will be scan just to make sure there is no DVT. She has been quite evangelical about taking apixaban and risk is low but still warrants workup. Blood pressure is reasonably controlled. She will be seen in follow-up in few months. Thank you for allowing me to participate in the care of your patient. Please feel free to contact me if you have any questions. Coding Level of Care Code Est Pt Level 4 (75842) Diagnoses Chest pain R07.9 CPT Codes EKG - CPT: 42433-[id number], Complete ([id number])
== END 2023-11-14 13:16 | disposition home or self-care (01) ==
PROVIDERS: PCP Internal Medicine; Visit Provider Internal Medicine Cardiovascular Disease
DX: R07.9 Chest pain, unspecified (principal)
CPT/HCPCS: 93010; 99214

== ENCOUNTER → 2023-11-14 12:36 | Outpatient (BNVA) | payer OTHER, SELFPAY | PROVIDERS: PCP Internal Medicine; Visit Provider Internal Medicine Cardiovascular Disease | DX: R07.9 Chest pain, unspecified (principal); Z86.711 Personal history of pulmonary embolism; Z79.01 Long term (current) use of anticoagulants | CPT/HCPCS: 93005 ==

== ENCOUNTER 2023-11-14 13:20 | Emergency (ER) | payer OTHER, SELFPAY ==
--- NOTE | ~2023-11-14 | US_ITS ---
EXAMINATION: US VENOUS ULTRASOUND WITH DOPPLER LOWER EXTREMITY, RIGHT CLINICAL INFORMATION: Right lower extremity swelling COMPARISON: 07/30/2023 TECHNIQUE: Ultrasound of the deep veins is performed from the hip to the calf with compression sonography and color and pulse Doppler assessment. Spectral analysis with color-flow imaging is performed. FINDINGS: There is normal venous compression and respiratory variation and augmented flow. The visualized common femoral vein, superficial femoral vein, profunda femoral vein, popliteal vein, and the trifurcation region shows no evidence of deep venous thrombosis. There is no significant popliteal fossa cyst. If the patient's symptoms persist, followup ultrasound in 5 days 7 days might be of value to exclude proximal propagation from a non-visualized calf vein. US/US venous duplex LE RT IMPRESSION: No DVT demonstrated in the right lower extremity.
--- NOTE | 2023-11-14 13:22 | ECG_ITS ---
Test Reason : PAIN Blood Pressure : / mmHG Vent. Rate : 092 BPM Atrial Rate : 092 BPM P-R Int : 144 ms QRS Dur : 076 ms QT Int : 372 ms P-R-T Axes : 055 042 041 degrees QTc Int : 460 ms Normal sinus rhythm Possible Left atrial enlargement Borderline ECG When compared with ECG of 18-MAY-2023 13:43, No significant change was found Referred By: Barney Polk Electronically Signed By:LISS MCCLURE
[2023-11-14 13:47] LABS: MANUAL DIFF FLAG NO
[2023-11-14 13:49] LABS: Basophils Absolute Auto 0.1 X10*3/uL (0.0-0.2); Eosinophils Absolute Auto 0.1 X10*3/uL (0.0-0.4); Eosinophils Percent Auto 1.2 % (0-4); Hemoglobin 14.5 g/dl (12.0-16.0); Imm Gran Abs Auto 0.03 X10*3/uL (0.00-0.03); Imm Gran Pct Auto 0.3 % (0.0-0.4); Lymphocytes Percent Auto 38.8 % (20-40); Mean Corpuscular HGB Conc 34.5 g/dl (31.0-35.0); Mean Corpuscular Hemoglobin 30.9 pg (27.0-33.0); Mean Corpuscular Volume 89.6 fL (80.0-98.0); Mean Platelet Volume 9.1 fL (9.4-12.3); Monocytes Percent Auto 9.2 % (2-11); Neutrophils Absolute Auto 5.2 x10*3/uL (2.0-8.3); Neutrophils Percent Auto 49.5 % (45-73); Platelet Count 547 X10*3/uL (160-400); Red Blood Count 4.69 X10*6/uL (4.20-5.50); Red Cell Distribution Width 14.3 % (11.0-16.0); White Blood Count 10.4 X10*3/uL (4.8-10.8)
[2023-11-14 13:56] VITALS: BP 158/85; PULSE 88; RESP 16; TEMP 36.7; O2SAT 99; BMI 34.7
--- NOTE | 2023-11-14 13:56 | ED_ITS ---
HPI - General Adult General Chief complaint: Chest Pain Stated complaint: Chest pain - sent by Time Seen by Provider: 11/14/23 17:06 Source: patient, RN notes reviewed and old records reviewed Mode of arrival: ambulatory Limitations: no limitations History of Present Illness HPI narrative: 63-year-old female past medical history significant for PE on Eliquis presents for evaluation of chest pain Patient has had chest pain since last Sunday, 5 days ago. Her pain worsened yesterday The pain radiates to her right arm. Her pain is unrelated to exertion She also has burning pain in her chest with a history of GERD Denies any coughing, shortness of breath Denies any fevers, chills No other complaints or concerns at this time Related Data Home Medications ?Medication ?Instructions ?Recorded ?Confirmed atorvastatin 10 mg tablet 10 mg PO DAILY 05/27/20 11/14/23 fluoxetine 20 mg capsule 20 mg PO DAILY 05/27/20 11/14/23 levalbuterol tartrate 45 2 puff inhalation Q4-6H 05/27/20 11/14/23 mcg/actuation aerosol inhaler famotidine 40 mg tablet (Pepcid) 40 mg PO DAILY 03/15/22 11/14/23 furosemide 40 mg tablet 40 mg PO DAILY 03/15/22 11/14/23 nortriptyline 10 mg capsule 10 mg PO DAILY 03/27/22 11/14/23 omeprazole 20 mg tablet,delayed 20 mg PO BID 07/27/22 11/14/23 release mepolizumab 100 mg subcutaneous 100 mg subcut Q4W 09/11/22 11/14/23 solution (Nucala) Previous Rx's ?Medication ?Instructions ?Recorded diltiazem HCl 240 mg 240 mg PO DAILY 90 days #90 caps 11/22/22 capsule,extended release 24 hr tiotropium bromide 2.5 2 puff inhalation QAM #4 grams 12/06/22 mcg/actuation mist for inhalation (Spiriva Respimat) comp.stocking,knee,long,medium #4 ea 01/22/23 fluticasone propionate 230 2 puff inhalation Q12H 30 days #1 05/16/23 mcg-salmeterol 21 mcg/actuation ea HFA inhaler (Advair HFA) apixaban 5 mg tablet (Eliquis) 5 mg PO BID #90 tabs 06/04/23 Allergies Allergy/AdvReac Type Severity Reaction Status Date / Time Iodinated Contrast Media Allergy Intermediate HIVES Verified 11/14/23 13:59 [IV CONTRAST] amlodipine Allergy Mild Blister Verified 11/14/23 13:59 cefaclor [From Ceclor] Allergy Mild HIVES Verified 11/14/23 13:59 codeine [Codeine] Allergy Mild NAUSEA & Verified 11/14/23 13:59 VOMITING Sulfa (Sulfonamide Allergy Mild NAUSEA & Verified 11/14/23 13:59 Antibiotics) VOMITING, [Sulfa (Sulfonamides)] severe vomiting Review of Systems 2 Constitutional: Constitutional: Denies body ache(s), Denies chills, Denies fever(s) and Denies headache(s) Eyes: Eyes: Denies blurry vision ENT: Denies headache(s) Cardiovascular: Cardiovascular: Denies painful fingertips, Reports chest pain, Reports radiating jaw, neck or arm pain and Denies dyspnea Respiratory: Respiratory: Denies cough and Denies dyspnea Gastrointestinal: Gastrointestinal: Denies abdominal pain, Denies nausea and Denies vomiting Musculoskeletal: Musculoskeletal: Denies back pain Integumentary/Breasts: Skin/Breast: Denies rash Neurologic: Denies headache(s) [facility] Past Medical History Medical History SUZANNE on CPAP Anesthesia complication Nephrolithiasis HTN (hypertension) Right leg DVT Elevated cholesterol GERD (gastroesophageal reflux disease) Pulmonary embolism Asthma Shingles COVID Torn meniscus Ankle injuries Surgical History H/O sinus surgery History of appendectomy History of esophagogastroduodenoscopy (EGD) H/O colonoscopy Hx of lithotripsy History of cholecystectomy H/O: hysterectomy H/O splenectomy Family History Family History Father CAD (coronary artery disease) Mother Asthma Alzheimer disease Social History Social History Household Members: Spouse Housing: House Are you a primary physician locums urgent care to a significant other at home: No Do you presently have visiting nurse or other home services: No Alcohol intake: current Alcohol intake frequency: holidays/special occasions only Comment: all counts correct Patient Tobacco Use Status: Never used Tobacco Advance Directives: No Advance Directives Information Provided: No service: No Current occupational status: employed Physical Exam ED Vital Signs: Vital Signs - 24 hr 11/14/23 13:56 11/14/23 17:19 Temperature 98.0 F 98.2 F Pulse Rate 88 86 Respiratory Rate 16 18 Blood Pressure 158/85 H 167/78 H Pulse Oximetry 99 98 Oxygen Delivery Method Room Air Room Air BMI result Body Mass Index 34.7 Const General: healthy appearing, comfortable, no acute distress, alert and awake Nutritional Appearance: well nourished Orientation/consciousness: patient oriented x3 HENMT Head: Yes normocephalic and Yes atraumatic Eyes Eyelids: Yes eyelids normal Conjunctivae: conjunctivae normal Sclerae: sclerae normal Corneas: corneas normal Pupils: Equal, round and reactive pupils present EOM: EOMs intact bilaterally Neck Neck: Yes full ROM Resp Effort & Inspection: normal respiratory effort, able to speak in complete sentences, no audible wheezes and not labored Auscultation: clear to auscultation bilaterally Cardio Rate: regular rate Rhythm: regular rhythm GI Inspection: No distended Palpation (GI): Soft to palpation, not firm, nontender, no guarding and not rigid Skin General skin exam: elasticity normal Neuro General: patient oriented x3 Cranial nerves: Yes Equal, round and reactive pupils present and Yes Bilaterally intact EOM present Cognition (Neuro): normal cognition Extrem Other: Moving all extremities well without any obvious deformities Course Course Course Narrative: RME- 63 year old female presents for evaluation of chest pain. Symptoms have been present for the last 4 or 5 days. Pain radiates to the right arm and jaw. She also endorses worsening indigestion. Plan for cardiac workup. The patient is on Eliquis for history of PE Medical Decision Making Medical Decision Making MDM Narrative: 63-year-old female presents for evaluation of chest pain, shortness history and PE other Eliquis. Her vital signs are stable she is slightly hypertensive. EKG is sinus rhythm rate [address] segment changes. Troponin is negative despite pain for 5 days, she has ruled out for ACS. She is neither tachycardic, tachypneic or hypoxic. Less likely be PE. Her labs are reviewed without significant abnormality pain and pain related to GERD or costochondritis, both of which she has a history Differential Diagnosis Differential Diagnoses: The differential diagnosis associated with the presentation includes Chest pain ACS GERD Costochondritis Anxiety Lab Data MDM Lab Attestation statement: I reviewed the patient's lab results. No leukocytosis or anemia. Patient has a thrombocytosis with a platelet count 547. No electrolyte abnormalities. Troponin undetectable 11/14/23 13:43 11/14/23 13:43 Labs: Lab Results 11/14/23 Range/Units 13:43 WBC 10.4 (4.8-10.8) X10*3/uL RBC 4.69 (4.20-5.50) X10*6/uL Hgb 14.5 (12.0-16.0) g/dl Hct 42.0 (37.0-47.0) % MCV 89.6 (80.0-98.0) fL MCH 30.9 (27.0-33.0) pg MCHC 34.5 (31.0-35.0) g/dl RDW 14.3 (11.0-16.0) % Plt Count 547 H (160-400) X10*3/uL MPV 9.1 L (9.4-12.3) fL Immature Gran % (Auto) 0.3 (0.0-0.4) % Neut % (Auto) 49.5 (45-73) % Lymph % (Auto) 38.8 (20-40) % [place] % (Auto) 9.2 (2-11) % Eos % (Auto) 1.2 (0-4) % Baso % (Auto) 1.0 (0-2) % Lymph # (Auto) 4.0 (1.2-4.9) X10*3/uL [place] # (Auto) 1.0 (0.1-1.2) X10*3/uL Eos # (Auto) 0.1 (0.0-0.4) X10*3/uL Baso # (Auto) 0.1 (0.0-0.2) X10*3/uL Abs Immat Gran (auto) 0.03 (0.00-0.03) X10*3/uL Absolute Neuts (auto) 5.2 (2.0-8.3) x10*3/uL Absolute Nucleated RBC 0.000 (0.0-0.012) X10*3/uL Nucleated RBC % (auto) 0.0 (0.0-0.2) /100WBC Sodium 140 (135-145) mmol/L Potassium 3.9 (3.3-5.1) mmol/L Chloride 104 (96-108) mmol/L Carbon Dioxide 25 (22-29) mmol/L Anion Gap 15 (12-20) BUN 9 (9-16) mg/dL Creatinine 0.79 (0.5-1.4) mg/dL Estim Creat Clear Calc 75.1 Estimated GFR > 60 Random Glucose 119 H (60-115) mg/dL Calcium 9.6 (8.4-10.2) mg/dL Magnesium 2.4 (1.6-2.6) mg/dL Total Bilirubin 0.3 (0.0-1.0) mg/dL AST 21 (5-31) U/L ALT 26 (0-31) U/L Alkaline Phosphatase 106 (39-117) U/L Troponin I High Sens < 2.7 (<3.5-17.0) ng/L B-Natriuretic Peptide 18 (<100) pg/mL Total Protein 8.2 H (6.5-8.0) g/dL Albumin 4.4 (3.5-5.0) g/dL Independent Interpretation I performed an independent interpretation of an: EKG Interpretation: See above Discharge Plan Discharge Clinical Impression: Chest pain Patient Disposition: Home, Self-Care Instructions: Chest Pain (ED) Additional Instructions: Your workup in the ER today was reassuring. This includes your blood work, ultrasound and EKG Follow-up with your primary doctor Return for new or worsening symptoms Prescriptions: No Action diltiazem HCl 240 mg capsule,extended release 24hr 240 mg PO DAILY 90 Days Qty: 90 3RF Spiriva Respimat 2.5 mcg/actuation mist 2 puff inhalation QAM Qty: 4 6RF Advair HFA 230-21 mcg/actuation HFA aerosol inhaler 2 puff inhalation Q12H 30 Days Qty: 1 6RF Eliquis 5 mg tablet 5 mg PO BID Qty: 90 3RF omeprazole 20 mg Tablet,Delayed Release (Dr/Ec) 20 mg PO BID Nucala 100 mg recon soln 100 mg subcut Q4W fluoxetine 20 mg capsule 20 mg PO DAILY atorvastatin 10 mg tablet 10 mg PO DAILY levalbuterol tartrate 45 mcg/actuation HFA aerosol inhaler 2 puff inhalation Q4-6H nortriptyline 10 mg capsule 10 mg PO DAILY famotidine [Pepcid] 40 mg tablet 40 mg PO DAILY furosemide 40 mg tablet 40 mg PO DAILY (DME) comp.stocking,knee,long,medium Misc See Rx Instructions .Route Qty: 4 0RF Rx Instructions: As directed Interventions: ED Discharge Assessment Last Done: 11/14/23 17:19 Discharge Date/Time: 11/14/23 17:20 Print Language: Khmer
[2023-11-14 14:02] LABS: Alanine Aminotransferase 26 U/L (0-31); Albumin Level 4.4 g/dL (3.5-5.0); Alkaline Phosphatase 106 U/L (39-117); Anion Gap 15 (12-20); Aspartate Amino Transferase 21 U/L (5-31); Bilirubin Total 0.3 mg/dL (0.0-1.0); Blood Urea Nitrogen 9 mg/dL (9-16); Calcium 9.6 mg/dL (8.4-10.2); Carbon Dioxide 25 mmol/L (22-29); Chloride 104 mmol/L (96-108); Creatinine Clr Calc Pharmacy 75.1; Estimated Glomerular Filt Rate > 60; Glucose Random 119 mg/dL (60-115); Magnesium 2.4 mg/dL (1.6-2.6); Potassium 3.9 mmol/L (3.3-5.1); Sodium 140 mmol/L (135-145); Total Protein 8.2 g/dL (6.5-8.0)
[2023-11-14 14:08] LABS: B Type Natriuretic Peptide 18 pg/mL (<100)
[2023-11-14 14:09] LABS: Troponin-I High Sensitivity < 2.7 ng/L (<3.5-17.0)
[2023-11-14 17:19] VITALS: BP 167/78; PULSE 86; RESP 18; TEMP 36.8; O2SAT 98
== END 2023-11-14 17:20 | disposition home or self-care (01) ==
PROVIDERS: Physician Assistant; Emergency Provider Emergency Medicine; PCP Internal Medicine
DX: R07.9 Chest pain, unspecified (principal); M79.89 Other specified soft tissue disorders; R06.02 Shortness of breath; I10 Essential (primary) hypertension; E78.00 Pure hypercholesterolemia, unspecified; K21.9 Gastro-esophageal reflux disease without esophagitis; Z86.711 Personal history of pulmonary embolism; Z86.718 Personal history of other venous thrombosis and embolism; Z79.01 Long term (current) use of anticoagulants; Z79.02 Long term (current) use of antithrombotics/antiplatelets
CPT/HCPCS: 36415; 80053; 83735; 83880; 84484; 85025; 93005; 93971; 99283; 99284

== ENCOUNTER 2023-11-29 14:54 | Outpatient (AMB) | payer OTHER, SELFPAY ==
[2023-11-29 14:57] VITALS: BMI 34.7
--- NOTE | 2023-11-29 14:57 | A.OFFVIS_ITS ---
Vital Signs 11/29/23 14:57 Height 5 ft 2 in Weight 190 lb BMI 34.7 Intake Visit Reasons: follow up s/p Right ablation,no L LE until seen Intake Note: PT Follow up for Right LE swelliong s/p Right GSV RFA 07/27/23 and Right LE swelling has not gotten better, Its been pretty severe swelling, worse than Left LE which needs a procedure as well. Was scheduled for a Left GSV RFA as well but cancelled due to Right LE issues. Pt was also seen by Cardiology recently for chest pain, no confirmed issues but has further testing in the next month. Accompanied by: Self / Same As Patient Allergies Iodinated Contrast Media [IV CONTRAST] Allergy (Intermediate, Verified 11/29/23 15:04) HIVES amlodipine Allergy (Mild, Verified 11/29/23 15:04) Blister cefaclor [From Ceclor] Allergy (Mild, Verified 11/29/23 15:04) HIVES codeine [Codeine] Allergy (Mild, Verified 11/29/23 15:04) NAUSEA & VOMITING Sulfa (Sulfonamide Antibiotics) [Sulfa (Sulfonamides)] Allergy (Mild, Verified 11/29/23 15:04) NAUSEA & VOMITING, severe vomiting HPI HPI follow up s/p Right ablation,no L LE until seen: Details: Very pleasant 63-year-old female presents for follow-up status post right great saphenous vein ablation. She reports that the overall right leg did do better for a little bit but she does have significant swelling still bilateral lower extremities. She is concerned about this. It has been a source of pain and discomfort for her. She is also concerned about her left lower extremity. [facility] Medical History SUZANNE on CPAP Anesthesia complication Nephrolithiasis HTN (hypertension) Right leg DVT Elevated cholesterol GERD (gastroesophageal reflux disease) Pulmonary embolism Asthma Shingles COVID Torn meniscus Ankle injuries Surgical History H/O sinus surgery History of appendectomy History of esophagogastroduodenoscopy (EGD) H/O colonoscopy Hx of lithotripsy History of cholecystectomy H/O: hysterectomy H/O splenectomy Family History Father CAD (coronary artery disease) Mother Asthma Alzheimer disease Social History Household Members: Spouse Housing: House Are you a primary care transition mgr to a significant other at home: No Do you presently have visiting nurse or other home services: No Alcohol intake: current Alcohol intake frequency: holidays/special occasions only Comment: all counts correct Patient Tobacco Use Status: Never used Tobacco service: No Current occupational status: employed Review of Systems Const Reports as per HPI ENT Reports no additional complaints Card Denies chest pain, Denies chest pain at rest and Denies chest pain with activity Resp Denies chest congestion and Denies cough GI Reports no additional complaints Musc Details: pain over varicosities, aching of lower extremities, swelling, cramping, heaviness and tiredness, itching Denies abnormal gait Skin/Breast Reports pruritus and Denies wounds Neuro Reports no additional complaints and Denies abnormal gait Psych Denies no additional complaints Physical Exam Vital Signs: BMI result Body Mass Index 34.7 Const General: cooperative, healthy appearing and comfortable Orientation/consciousness: oriented to person, oriented to place and oriented to time Neck Carotids: no bruits Chest Chest palpation & inspection: normal inspection of the chest and normal palpation of entire chest wall Resp Effort & Inspection: normal respiratory effort and able to speak in complete sentences Cardio Rate: regular rate Heart sounds: S1 normal heart sound present and S2 normal heart sound present Peripheral pulses: Peripheral pulses 2+ throughout GI Inspection: Yes normal to inspection Skin Other: +2 edema, CEAP Classification C4 - skin color changes Ep - Etiology Primary As - superficial veins P - reflux General skin exam: dry skin Neuro General: oriented to person, oriented to place and oriented to time Extrem Right lower extremity: full ROM, normal capillary refill and edema Left lower extremity: full ROM, normal capillary refill and edema Psych Mental Status: mental status grossly normal Results Reviewed Results Reviewed: Brief summary of venous insufficiency testing is as follows: right great saphenous vein: Ablated right small saphenous vein: negative right accessory vein: none present left great saphenous vein: Positive left small saphenous vein: negative left accessory vein: none present Please note there is no evidence of any venous aneurysms or significant tortu osity Assessment & Plan Assessment & Plan (1) Varicose veins of left lower extremity with inflammation: Code(s): I83.12 - Varicose veins of left lower extremity with inflammation Category: Medical Plan: This patient has varicose veins with inflammation. They continue to be a source of discomfort for the patient. The patient has tried conservative treatment with compression, leg elevation and exercise program for over 3 months time. They have been compliant with all treatment. This has provided minimal relief for the patient. I do not anticipate this course of treatment will alter the underlying etiology. The patient has been scheduled for lower extremity venous treatment inclusive of --- left great saphenous vein Cyanoacralate ablation. Risks, benefits, and complications of this procedure has been discussed in detail with the patient including but not limited to bleeding, infection, and the development of a DVT. The patient has demonstrated a clear understanding and has consented. We will schedule the patient as soon as possible. Thank you for allowing us to participate in this patient's care. If there are any questions or concerns please do not hesitate to contact us. (2) Lymphedema: Code(s): I89.0 - Lymphedema, not elsewhere classified Category: Medical Plan: I do suspect that the patient does have an element of lymphedema. We will treat her venous disease. Thank you for allowing us to assist in her care Coding Level of Care Code Est Pt Level 4 (24421) Diagnoses Varicose veins of left lower extremity with inflammation I83.12 Lymphedema I89.0
== END 2023-11-29 15:41 | disposition home or self-care (01) ==
PROVIDERS: PCP Internal Medicine; Visit Provider Surgery Vascular Surgery
DX: I83.12 Varicose veins of left lower extremity with inflammation (principal); I89.0 Lymphedema, not elsewhere classified
CPT/HCPCS: 99214

== ENCOUNTER → 2023-11-29 14:54 | Outpatient (BNVA) | payer OTHER, SELFPAY | PROVIDERS: PCP Internal Medicine; Visit Provider Surgery Vascular Surgery ==

== ENCOUNTER 2024-02-01 09:29 | Outpatient (AMB) | payer OTHER, SELFPAY ==
[2024-02-01 09:32] VITALS: BMI 34.7
--- NOTE | 2024-02-01 09:32 | MHC.OFFVIS ---
Vital Signs 02/01/24 09:32 Height 5 ft 2 in Weight 190 lb BMI 34.7 Intake Visit Reasons: Left GSV RFA Accompanied by: Self / Same As Patient Allergies Iodinated Contrast Media [IV CONTRAST] Allergy (Intermediate, Verified 11/29/23 15:04) HIVES amlodipine Allergy (Mild, Verified 11/29/23 15:04) Blister cefaclor [From Ceclor] Allergy (Mild, Verified 11/29/23 15:04) HIVES codeine [Codeine] Allergy (Mild, Verified 11/29/23 15:04) NAUSEA & VOMITING Sulfa (Sulfonamide Antibiotics) [Sulfa (Sulfonamides)] Allergy (Mild, Verified 11/29/23 15:04) NAUSEA & VOMITING, severe vomiting PFSH Medical History SUZANNE on CPAP Anesthesia complication Nephrolithiasis HTN (hypertension) Right leg DVT Elevated cholesterol GERD (gastroesophageal reflux disease) Pulmonary embolism Asthma Shingles COVID Torn meniscus Ankle injuries Surgical History H/O sinus surgery History of appendectomy History of esophagogastroduodenoscopy (EGD) H/O colonoscopy Hx of lithotripsy History of cholecystectomy H/O: hysterectomy H/O splenectomy Family History Father CAD (coronary artery disease) Mother Asthma Alzheimer disease Social History Household Members: Spouse Housing: House Are you a primary home care liaison to a significant other at home: No Do you presently have visiting nurse or other home services: No Alcohol intake: current Alcohol intake frequency: holidays/special occasions only Comment: all counts correct Patient Tobacco Use Status: Never used Tobacco service: No Current occupational status: employed Physical Exam Vital Signs: BMI result Body Mass Index 34.7 Office Procedures Vascular Office Procedure Details Details: Diagnosis: Varicose veins with inflammation of left leg Procedure: Endovenous radiofrequency ablation of the left great saphenous vein(s) of the lower extremity. Anesthesia: Local infiltration 5 cc, Tumescent 250 cc. Estimated Blood Loss: minimal Specimen: Varicose veins The patient was transferred to the procedure suite and the insufficient saphenous vein was mapped by ultrasound and diagrammed on the overlying skin. The depth and diameter of the vein(s) to be treated was documented. The varicose tributary veins and suitable access sites were identified and mapped as well. The patient was then positioned supine on the procedure table. The affected limb was prepped and draped in the usual sterile fashion. The RF catheter was placed on the sterile field, flushed and wiped down, prepared, and connected by a sterile cable. The patient was placed in supine position and local anesthesia was instilled in the skin overlying the access site. A skin incision was made overlying the identified and mapped great saphenous vein entry site. The vein was accessed using ultrasound guidance and the Seldinger technique, a guide wire was introduced through the needle, which was then exchanged over the guide wire for a 6F sheath, which was secured in place. The guide wire was removed and the sheath was flushed. The RF catheter was placed into the vein through the sheath and preferentially, imaging was used to place the catheter tip just inferior to the superficial epigastric vein to preserve normal physiological flow in that vein. Additionally, it was confirmed by ultrasound guidance that the catheter tip was also placed a minimum of 1.5cm distal to the saphenofemoral junction. After the RF catheter position was verified by ultrasound, tumescent anesthesia was infiltrated, under ultrasound guidance, precisely into the perivenous compartment along the entire length of vein from the entry site to the saphenofemoral junction until a halo of fluid was noted around the vein. The patient was then placed in supine position to further exsanguinate the superficial venous system. After RF catheter position was again confirmed with ultrasound imaging, and under direct external compression along the length of the heating element, RF energy was applied. The vein was segmentally ablated by heating a 8 cm segment and then indexing the catheter forward by 7.5 cm until the treatment length is completed. Device temperature was maintained at 120 plus or minus 5 degrees C with an initial power level of 40W dropping to below 20W for each treatment. Total vein length treated 32 cm Total cycles of RF 5. Repeat ultrasound of the saphenous vein was performed, confirming successful treatment. The catheter and sheath were withdrawn and hemostasis established with direct pressure. After assuring hemostasis, the skin incision over the saphenous vein was closed with a bandage and a compression wrap, and/ or graduated compression stocking was applied from the level of the foot to the most proximal level of the thigh. 53808 - Endovenous RF, 1st Vein All charges added?: Procedure code (CPT) selection complete Assessment & Plan Assessment & Plan (1) Varicose veins of left lower extremity with inflammation: Comment: 02/01/2024 - left great saphenous vein radiofrequency ablation Code(s): I83.12 - Varicose veins of left lower extremity with inflammation Category: Medical Plan: See op note Coding Level of Care Code Procedure Only Diagnoses Varicose veins of left lower extremity with inflammation I83.12 CPT Codes Details - Vascular 1: 53063 - Endovenous RF, 1st Vein ([id number])
== END 2024-02-01 10:36 | disposition home or self-care (01) ==
PROVIDERS: PCP Internal Medicine; Visit Provider Surgery Vascular Surgery
DX: I83.12 Varicose veins of left lower extremity with inflammation (principal)
CPT/HCPCS: 36475

== ENCOUNTER → 2024-02-01 09:29 | Outpatient (BNVA) | payer OTHER, SELFPAY | PROVIDERS: PCP Internal Medicine; Visit Provider Surgery Vascular Surgery | DX: I83.12 Varicose veins of left lower extremity with inflammation (principal) | CPT/HCPCS: 36475 ==

== ENCOUNTER 2024-02-04 10:28 | Outpatient (REF) | payer OTHER, SELFPAY ==
--- NOTE | ~2024-02-04 | US_ITS ---
EXAMINATION: TRIPLEX SCANNING OF LEFT LOWER EXTREMITY; SUPERFICIAL ULTRASOUND WITH DOPPLER OF LEFTLOWER EXTREMITY CLINICAL INFORMATION: Status post RF ablation of the medial duplicated left great saphenous vein. Originally performed on 02/01/2024. COMPARISON: 01/30/2023. TECHNIQUE: Color flow triplex imaging and compression Doppler were performed as well as superficial ultrasound with Doppler. FINDINGS: TRIPLEX SCANNING OF LEFT LOWER EXTREMITY: Respiratory variation, normal compression and augmented flow are noted throughout the lower extremity. The visualized common femoral vein, femoral vein, profunda femoral vein, popliteal vein and the calf veins show no evidence of deep venous thrombosis. There is no evidence of Kincaid's cyst. SUPERFICIAL ULTRASOUND WITH DOPPLER OF LEFT LOWER EXTREMITY: The left medial duplicated great saphenous vein is occluded from the access site to 1.6 cm before the sapheno-femoral junction. There is no extension of thrombus into the deep system. US/US venous duplex LE IMPRESSION: 1. Normal triplex scan of the left without evidence of deep venous thrombosis. 2. Excellent appearance status post ablation of the left medial duplicated great saphenous vein.
== END 2024-02-04 10:29 | disposition home or self-care (01) ==
LOC: HO.US 10:28
PROVIDERS: PCP Internal Medicine; Visit Provider Surgery Vascular Surgery
DX: M79.605 Pain in left leg (principal)
CPT/HCPCS: 93971

== ENCOUNTER 2024-03-06 11:37 | Outpatient (AMB) | payer OTHER, SELFPAY ==
--- NOTE | 2024-03-06 11:39 | MHC.OFFVIS ---
Intake Visit Reasons: 2 week follow up left gsv rfa Intake Note: Patient presents for 2 week follow up left gsv rfa. She does not have any post procedure issues but she does keep having issues with swelling. She has tried compression socks and water pills but nothing helps. When she walks her hands and feet are swollen. 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 Accompanied by: Self / Same As Patient Allergies Iodinated Contrast Media [IV CONTRAST] Allergy (Intermediate, Verified 03/06/24 11:42) HIVES amlodipine Allergy (Mild, Verified 03/06/24 11:42) Blister cefaclor [From Ceclor] Allergy (Mild, Verified 03/06/24 11:42) HIVES codeine [Codeine] Allergy (Mild, Verified 03/06/24 11:42) NAUSEA & VOMITING Sulfa (Sulfonamide Antibiotics) [Sulfa (Sulfonamides)] Allergy (Mild, Verified 03/06/24 11:42) NAUSEA & VOMITING, severe vomiting HPI HPI 2 week follow up left gsv rfa: Details: Very pleasant 64-year-old female presents for follow-up status post left great saphenous vein ablation. Reports that she has done well from the procedure but does not note a significant improvement in her overall swelling. It has been a source concern for her. She has had a prolonged trial of compression along with bilateral vein ablation is which have provided minimal relief. She now presents for routine follow-up. Of note postprocedure ultrasound was negative for DVT. COUNT INCLUDES [facility] Medical History SUZANNE on CPAP Anesthesia complication Nephrolithiasis HTN (hypertension) Right leg DVT Elevated cholesterol GERD (gastroesophageal reflux disease) Pulmonary embolism Asthma Shingles COVID Torn meniscus Ankle injuries Surgical History H/O sinus surgery History of appendectomy History of esophagogastroduodenoscopy (EGD) H/O colonoscopy Hx of lithotripsy History of cholecystectomy H/O: hysterectomy H/O splenectomy Family History Father CAD (coronary artery disease) Mother Asthma Alzheimer disease Social History Household Members: Spouse Housing: House Are you a primary animal caretaker to a significant other at home: No Do you presently have visiting nurse or other home services: No Alcohol intake: current Alcohol intake frequency: holidays/special occasions only Comment: all counts correct Patient Tobacco Use Status: Never used Tobacco service: No Current occupational status: employed Review of Systems Const All systems reviewed & are unremarkable except as noted in HPI and below Reports no additional complaints ENT Reports Normal hearing present Card Denies chest pain, Denies chest pain at rest, Denies chest pain with activity and Denies pedal edema Resp Denies cough GI Denies abdominal pain Musc Denies abnormal gait, Denies muscle cramps and Denies radiating pain into limb Skin/Breast Denies skin ulcer and Denies wounds Neuro Reports Normal hearing present and Denies abnormal gait Psych Reports no additional complaints Physical Exam Const General: cooperative, healthy appearing and comfortable Orientation/consciousness: oriented to person, oriented to place and oriented to time HEENT Head: Yes normal to inspection Neck Neck: Yes normal visual inspection Carotids: no bruits Chest Chest palpation & inspection: normal inspection of the chest Resp Effort & Inspection: normal respiratory effort and able to speak in complete sentences Auscultation: clear to auscultation bilaterally, no crackles, no rales, no rhonchi and no wheezes Cardio Rate: regular rate Rhythm: regular rhythm Heart sounds: S1 normal heart sound present and S2 normal heart sound present Bruits: no carotid bruits Peripheral pulses: Peripheral pulses 2+ throughout GI Inspection: Yes normal to inspection Skin Wounds: no wounds Hair: normal Neuro General: oriented to person, oriented to place and oriented to time Cranial nerves: Yes CN's II-XII intact bilaterally and Yes Normal hearing present Cognition (Neuro): normal cognition Motor exam (neuro): 5/5 motor strength present throughout Extrem Other: venous exam: +2 edema Right in cm: Thigh 61 Knee 52 Calf 48 Ankle 30 Left in cm: Thigh 58.5 Knee 51 Calf 48 Ankle 29.5 Hip/waist 116 General: No clubbing, No cyanosis and Yes edema Psych Appearance: grossly normal Mental Status: mental status grossly normal Speech and movement: Normal speech and movement present Assessment & Plan Assessment & Plan (1) Varicose veins of right lower extremity with inflammation: Comment: 07/27/2023 - right great saphenous vein radiofrequency ablation Code(s): I83.11 - Varicose veins of right lower extremity with inflammation Category: Medical Plan: Done well with right great saphenous vein ablation will treat for lymphedema (2) Lymphedema: Code(s): I89.0 - Lymphedema, not elsewhere classified Category: Medical Plan: In short the patient has late on sent lymphedema. The patient has been on conservative treatment for at least 3 months with minimal relief. Patient has tried 30 mm of mercury compression garments, elevation, exercise healthy diet and doing manual says self MLD to the best of their ability for over 4 weeks but with no significant relief. She has been compliant with the program but has provided minimal relief. In addition on physical we are noticing hyperpigmentation, lymphorrhea, and hyperplasia. It appears that she has stage 2 lymphedema. Patient has completed multiple forms of conservative therapy yet significant symptoms remain. Patient requires the use of a pneumatic compression device which we will assist in trying to have the patient obtain them. A pneumatic compression device will help reduce swelling and other lymphedema comorbidities. Thank you for allowing us to assist in this patient's care. (3) Varicose veins of left lower extremity with inflammation: Comment: 02/01/2024 - left great saphenous vein radiofrequency ablation Code(s): I83.12 - Varicose veins of left lower extremity with inflammation Category: Medical Plan: Done well from her left great saphenous vein ablation will treat for lymphedema Coding Level of Care Code Est Pt Level 4 (07493) Diagnoses Varicose veins of right lower extremity with inflammation I83.11 Lymphedema I89.0 Varicose veins of left lower extremity with inflammation I83.12
== END 2024-03-06 12:05 | disposition home or self-care (01) ==
PROVIDERS: PCP Internal Medicine; Visit Provider Surgery Vascular Surgery
DX: I83.11 Varicose veins of right lower extremity with inflammation (principal); I89.0 Lymphedema, not elsewhere classified; I83.12 Varicose veins of left lower extremity with inflammation
CPT/HCPCS: 99214

== ENCOUNTER → 2024-03-06 11:37 | Outpatient (BNVA) | payer OTHER, SELFPAY | PROVIDERS: PCP Internal Medicine; Visit Provider Surgery Vascular Surgery ==

== ENCOUNTER 2024-03-20 15:31 | Outpatient (AMB) | payer OTHER, SELFPAY ==
--- NOTE | 2024-03-20 15:33 | MHC.OFFVIS ---
Vital Signs 03/20/24 15:34 Height 5 ft 2 in Weight 194 lb 0.108 oz BMI 35.5 BP 137/82 Blood Pressure Location Lt brachial Position Sitting Pulse 88 Pulse Source Doppler Pulse Oximetry (%) 98 Oxygen Delivery Method Room Air Intake Visit Reasons: asthma Allergies Iodinated Contrast Media [IV CONTRAST] Allergy (Intermediate, Verified 03/06/24 11:42) HIVES amlodipine Allergy (Mild, Verified 03/06/24 11:42) Blister cefaclor [From Ceclor] Allergy (Mild, Verified 03/06/24 11:42) HIVES codeine [Codeine] Allergy (Mild, Verified 03/06/24 11:42) NAUSEA & VOMITING Sulfa (Sulfonamide Antibiotics) [Sulfa (Sulfonamides)] Allergy (Mild, Verified 03/06/24 11:42) NAUSEA & VOMITING, severe vomiting HPI HPI asthma: Details: 64-year-old lady, lifetime nonsmoker, with multiple first-degree relatives with?asthma, 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 She continues on Nucala, Advair, Spiriva, and levalbuterol MDI with reasonable control of her symptoms. Today she complains of seasonal allergic exacerbation. [facility] Medical History SUZANNE on CPAP Anesthesia complication Nephrolithiasis HTN (hypertension) Right leg DVT Elevated cholesterol GERD (gastroesophageal reflux disease) Pulmonary embolism Asthma Shingles COVID Torn meniscus Ankle injuries Surgical History H/O sinus surgery History of appendectomy History of esophagogastroduodenoscopy (EGD) H/O colonoscopy Hx of lithotripsy History of cholecystectomy H/O: hysterectomy H/O splenectomy Family History Father CAD (coronary artery disease) Mother Asthma Alzheimer disease Social History Household Members: Spouse Housing: House Are you a primary childcare teacher to a significant other at home: No Do you presently have visiting nurse or other home services: No Alcohol intake: current Alcohol intake frequency: holidays/special occasions only Comment: all counts correct Patient Tobacco Use Status: Never used Tobacco service: No Current occupational status: employed Review of Systems Const Denies daytime sleepiness, Denies excessive sweating, Denies fatigue, Denies fever(s), Denies lethargy, Denies malaise, Denies night sweats, Denies snoring and Denies weight loss Eyes Denies blurry vision and Denies itchy eyes ENT Reports nasal congestion, Reports post nasal drip, Denies sinus pain, Denies sinus pressure and Denies other ( Thrush) Card Denies chest pain, Denies pedal edema, Denies dyspnea, Denies orthopnea and Denies paroxysmal nocturnal dyspnea Resp Denies cough, Denies hemoptysis, Denies excessive phlegm production, Denies dyspnea, Denies snoring and Reports wheezing GI Denies abdominal pain and Denies heartburn Musc Denies myalgias, Denies arthralgias and Denies joint swelling Skin/Breast Denies rash Neuro Denies memory loss and Denies seizure-like activity Psych Denies abnormal sleep pattern, Denies anxiety and Denies memory loss Endo Denies excessive sweating, Denies fatigue and Denies heat intolerance Ernie/Lymph Denies easy bruising Aller/Immun Denies itchy eyes, Denies seasonal rhinorrhea and Reports wheezing Physical Exam Vital Signs: Last Vital Signs Pulse 88 03/20/24 15:34 BP 137/82 03/20/24 15:34 Pulse Ox 98 03/20/24 15:34 Oxygen Delivery Method Room Air 03/20/24 15:34 BMI result Body Mass Index 35.5 Const General: no acute distress and alert Nutritional Appearance: obese Orientation/consciousness: Other orientation findings ( oriented) HEENT Head: Yes atraumatic Eyes General: appearance normal, both eyes and all related structures Sclerae: sclerae normal EOM: EOMs intact bilaterally Neck Neck: Yes supple Lymphatic: no lymphadenopathy noted Resp Effort & Inspection: normal respiratory effort and no use of accessory muscles Auscultation: clear to auscultation bilaterally Cardio Rate: regular rate Rhythm: regular rhythm Heart sounds: no gallops, no murmurs and no rubs Skin General skin exam: other ( warm) Extrem General: No clubbing, No cyanosis and No edema Assessment & Plan Assessment & Plan (1) Severe persistent asthma: Code(s): J45.50 - Severe persistent asthma, uncomplicated Category: Medical Plan: Significantly improved control on Nucala, Advair, Spiriva, and levalbuterol. Continue current regimen. (2) Environmental allergies: Code(s): Z91.09 - Other allergy status, other than to drugs and biological substances Category: Medical Plan: Now with seasonal exacerbation, start medium dose prednisone taper. Medications: New prednisone Take four tabs daily for 14 days, then go down by 1 tab every 7 days 5 mg PO DIRECTED 98 tabs 0RF Coding Level of Care Code Est Pt Level 4 (78730) Diagnoses Severe persistent asthma J45.50 Environmental allergies Z91.09
[2024-03-20 15:34] VITALS: BP 137/82; PULSE 88; O2SAT 98; BMI 35.5
== END 2024-03-20 15:50 | disposition home or self-care (01) ==
PROVIDERS: PCP Internal Medicine; Visit Provider Internal Medicine Pulmonary Disease
DX: J45.50 Severe persistent asthma, uncomplicated (principal); Z91.09 Other allergy status, other than to drugs and biological substances
CPT/HCPCS: 99214

== ENCOUNTER → 2024-03-20 15:31 | Outpatient (BNVA) | payer OTHER, SELFPAY | PROVIDERS: PCP Internal Medicine; Visit Provider Internal Medicine Pulmonary Disease ==

== ENCOUNTER 2024-09-30 08:00 | Outpatient (AMB) | payer OTHER, SELFPAY ==
--- NOTE | 2024-09-30 08:06 | AM.OFFWIN_ITS ---
Intake Vital Signs 09/30/24 08:07 Height 5 ft 2 in Weight 198 lb BMI 36.2 BP 128/86 Blood Pressure Location Rt brachial Position Sitting Pulse 93 Pulse Source Pulse Oximeter Temp 98.2 F Temp Source Oral Pulse Oximetry (%) 96 Oxygen Delivery Method Room Air Intake Visit Reasons: EP Sore throat, cough, hives on forehead Intake Note: Pt presents to the office today for a c/o sore throat and cough x3 days and hives on forehead. Patient Tobacco Use Status: Never used Tobacco Allergies Iodinated Contrast Media [IV CONTRAST] Allergy (Intermediate, Verified 09/30/24 08:11) HIVES amlodipine Allergy (Mild, Verified 09/30/24 08:11) Blister cefaclor [From Ceclor] Allergy (Mild, Verified 09/30/24 08:11) HIVES codeine [Codeine] Allergy (Mild, Verified 09/30/24 08:11) NAUSEA & VOMITING Sulfa (Sulfonamide Antibiotics) [Sulfa (Sulfonamides)] Allergy (Mild, Verified 09/30/24 08:11) NAUSEA & VOMITING, severe vomiting HPI HPI Comments History of Present Illness Details History - The patient is a 64-year-old female pr esenting with rash and associated upper respiratory symptoms. - Symptoms include a cough, sore throat, headache, and generalized discomfort noted over the past 5 days. - Patient reports developing a rash that is localized to the forehead and neck, described as intensely itchy, and appearing alongside other symptoms. Denies new soaps, lotions, medications, foods. Denies difficulty breathing, feeling of throat tightness or closing up. - Although improvement is noted with att empted interventions, specific antihistamines such as Benadryl were not utilized during the course. - Admits to a history of asthma. - Reports no current fever, but experien binu of being alternately hot and cold were noted, with symptoms such as chills in the morning. Was wheezing but not today, no shortness of breath. - A previous COVID-19 test was conducted a week prior, results were not discussed, leading to consideration of another test. Physical Exam General: Cooperative, healthy appearing, comfortable and no acute distress Orientation/consciousness: Patient oriented x3 Limitations: No limitations Head: Normal to inspection Ears: Hearing grossly normal bilaterally, external ears normal and TM's normal bilaterally Nose: Normal external nose present, Normal nares present and No nasal discharge present Face and sinus: Normal facial exam and Yes maxillary sinuses tender Mouth: Normal oral and palatal mucosa present and moist mucous membranes Throat: Yes tonsils normal, Yes uvula midline. Posterior oropharynx erythema Eyes: Appearance normal, both eyes and all related structures Neck: Normal visual inspection Respiratory: Clear to auscultation bilaterally. Normal respiratory effort, able to speak in complete sentences, Actively coughing, no respiratory distress, not tachypneic, no tripod positioning and no use of accessory muscles Cardiovascular: Regular rate and rhythm. Normal S1 and S2 Skin: small area 2cm round of erythema on neck, flat, no warmth Neuro: Patient oriented x3 Extremities: Normal to inspection and Yes no clubbing, cyanosis or edema PFSH Medical History SUZANNE on CPAP Anesthesia complication Nephrolithiasis HTN (hypertension) Right leg DVT Elevated cholesterol GERD (gastroesophageal reflux disease) Pulmonary embolism Asthma Shingles COVID Torn meniscus Ankle injuries Surgical History H/O sinus surgery History of appendectomy History of esophagogastroduodenoscopy (EGD) H/O colonoscopy Hx of lithotripsy History of cholecystectomy H/O: hysterectomy H/O splenectomy Family History Father CAD (coronary artery disease) Mother Asthma Alzheimer disease Social History Household Members: Spouse Housing: House Are you a primary child care group leader to a significant other at home: No Do you presently have visiting nurse or other home services: No Alcohol intake: current Alcohol intake frequency: holidays/special occasions only Comment: all counts correct Patient Tobacco Use Status: Never used Tobacco service: No Current occupational status: employed Review of Systems Const All systems reviewed & are unremarkable except as noted in HPI and below Physical Exam Vital Signs: Last Vital Signs Temp 98.2 F 09/30/24 08:07 Pulse 93 09/30/24 08:07 BP 128/86 09/30/24 08:07 Pulse Ox 96 09/30/24 08:07 Oxygen Delivery Method Room Air 09/30/24 08:07 BMI result Body Mass Index 36.2 Results AMB Rapid Strep AMB Rapid Strep Negative Last Edit by Sachi Earl CMA on 09/30/24 08:21 Assessment & Plan Assessment & Plan (1) Acute viral syndrome: Code(s): B34.9 - Viral infection, unspecified Plan: The patient is suspected to have a viral exanthem with upper respiratory symptoms, and the possibility of a COVID-19 infection remains under consideration. A plan for potential viral testing was discussed, including a home COVID-19 test due to her symptoms. For symptomatic relief of the rash, suggestions of anti-itch creams, as well as Benadryl at night, were provided. Tessalon Perles was recommended for nighttime cough suppression to improve rest. The importance of symptomatic relief and monitoring symptoms was emphasized, along with patient education regarding the need to seek further care if her condition worsens or new symptoms arise. Patient was informed and verbally consented to the use of an ambient scribe for clinic note documentation during this visit Orders: Orders AMB Rapid Strep Screen Today Z13.9 - Encounter for screening, unspecified SARS-CoV2/FLU/RSV Today R09.89 - Other specified symptoms and signs involving the circulatory and respiratory systems Medications: New benzonatate 200 mg PO BEDTIME PRN 10 caps 0RF cough Coding Level of Care Code Est Pt Level 3 (67730) Diagnoses Acute viral syndrome B34.9
[2024-09-30 08:07] VITALS: BP 128/86; PULSE 93; TEMP 36.8; O2SAT 96; BMI 36.2
== END 2024-09-30 08:34 | disposition home or self-care (01) ==
PROVIDERS: PCP Internal Medicine; Visit Provider Physician Assistant
DX: Z13.9 Encounter for screening, unspecified (principal); B34.9 Viral infection, unspecified

== ENCOUNTER 2024-09-30 08:00 | Outpatient (REF) | payer OTHER, SELFPAY ==
[2024-09-30 11:04] LABS: Influenza A PCR NEGATIVE (Negative); Influenza B PCR NEGATIVE (Negative); Resp Syncy Virus RNA Qual PCR NEGATIVE (Negative); SARS COV2 PCR INHOUSE NEGATIVE (Negative)
== END 2024-09-30 08:01 | disposition home or self-care (01) ==
LOC: HO.LAB 08:00
PROVIDERS: Physician Assistant; PCP Internal Medicine
DX: B34.9 Viral infection, unspecified (principal); R09.89 Other specified symptoms and signs involving the circulatory and respiratory systems
CPT/HCPCS: 0241U; 87880

== ENCOUNTER 2024-10-17 09:38 | Outpatient (REF) | payer OTHER, SELFPAY ==
[2024-10-17 13:30] LABS: MANUAL DIFF FLAG NO
[2024-10-17 13:43] LABS: Basophils Absolute Auto 0.1 X10*3/uL (0.0-0.2); Basophils Percent Auto 0.9 % (0-2); Eosinophils Absolute Auto 0.2 X10*3/uL (0.0-0.4); Eosinophils Percent Auto 1.4 % (0-4); Hemoglobin 13.8 g/dl (12.0-16.0); Imm Gran Abs Auto 0.03 X10*3/uL (0.00-0.03); Imm Gran Pct Auto 0.3 % (0.0-0.4); Lymphocytes Absolute Auto 3.7 X10*3/uL (1.2-4.9); Mean Corpuscular HGB Conc 32.9 g/dl (31.0-35.0); Mean Corpuscular Hemoglobin 30.1 pg (27.0-33.0); Mean Corpuscular Volume 91.5 fL (80.0-98.0); Monocytes Absolute Auto 0.9 X10*3/uL (0.1-1.2); Monocytes Percent Auto 8.1 % (2-11); Neutrophils Absolute Auto 6.1 x10*3/uL (2.0-8.3); Neutrophils Percent Auto 55.3 % (45-73); Platelet Count 577 X10*3/uL (160-400); Red Blood Count 4.59 X10*6/uL (4.20-5.50); Red Cell Distribution Width 14.6 % (11.0-16.0)
[2024-10-17 14:18] LABS: Estimated Average Glucose 131 mg/dL; Hemoglobin A1C 161.6846 umol/L; Hemoglobin A1c % 6.2 % (<6.0); Total Hemoglobin (HGBA1C) 3662.4355 umol/L
[2024-10-17 14:36] LABS: Vitamin B12 417 pg/mL (200-900)
[2024-10-17 14:44] LABS: Alanine Aminotransferase 40 U/L (0-31); Albumin Level 4.3 g/dL (3.5-5.0); Alkaline Phosphatase 99 U/L (39-117); Anion Gap 16 (12-20); Aspartate Amino Transferase 31 U/L (5-31); Bilirubin Total 0.4 mg/dL (0.0-1.0); Blood Urea Nitrogen 11 mg/dL (9-16); Calcium 9.4 mg/dL (8.4-10.2); Carbon Dioxide 26 mmol/L (22-29); Chloride 104 mmol/L (96-108); Cholesterol 170 mg/dL (<200); Estimated Glomerular Filt Rate > 60; Glucose Random 78 mg/dL (60-115); HDL Cholesterol 49 mg/dL (>40); LDL Cholesterol Calculated 92 mg/dL (<100); Sodium 142 mmol/L (135-145); Total Protein 7.8 g/dL (6.5-8.0); Triglycerides 149 mg/dL (<150)
== END 2024-10-17 09:39 | disposition home or self-care (01) ==
LOC: HO.HMGCLDS 09:38
PROVIDERS: PCP Internal Medicine; Visit Provider Internal Medicine
DX: I10 Essential (primary) hypertension (principal); Z13.1 Encounter for screening for diabetes mellitus; J45.909 Unspecified asthma, uncomplicated
CPT/HCPCS: 36415; 80053; 80061; 82607; 83036; 85025

== ENCOUNTER 2024-10-24 08:22 | Outpatient (AMB) | payer OTHER, SELFPAY ==
[2024-10-24 08:25] VITALS: BP 140/88; PULSE 90; BMI 36.3
--- NOTE | 2024-10-24 08:25 | MHC.OFFVIS ---
Vital Signs 10/24/24 08:25 Height 5 ft 2 in Weight 198 lb 10.184 oz BMI 36.3 BP 140/88 H Blood Pressure Location Lt brachial Position Sitting Pulse 90 Intake Visit Reasons: f/up-km pt-Leg Edema Statistics Professor Required: No Accompanied by: mother Allergies Iodinated Contrast Media [IV CONTRAST] Allergy (Intermediate, Verified 10/24/24 09:38) HIVES amlodipine Allergy (Mild, Verified 10/24/24 09:38) Blister cefaclor [From Ceclor] Allergy (Mild, Verified 10/24/24 09:38) HIVES codeine [Codeine] Allergy (Mild, Verified 10/24/24 09:38) NAUSEA & VOMITING Sulfa (Sulfonamide Antibiotics) [Sulfa (Sulfonamides)] Allergy (Mild, Verified 10/24/24 09:38) NAUSEA & VOMITING, severe vomiting Medication List - Last Reconciled 10/24/24 by Betzy Daniels EDGER SAW OPERATOR-C apixaban (Eliquis) 5 mg PO BID atorvastatin 10 mg PO DAILY diltiazem HCl CD 240 mg PO DAILY fluoxetine 20 mg PO DAILY fluticasone propion-salmeterol 230-21 mcg/actuation (Advair HFA) 2 puffs inhalation Q12H 30 days furosemide 40 mg PO DAILY levalbuterol tartrate 45 mcg/actuation 2 puffs inhalation Q4-6H mepolizumab (Nucala) 100 mg subcut Q4W nortriptyline 10 mg PO QID omeprazole 20 mg PO BID tiotropium bromide 2.5 mcg/actuation (Spiriva Respimat) 2 puffs inhalation QAM Zepbound (tirzepatide (weight loss)) 2.5 mg (0.5 mL) subcut QWEEK NS HPI HPI f/up-km pt-Leg Edema: Details: Sally is a 64-year-old female with past medical history of hypertension, hyperlipidemia, prediabetes, sleep apnea, asthma, venous insufficiency status post GSV ablation bilaterally, who presents for follow-up. Today she reports that she has been noticing some foot and ankle edema. She said this problem was present in the past and it went away after her vein ablations. In the last year she believes she has gained 25-30 lb. She has also been more sedentary recently. She avoids salt in her diet. She has been trying to drink more fluid to stay healthy. No chest discomfort at rest or with activity. Her asthma has been stable. No concerning shortness of breath, PND, orthopnea. No heart palpitations, lightheadedness, presyncope, syncope. 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 She has not been exercising. Taking all meds as directed including Lasix 40 mg daily. [facility] Medical History SUZANNE on CPAP Anesthesia complication Nephrolithiasis HTN (hypertension) Right leg DVT Elevated cholesterol GERD (gastroesophageal reflux disease) Pulmonary embolism Asthma Shingles COVID Torn meniscus Ankle injuries Surgical History H/O sinus surgery History of appendectomy History of esophagogastroduodenoscopy (EGD) H/O colonoscopy Hx of lithotripsy History of cholecystectomy H/O: hysterectomy H/O splenectomy Family History Father CAD (coronary artery disease) Mother Asthma Alzheimer disease Social History Household Members: Spouse Housing: House Are you a primary physician assistant primary care to a significant other at home: No Do you presently have visiting nurse or other home services: No Alcohol intake: current Alcohol intake frequency: holidays/special occasions only Comment: all counts correct Patient Tobacco Use Status: Never used Tobacco e-Cigarette/Vaping Use: Never Used service: No Current occupational status: employed Cognitive needs: No Hearing needs: No Vision needs: Yes (rx glasses) Review of Systems Const All systems reviewed & are unremarkable except as noted in HPI and below Denies chills, Denies fatigue, Denies fever(s), Denies weight gain and Denies weight loss ENT Denies dizziness Card Denies chest pain, Reports pedal edema, Reports leg edema, Denies lightheadedness, Denies palpitations, Reports dyspnea on exertion, Denies orthopnea and Denies other Resp Denies cough and Reports dyspnea on exertion GI Denies hematochezia and Denies change in stool character Musc Denies abnormal gait, Denies muscle weakness, Denies numbness, Denies radiating pain into limb and Denies tingling Neuro Denies abnormal gait, Denies dizziness, Denies numbness and Denies tingling Endo Denies fatigue and Denies palpitations Physical Exam Vital Signs: Last Vital Signs Pulse 90 10/24/24 08:25 BP 140/88 H 10/24/24 08:25 BMI result Body Mass Index 36.3 Const General: cooperative, healthy appearing, comfortable and no acute distress Orientation/consciousness: patient oriented x3 Neck Neck: Yes normal visual inspection Resp Effort & Inspection: normal respiratory effort Auscultation: clear to auscultation bilaterally, no rales, no rhonchi and no wheezes Cardio Rate: regular rate Rhythm: regular rhythm Heart sounds: S1 normal heart sound present, S2 normal heart sound present, no gallops, no murmurs and no rubs Peripheral pulses: Peripheral pulses 2+ throughout Neuro General: patient oriented x3 Extrem Other: sock markings at ankle General: Yes normal to inspection Psych Appearance: grossly normal Mental Status: mental status grossly normal Speech and movement: Normal speech and movement present Office Procedures EKG Details: Today, read by me, normal sinus rhythm, nonspecific ST abn, rate 90, Qtc 479ms [id number], Complete Assessment & Plan Assessment & Plan (1) Lower extremity edema: Code(s): R60.0 - Localized edema Category: Medical Plan: Reports of newer lower extremity edema which is likely multifactorial with her history of GSV ablations, current sedentary lifestyle, recent weight gain, fluid intake excess. She does not appear to have signs of heart failure on examination. Minimal edema noted on examination. EKG today shows normal sinus rhythm and nonspecific ST abnormality, rate 90. Last echocardiogram done 03/29/2022 showed EF 55-60%, diastolic function normal. Will have her continue on Lasix 40 mg daily. She can take an additional 20 mg if needed for her edema. Reviewed fluid intake reduction and low-salt diet. Will update echocardiogram to assess for any structural abnormalities. Use of compression stockings reviewed. Increase physical activity as tolerated. Instructed to call if this symptom is worsening. At this time will plan follow-up in 6 months, sooner if needed. (2) HTN (hypertension): Code(s): I10 - Essential (primary) hypertension Category: Medical Plan: Blood pressure goal less than 130/80. Well controlled at this time. Continue diltiazem and Lasix. (3) SUZANNE on CPAP: Code(s): G47.33 - Obstructive sleep apnea (adult) (pediatric) Category: Medical Plan: Compliant Plan Time spent on chart review, documentation, interview and assessment Orders: Orders CA echo transthoracic complete Today G47.33 - Obstructive sleep apnea (adult) (pediatric), I10 - Essential (primary) hypertension, R60.0 - Localized edema Coding Level of Care Code Est Pt Level 4 (01083) Complex EM visit Add On G2211 Diagnoses Lower extremity edema R60.0 HTN (hypertension) I10 SUZANNE on CPAP G47.33 CPT Codes EKG - CPT: [id number]-[id number], Complete ([id number]) Time Spent (min) 30
== END 2024-10-24 09:10 | disposition home or self-care (01) ==
LOC: HO.HCS 08:23
PROVIDERS: PCP Internal Medicine; Visit Provider Nurse Practitioner Family
DX: R60.0 Localized edema (principal); I10 Essential (primary) hypertension; G47.33 Obstructive sleep apnea (adult) (pediatric)
CPT/HCPCS: 93010; 99214

== ENCOUNTER → 2024-10-24 08:22 | Outpatient (BNVA) | payer OTHER, SELFPAY | PROVIDERS: PCP Internal Medicine; Visit Provider Nurse Practitioner Family | DX: R73.03 Prediabetes (principal); G47.33 Obstructive sleep apnea (adult) (pediatric); I10 Essential (primary) hypertension; K21.9 Gastro-esophageal reflux disease without esophagitis; R13.10 Dysphagia, unspecified; R60.0 Localized edema; Z86.19 Personal history of other infectious and parasitic diseases; Z86.711 Personal history of pulmonary embolism; Z79.01 Long term (current) use of anticoagulants; Z79.899 Other long term (current) drug therapy; Z99.89 Dependence on other enabling machines and devices | CPT/HCPCS: 93005; 96127 ==

== ENCOUNTER 2024-10-24 09:17 | Outpatient (AMB) | payer OTHER, SELFPAY ==
[2024-10-24 09:38] VITALS: BP 126/80; PULSE 93; TEMP 36.6; O2SAT 96; BMI 36.2
--- NOTE | 2024-10-24 09:38 | A.OFFPC_ITS ---
Vital Signs 10/24/24 09:38 Height 5 ft 2 in Weight 198 lb BMI 36.2 BP 126/80 Blood Pressure Location Rt brachial Position Sitting Pulse 93 Pulse Source Auscultation Temp 97.8 F Temp Source Axillary Pulse Oximetry (%) 96 Oxygen Delivery Method Room Air Intake Visit Reasons: Routine Funeral Arrangement Director Required: No Accompanied by: Self / Same As Patient Allergies Iodinated Contrast Media [IV CONTRAST] Allergy (Intermediate, Verified 10/24/24 09:38) HIVES amlodipine Allergy (Mild, Verified 10/24/24 09:38) Blister cefaclor [From Ceclor] Allergy (Mild, Verified 10/24/24 09:38) HIVES codeine [Codeine] Allergy (Mild, Verified 10/24/24 09:38) NAUSEA & VOMITING Sulfa (Sulfonamide Antibiotics) [Sulfa (Sulfonamides)] Allergy (Mild, Verified 10/24/24 09:38) NAUSEA & VOMITING, severe vomiting Tobacco use date assessed: 10/24/24 Dental Screening Dental Screen Date: 10/24/24 Did you have a dental visit in the last 12 months?: Yes Did you have a dental problem in the last 6 months where you did not have access to dental care?: No HPI HPI Comments History of Present Illness Details The patient is a 64 year old female with past medical history of GERD, htn, hld, osteopenia, suzanne, h/o PE presenting for follow up. last seen July by PCP CV: on diltiazem, eliquis, atrovastatin, furosemide. [place] [place] GI: Upcoming fluoroscopy. On omeprazole 20 BID. Referral placed today for GERD, dysphagia/globus Frequent RICKETTS: Dr Bentley Follows with Dr Elliott for sleep apnea and asthma ROS CONSTITUTIONAL: Denies weight loss, fever and chills. HEENT: Denies changes in vision and hearing. RESPIRATORY: Denies SOB and cough. CV: Denies palpitations and CP GI: Denies abdominal pain, nausea, vomiting and diarrhea. : Denies dysuria and urinary frequency. MSK: Denies new myalgia and joint pain. SKIN: Denies rash and pruritus. NEUROLOGICAL: Denies headache PSYCHIATRIC: Denies recent changes in mood. PHYSICAL EXAM: GENERAL: Alert and oriented x 3. NAD EYES: EOMI. Anicteric. HENT: Moist mucous membranes. No scleral icterus. No cervical lymphadenopathy. LUNGS: Clear to auscultation bilaterally. CARDIOVASCULAR: Regular rate and rhythm. No murmur. No JVD. ABDOMEN: Soft, non-tender +bs EXTREMITIES: No edema. Non-tender. SKIN: No rashes or lesions. Warm. NEUROLOGIC: No focal neurological deficits. CN II-XII grossly intact PSYCHIATRIC: Cooperative. Appropriate mood and affect [facility] Medical History SUZANNE on CPAP Anesthesia complication Nephrolithiasis HTN (hypertension) Right leg DVT Elevated cholesterol GERD (gastroesophageal reflux disease) Pulmonary embolism Asthma Shingles COVID Torn meniscus Ankle injuries Surgical History H/O sinus surgery History of appendectomy History of esophagogastroduodenoscopy (EGD) H/O colonoscopy Hx of lithotripsy History of cholecystectomy H/O: hysterectomy H/O splenectomy Family History Father CAD (coronary artery disease) Mother Asthma Alzheimer disease Social History Household Members: Spouse Housing: House Are you a primary nurse care manager to a significant other at home: No Do you presently have visiting nurse or other home services: No Alcohol intake: current Alcohol intake frequency: holidays/special occasions only Comment: all counts correct Patient Tobacco Use Status: Never used Tobacco e-Cigarette/Vaping Use: Never Used service: No Current occupational status: employed Cognitive needs: No Hearing needs: No Vision needs: Yes (rx glasses) Questionnaire PHQ-9 Over the last 2 weeks, how often have you been bothered by any of the following problems? 1. Little interest or pleasure in doing things: not at all 2. Feeling down, depressed, or hopeless: several days 3. Trouble falling or staying asleep, or sleeping too much: not at all 4. Feeling tired or having little energy: not at all 5. Poor appetite or overeating: not at all 6. Feeling bad about yourself - or that you are a failure or have let yourself or your family down: not at all 7. Trouble concentrating on things, such as reading the newspaper or watching television: not at all 8. Moving or speaking so slowly that other people could have noticed. Or the opposite - being so fidgety or restless that you have been moving around a lot more than usual: not at all 9. Thoughts that you would be better off or of hurting yourself in some way: not at all Total score: 1 Depression Screening Interpretation: Negative Depression Screening Done: Yes 66157 - PHQ-9 Billing: Yes Source: Developed by Drs. Huey Reinoso, Nora Bennett, Claude Campos and colleagues, with an educational simon from [employer]. Thrive Questionnaire Date Thrive assessed: 10/24/24 I am a: Patient Within the past 12 months, did the food you bought not last and you didn't have the money to get more?: Never true Within the past 12 months, did you worry whether your food would run out before you got money to buy more?: Never true Do you have trouble paying for medicines?: No Do you have trouble getting transportation to medical appointments?: No Do you have trouble paying your heating and electricity bill?: No Do you have trouble taking care of your child, family member or friend?: No Do you have trouble with day-to-day activities such as bathing, preparing meals, shopping, managing finances, etc.?: No Are you currently unemployed and looking for a job?: No Are you interested in more education?: No THRIVE Score: 0 AUDIT C Alcohol Use Questionnaire (AUDIT-C) 1. How often do you have a drink containing alcohol?: Monthly or less 2. How many drinks containing alcohol do you have on a typical day when you are drinking?: 1 or 2 3. How often do you have six or more drinks on one occasion?: Less than monthly Total Score: 2 ROSSANA-7 AMB Questionnaire ROSSANA-7 Date ROSSANA - 7 assessed: 10/24/24 Feeling nervous, anxious, or on edge: 0 = Not at all Not being able to stop or control worryin = Not at all Worrying too much about different things: 0 = Not at all Trouble relaxin = Not at all Being so restless that it is hard to sit still: 0 = Not at all Becoming easily annoyed or irritable: 0 = Not at all Feeling afraid as if something awful might happen: 0 = Not at all Total ROSSANA-7 score (0-4 normal; 5-9 mild; 10-14 moderate; 15-21 severe): 0 Source: Developed by Drs. Huey Reinoso, Nora Bennett, Claude Campos and colleagues, with an educational simon from [employer]. Physical exam (Primary Care) Vital Signs: Last Vital Signs Temp 97.8 F 10/24/24 09:38 Pulse 93 10/24/24 09:38 BP 126/80 10/24/24 09:38 Pulse Ox 96 10/24/24 09:38 Oxygen Delivery Method Room Air 10/24/24 09:38 BMI result Body Mass Index 36.2 Tobacco/Smoking Status: Tobacco use Status Tobacco use date assessed 10/24/24 10/24/24 09:40 Patient Tobacco Use Status Never used Tobacco 10/24/24 09:40 e-Cigarette/Vaping Use Never Used 10/24/24 09:40 PHQ-9: PHQ-9 Score PHQ-9: Total score 1 10/24/24 10:20 Depression Screening Interpretation: Negative Thrive Assessment: Date of Thrive Assessment Date Thrive assessed 10/24/24 10/24/24 09:40 Coding Level of Care Code New Pt Level 4 (70315) Complex EM visit Add On G2211 Diagnoses Prediabetes R73.03 SUZANNE on CPAP G47.33 Primary hypertension I10 Hypertension type: primary hypertension History of Helicobacter pylori infection Z86.19 Gastroesophageal reflux disease, unspecified whether esophagitis present K21.9 Esophagitis presence: esophagitis presence not specified Additional Codes PHQ-9 - 00522 - PHQ-9 Billing: Yes ([id number]) Assessment & Plan Assessment & Plan (1) Prediabetes: Code(s): R73.03 - Prediabetes Category: Medical (2) SUZANNE on CPAP: Code(s): G47.33 - Obstructive sleep apnea (adult) (pediatric) Category: Medical (3) HTN (hypertension): Code(s): I10 - Essential (primary) hypertension Category: Medical Qualifiers: Hypertension type: primary hypertension Qualified Code(s): I10 - Essential (primary) hypertension (4) History of Helicobacter pylori infection: Code(s): Z86.19 - Personal history of other infectious and parasitic diseases Category: Medical (5) GERD (gastroesophageal reflux disease): Code(s): K21.9 - Gastro-esophageal reflux disease without esophagitis Category: Medical Qualifiers: Esophagitis presence: esophagitis presence not specified Qualified Code(s): K21.9 - Gastro-esophageal reflux disease without esophagitis Plan 64 year old female presenting to [facility] care Past medical, surgical, social and family history reviewed BP controlled. continue cardiology follow up Dysphagia/globus, PPI dependence-referral GI, ENT Orders: Orders US renal BI Today Z87.442 - Personal history of urinary calculi Complete Blood Count Auto Diff Today I10 - Essential (primary) hypertension, R73.03 - Prediabetes Lipid Panel Today I10 - Essential (primary) hypertension, R73.03 - Prediabetes TSH reflex Free T4 Today I10 - Essential (primary) hypertension, R73.03 - Prediabetes H pylori Ag Stool Today Z86.19 - Personal history of other infectious and parasitic diseases Comprehensive Met. Panel Today I10 - Essential (primary) hypertension, R73.03 - Prediabetes Hemoglobin A1c Today I10 - Essential (primary) hypertension, R73.03 - Prediabetes Referrals Gastroenterology Referral R13.10 - Dysphagia, unspecified Ear/Nose/Throat Referral R13.10 - Dysphagia, unspecified Medications: New Zepbound (tirzepatide (weight loss)) for 4 weeks 2.5 mg (0.5 mL) subcut QWEEK 2 mL 0RF NS G47.33 - Obstructive sleep apnea (adult) (pediatric), R73.03 - Prediabetes
== END 2024-10-24 10:39 | disposition home or self-care (01) ==
LOC: HO.HMCHD 09:17
PROVIDERS: PCP Internal Medicine; Visit Provider Internal Medicine
DX: R73.03 Prediabetes (principal); G47.33 Obstructive sleep apnea (adult) (pediatric); I10 Essential (primary) hypertension; Z86.19 Personal history of other infectious and parasitic diseases; K21.9 Gastro-esophageal reflux disease without esophagitis

== ENCOUNTER 2024-10-31 09:35 | Outpatient (REF) | payer OTHER, SELFPAY ==
--- NOTE | ~2024-10-31 | FL_ITS ---
EXAMINATION: XR FLUOROSCOPY UPPER GI WITH AIR CLINICAL INFORMATION: GERD COMPARISON: None available. TECHNIQUE: Routine upper GI contrast study was performed in upright and lying position. FINDINGS: Following oral administration of thick barium and effervescent granules is normal propagation bolus from the oral cavity through the pharynx, esophagus into stomach without any acute evidence of obstruction, narrowing or stricture. There is no extrinsic compression seen. On placing patient in supine and prone lying the course, caliber and peristalsis of the stomach, duodenal bulb and the CBD is normal. The mucosal pattern of stomach and the duodenum is normal. Incidentally noted is a moderate size gastroesophageal reflux without hiatal hernia. FLUOROSCOPY TIME: 1 minute 58 seconds DOSE AREA PRODUCT: 2112 uGy-m2 (microgray-meter squared) FL/FL upper GI w air IMPRESSION: Moderate size gastroesophageal reflux without hiatal hernia. Electronically signed by: Elias Rob MD 10/31/2024 01:16 PM EDT
== END 2024-10-31 09:36 | disposition home or self-care (01) ==
LOC: HO.XRAY 09:35
PROVIDERS: Visit Provider Internal Medicine
DX: K21.9 Gastro-esophageal reflux disease without esophagitis (principal)
CPT/HCPCS: 74246

== ENCOUNTER → 2024-10-31 09:39 | Outpatient (BNV) | payer OTHER, SELFPAY | PROVIDERS: Visit Provider Radiology Diagnostic Radiology | DX: K21.9 Gastro-esophageal reflux disease without esophagitis (principal) | CPT/HCPCS: 74246 ==

== ENCOUNTER 2024-11-07 09:55 | Outpatient (REF) | payer OTHER, SELFPAY ==
--- NOTE | ~2024-11-07 | MM_ITS ---
EXAMINATION: MM SCREENING DIGITAL BREAST TOMOSYNTHESIS, BILATERAL CLINICAL INFORMATION: Screening. Asymptomatic. COMPARISON: Mammography: Comparison is made with available priors TECHNIQUE: Digital breast mammography with tomosynthesis is performed in both the craniocaudal and mediolateral oblique views along with computer-aided detection (CAD). FINDINGS: The breasts are heterogeneously dense, which may obscure small masses (ACR BI-RADS breast composition Category c). There are no significant masses, abnormal calcifications, or other abnormalities. MM/MM tomosynthesis screening BI IMPRESSION: No mammographic evidence of malignancy. ASSESSMENT: BI-RADS BI-RADS 1 - Negative RECOMMENDATION: Routine annual mammography screening. 1 year F/U This examination should not preclude the clinical evaluation of a suspicious palpable abnormality. This patient's information was entered into a reminder system with a target due date for their next mammogram. Electronically signed by: Hoa Taylor DO 11/15/2024 09:13 PM EDT
[2024-11-07 13:27] LABS: MANUAL DIFF FLAG NO
[2024-11-07 13:32] LABS: Basophils Absolute Auto 0.1 X10*3/uL (0.0-0.2); Basophils Percent Auto 0.8 % (0-2); Eosinophils Absolute Auto 0.1 X10*3/uL (0.0-0.4); Eosinophils Percent Auto 1.1 % (0-4); Hematocrit 41.5 % (37.0-47.0); Hemoglobin 13.9 g/dl (12.0-16.0); Imm Gran Abs Auto 0.05 X10*3/uL (0.00-0.03); Imm Gran Pct Auto 0.4 % (0.0-0.4); Lymphocytes Absolute Auto 4.1 X10*3/uL (1.2-4.9); Lymphocytes Percent Auto 33.4 % (20-40); Mean Corpuscular HGB Conc 33.5 g/dl (31.0-35.0); Mean Corpuscular Hemoglobin 30.5 pg (27.0-33.0); Mean Platelet Volume 9.9 fL (9.4-12.3); Monocytes Absolute Auto 0.9 X10*3/uL (0.1-1.2); Monocytes Percent Auto 7.4 % (2-11); Neutrophils Percent Auto 56.9 % (45-73); Platelet Count 565 X10*3/uL (160-400); Red Blood Count 4.56 X10*6/uL (4.20-5.50); Red Cell Distribution Width 14.4 % (11.0-16.0); White Blood Count 12.4 X10*3/uL (4.8-10.8)
[2024-11-07 13:47] LABS: Estimated Average Glucose 126 mg/dL; Hemoglobin A1C 155.0494 umol/L; Total Hemoglobin (HGBA1C) 3686.2702 umol/L
[2024-11-07 14:00] LABS: Alanine Aminotransferase 32 U/L (0-31); Albumin Level 4.2 g/dL (3.5-5.0); Alkaline Phosphatase 100 U/L (39-117); Anion Gap 11 (12-20); Aspartate Amino Transferase 25 U/L (5-31); Bilirubin Total 0.4 mg/dL (0.0-1.0); Blood Urea Nitrogen 11 mg/dL (9-16); Calcium 9.4 mg/dL (8.4-10.2); Carbon Dioxide 28 mmol/L (22-29); Chloride 103 mmol/L (96-108); Cholesterol 169 mg/dL (<200); Estimated Glomerular Filt Rate > 60; Glucose Random 120 mg/dL (60-115); HDL Cholesterol 50 mg/dL (>40); LDL Cholesterol Calculated 90 mg/dL (<100); Potassium 3.7 mmol/L (3.3-5.1); Sodium 138 mmol/L (135-145); Total Protein 7.7 g/dL (6.5-8.0); Triglycerides 145 mg/dL (<150)
[2024-11-07 14:18] LABS: TSH reflex Free T4 1.18 uIU/mL (0.32-4.0)
== END 2024-11-07 09:56 | disposition home or self-care (01) ==
LOC: HO.MAMMO 09:55
PROVIDERS: PCP Internal Medicine; Referring Provider Internal Medicine; Visit Provider Internal Medicine
DX: R73.03 Prediabetes (principal); I10 Essential (primary) hypertension; Z12.31 Encounter for screening mammogram for malignant neoplasm of breast
CPT/HCPCS: 36415; 77063; 77067; 80053; 80061; 83036; 84443; 85025

== ENCOUNTER → 2024-11-07 16:00 | Outpatient (BNV) | payer OTHER, SELFPAY | PROVIDERS: PCP Internal Medicine; Referring Provider Internal Medicine; Visit Provider Internal Medicine | DX: Z12.31 Encounter for screening mammogram for malignant neoplasm of breast (principal) | CPT/HCPCS: 77063; 77067 ==

== ENCOUNTER 2024-11-12 11:21 | Outpatient (REF) | payer OTHER, SELFPAY ==
--- NOTE | ~2024-11-12 | US_ITS ---
EXAMINATION: US KIDNEY BILATERAL HISTORY: Z87.442 - Personal history of urinary calculi TECHNIQUE: Real-time grayscale ultrasound imaging of the kidneys was performed and images were reviewed. COMPARISON: Comparison is made with the prior examination dated 08/10/2020. FINDINGS: Right kidney: The right kidney measures 9.1 x 4.7 x 5.3 cm. Renal parenchymal echotexture and thickness are normal. There are no masses. There is no hydronephrosis or renal calculi. Left Kidney: The left kidney measures 10.7 x 5.2 x 5.6 cm. Renal parenchymal echotexture and thickness are normal. There are no masses. There is no hydronephrosis or renal calculi. US/US renal BI IMPRESSION: Unremarkable renal ultrasound. Electronically signed by: Huey Enamorado MD 11/13/2024 07:08 AM EDT
[2024-11-12 14:01] LABS: Anion Gap 14 (12-20); Blood Urea Nitrogen 12 mg/dL (9-16); Calcium 9.4 mg/dL (8.4-10.2); Carbon Dioxide 25 mmol/L (22-29); Chloride 104 mmol/L (96-108); Estimated Glomerular Filt Rate 59; Glucose Random 157 mg/dL (60-115); Potassium 3.7 mmol/L (3.3-5.1); Sodium 139 mmol/L (135-145)
[2024-11-12 14:14] LABS: Erythrocyte Sedimentation Rate 25 MM/HR (0-20)
[2024-11-13 05:38] LABS: Lyme Abs Screen <0.90 index
== END 2024-11-12 11:22 | disposition home or self-care (01) ==
LOC: HO.HMGCX 11:21
PROVIDERS: PCP Internal Medicine; Referring Provider Psychiatry & Neurology Neurology; Visit Provider Internal Medicine
DX: Z87.442 Personal history of urinary calculi (principal); G93.40 Encephalopathy, unspecified; R51.9 Headache, unspecified
CPT/HCPCS: 36415; 76775; 80048; 85652; 86617; 86618

== ENCOUNTER → 2024-11-12 11:25 | Outpatient (BNV) | payer OTHER, SELFPAY | PROVIDERS: PCP Internal Medicine; Referring Provider Psychiatry & Neurology Neurology; Visit Provider Radiology Diagnostic Radiology | DX: Z87.442 Personal history of urinary calculi (principal) | CPT/HCPCS: 76775 ==

== ENCOUNTER → 2024-11-17 07:46 | Outpatient (REF) | payer OTHER, SELFPAY ==
--- NOTE | 2024-11-17 07:49 | CA_ITS ---
Transthoracic Echocardiogram Patient (Last, First, Middle): Sally Barr A Gender: Female Date of : 1960 Age: 64 Procedure Date: 11/17/2024 Procedure Type: Transthoracic Echocardiogram Location: OP Height: 157.48 cm Weight: 89.81 kg BSA: 1.90 m2 Heart Rate: 75 bpm BP: 126 / 74 mmHg Yard Switch Operator: SB Referring MD: Betzy Daniels DEPALLETIZER OPERATORParamC Symptoms: R60.0 - Localized edema Study Quality: Adequate w contrast ECG Rhythm: Sinus Conclusions: - The left ventricular systolic function is normal. The visually estimated ejection fraction is between 60-65%. - No obvious valvular pathology seen on this study. Findings Procedure Information Contrast agent, definity, is being given per protocol without apparent complications. Left Ventricle Normal left ventricular cavity size. The left ventricular systolic function is normal. The visually estimated ejection fraction is between 60-65%. There is no evidence of regional wall motion abnormalities. Diastolic function is normal for age. There is mild septal asymmetric hypertrophy. Right Ventricle Normal right ventricular cavity size and systolic function. Atria Both atria are normal in size. Aortic Valve There is a normal trileaflet aortic valve. There is no aortic valve stenosis. There is no aortic valve regurgitation. Mitral Valve The mitral valve appears normal. There is trace mitral valve regurgitation. There is no mitral valve stenosis. Pulmonic Valve The pulmonic valve is likely normal. Tricuspid Valve There is trace tricuspid valve regurgitation. There is no evidence of pulmonary hypertension. Great Vessels The asc aorta is normal in size. Venous The inferior vena cava is normal in size and collapses greater than 50% with inspiration. Pericardium/Pleural There is no evidence of pericardial effusion. Prior Study Comparison No significant change compared to prior study dated: 03/29/2022. Recommendations, Care & Conclusions No obvious valvular pathology seen on this study. Measurements 2D Linear Measurements IVSd: 1.09 0.6-0.9/0.6-1.0 cm LVIDd: 4.00 3.9-5.3/4.2-5.9 cm LVIDd Index: 2.11 2.4-3.2/2.2-3.1 cm/m2 LVIDs: 2.98 2.0-3.6 cm LVPWd: 1.04 0.7-1.1 cm LA Diam: 3.50 2.7-3.8/3.0-4.0 cm LAIDs Index: 1.84 1.5-2.3 cm/m2 LV Mass: 173.00 67-162/88-224 g LV Mass Index: 91.05 43-95/49-115 g/m2 LVOT Diam: 1.90 3.0+(-)1.3 cm 2D Systolic Function EF 4C: 72.00 >55% EF 2C: 61.40 >55% EF BiP: 67.00 >55% Mitral Valve MV Pk E: 0.90 MV PK A: 0.96 MV Decel Time: 206.00 E/A: 0.90 E'Lateral: 8.70 E'Medial: 6.42 E/E' Med: 14.10 E/E' Lat: 10.40 PHT: 60.00 MVA PHT: 3.67 Decel [place]: 4.38 Aortic Valve AoV Pk Dagoberto: 1.41 AoV Pk Grad: 8.00 [place]: 2.33 LVOT LVOT Pk Dagoberto: 1.15 LVOT Mn Dagoberto: 0.81 LVOT VTI: 0.25 LVOT Pk Grad: 5.00 LVOT Mn Grad: 3.00 LVOT Diam: 1.90 LVOT Area: 2.84 Diastolic Function MV Pk E: 0.90 MV Pk A: 0.96 E/A: 0.90 E'Medial: 6.42 E/E' Med: 14.10 E' Laterial: 8.70 E/E' Lat: 10.40 Right Ventricle TAPSE (mm): 31.00 TVS' Dagoberto: 10.30 Tricuspid Valve RA Press: 3.00 Great Vessels Aorta Sinus of Valsalva: 2.50 2.0-3.5 cm Ao Asc: 3.00 2.1-3.4 cm Pulmonary Veins Pulm Vein S/D 1.50 Pulmonary Valve PV Pk Dagoberto: 0.92 Peak PV Grad: 3.00 Updated in Other Vendor System with Status of Final Aubrey Cooper MD electronically signed on 11/17/2024 1:25:33 PM with status of Final
== END ==
LOC: HO.CARD 07:46
PROVIDERS: PCP Internal Medicine; Visit Provider Nurse Practitioner Family
DX: R60.0 Localized edema (principal); I10 Essential (primary) hypertension; G47.33 Obstructive sleep apnea (adult) (pediatric)
CPT/HCPCS: 93306; Q9957

== ENCOUNTER → 2024-11-17 07:49 | Outpatient (BNV) | payer OTHER, SELFPAY | PROVIDERS: PCP Internal Medicine; Visit Provider Internal Medicine | DX: I42.2 Other hypertrophic cardiomyopathy (principal) | CPT/HCPCS: 93306 ==

== ENCOUNTER 2024-11-26 15:34 | Outpatient (REF) | payer OTHER, SELFPAY ==
[2024-11-27 11:49] LABS: Influenza A PCR NEGATIVE (Negative); Influenza B PCR NEGATIVE (Negative); Resp Syncy Virus RNA Qual PCR NEGATIVE (Negative); SARS COV2 PCR INHOUSE NEGATIVE (Negative)
--- OUTSIDE RECORDS SUMMARY | 2024-11-27 12:18 | XMS_ITS | Clinical Summary ---
Author Organization [facility] it Address [address] [place] [address] Care Team Providers Care Sports Team Manager Name Role Phone Dasha Nix MD Primary Care Provider [phone] Medications nortriptyline (PAMELOR) 10 mg capsuleIndicatio ns:Nausea and vomiting, unspecified vomiting type,Generalized abdominal pain Take 1 capsule (10 mg total) by mouth at bedtime. 30 each 1 11/24/2024 01/24/20 25 Active Encounters Date Type Department Care Team Description 11/24/2024 Telephone Gastroenterology - [address] [address] Tino Iniguez PA from Last [...] PM EDT Office Visit Gastroenterology - [address] [address] Tino Iniguez PA [address] [place] [phone] Health Maintenance Due Date Last Done Comments [...] to complete this topic Insurance [facility] Care Teams Sports Team Manager Relationship Specialty Start Date End Date Dasha Nix MD [address] [place] [phone] PCP - General Internal Medicine 11/24/24
--- OUTSIDE RECORDS SUMMARY | 2024-11-27 12:18 | XMS_ITS | Encounter Summary ---
Author Organization [facility] [place] [address] Care Team Providers Care Heel Painter Name Role Phone Dasha Nix MD Primary Care Provider [phone] Encounter Details Date Type Department Care Team (Late st Contact Info) Description 11/24/2024 Telephone Gastroenterology - 299 [address] [facility] [address] [place] [phone] Tino Iniguez PA [address] [facility] [address] [place] [address] Social History Tobacco Use Types Packs/Day Years [...] PM EDT Office Visit Gastroenterology - [address] [address] Tino Iniguez PA [address] [facility] [address] [address] documented as of this encounter Visit Diagnoses Diagnosis Nausea and vomiting, unspecified vomiting type- Primary Generalized abdominal pain Abdominal pain, generalized documented in this encounter Care Teams Heel Painter Relationship Specialty Start Date End Date Dasha Nix MD [address] [place] [address] PCP - General Internal Medicine 11/24/24 documented as of this encounter
== END 2024-11-26 15:35 | disposition home or self-care (01) ==
LOC: HO.LNP 15:34
PROVIDERS: PCP Internal Medicine; Visit Provider Physician Assistant
DX: J11.1 Influenza due to unidentified influenza virus with other respiratory manifestations (principal); N30.01 Acute cystitis with hematuria
CPT/HCPCS: 0241U; 81003; 87086; 87880

== ENCOUNTER 2024-11-26 15:34 | Outpatient (AMB) | payer OTHER, SELFPAY ==
--- OUTSIDE RECORDS SUMMARY | 2024-11-26 15:36 | XMS_ITS | Encounter Summary ---
Author Organization [facility] [address] Care Team Providers Care Bioinformatics Engineer Name Role Phone Dasha Nix MD Primary Care Provider [phone] Encounter Details Date Type Department Care Team (Late st Contact Info) Description 11/24/2024 Telephone Gastroenterology - [address] [facility] [address] [place] [phone] Tino Iniguez PA [address] [place] [address] Social History Tobacco Use Types Packs/Day Years Used Date Smoking Tobacco: Never Assessed Comments Unknown Sex and Gender Information Value Date Recorded Sex Assigned at Not on file Legal Sex Female 11:56 AM EST Gender Identity Not on file Sexual Orientation Not on file documented as of this encounter Ordered Prescriptions Prescription Sig Dispense Quantity Refills Last Filled Start Date End Date nortriptyline (PAMELOR) 10 mg capsuleIndications :Nausea and vomiting, unspecified vomiting type,Generalized abdominal pain Take 1 capsule (10 mg total) by mouth at bedtime. 30 each 1 11/24/2024 documented in this encounter Progress Notes * Belle Villegas [place] - 11/24/2024 12:41 PM EDT Rx sent to pharmacy * Alysia Dowling - 11/24/2024 11:20 AM EDT ANIKA : 05/25/23 NOV : 12/18/24 Medication : NORTRIPTYLINE Dose : 10MG QID HS day supply : 30 Prescriber : LESLIE Pharmacy : ON FILE Is patient out of medication? : YES PLEASE NOTE MED REFILLS CAN TAKE UP TO 72 HOURS TO FILL documented in this encounter Plan of Treatment Upcoming Encounters Date Type Department Care Team (Late st Contact Info) Description 12/18/2024 3:00 PM EDT Office Visit Gastroenterology - [address] [phone] Tino Iniguez PA [address] [address] documented as of this encounter Visit Diagnoses Diagnosis Nausea and vomiting, unspecified vomiting type- Primary Generalized abdominal pain Abdominal pain, generalized documented in this encounter Care Teams Bioinformatics Engineer Relationship Specialty Start Date End Date Dasha Nix MD [address] [place] [address] PCP - General Internal Medicine 11/24/24 documented as of this encounter
--- OUTSIDE RECORDS SUMMARY | 2024-11-26 15:36 | XMS_ITS | Clinical Summary ---
Author Organization [facility] it Address [address] [place] [address] Care Team Providers Care Peer Health Promoter Name Role Phone Dasha Nix MD Primary Care Provider [phone] Medications nortriptyline (PAMELOR) 10 mg capsuleIndicatio ns:Nausea and vomiting, unspecified vomiting type,Generalized abdominal pain Take 1 capsule (10 mg total) by mouth at bedtime. 30 each 1 11/24/2024 01/24/20 25 Active Encounters Date Type Department Care Team Description 11/24/2024 Telephone Gastroenterology - [address] [phone] Tino Iniguez PA from Last 3 Months Social History Tobacco Use Types Packs/Day Years Used Date Smoking Tobacco: Never Assessed Comments Unknown Sex and Gender Information Value Date Recorded Sex Assigned at Not on file Legal Sex Female 11:56 AM EST Gender Identity Not on file Sexual Orientation Not on file Plan of Treatment Upcoming Encounters Date Type Department Care Team (Late st Contact Info) Description 12/18/2024 3:00 PM EDT Office Visit Gastroenterology - [address] [phone] Tino Iniguez PA [address] [place] [phone] Health Maintenance Due Date Last Done Comments Breast Cancer Screening 1960 DTaP,Tdap,and Td Vaccines (1 - Tdap) 02/24/1980 Cervical Cancer Screening: P ap Smear 1982 Pneumococcal Vaccine: 50+ Ye ars (1 of 1 - PCV) 2011 Zoster Vaccines (1 of 2) 2011 COVID-19 Vaccine ( - 2023-2 5 season) 2024 Colorectal Cancer Screening: Colonoscopy 11/18/2024 Depression Screening 11/18/2024 HIV Screening 11/18/2024 Hepatitis C Screening 11/18/2024 Social Influencers of Health Screening 11/18/2024 Influenza Vaccine (Season Ended) 2025 RSV Immunization Adult Patie nts (1 - 1-dose 75+ series) 02/24/2036 HIB Vaccines Aged Out No longer eligi ble based on patient's age to complete this topic HPV Vaccines Aged Out No longer eligi ble based on patient's age to complete this topic Hepatitis A Vaccines Aged Out No long er eligible based on patient's age to complete this topic Hepatitis B Vaccines Aged Out No long er eligible based on patient's age to complete this topic IPV Vaccines Aged Out No longer eligi ble based on patient's age to complete this topic MMR Vaccines Aged Out No longer eligi ble based on patient's age to complete this topic Meningococcal ACWY Vaccine Aged Out N o longer eligible based on patient's age to complete this topic Meningococcal B Vaccine Aged Out No l onger eligible based on patient's age to complete this topic Pneumococcal Vaccine: Pediat rics (0 to 5 Years) and At-Risk Patients (6 to 64 Years) Aged Out No longer eligible b ased on patient's age to complete this topic RSV Immunization Patients Un nader 20 months Aged Out No longer eligible b ased on patient's age to complete this topic Varicella Vaccines Aged Out No longer eligible based on patient's age to complete this topic Insurance [facility] Care Teams Peer Health Promoter Relationship Specialty Start Date End Date Dasha Nix MD [address] [place] [phone] PCP - General Internal Medicine 11/24/24
--- NOTE | 2024-11-26 15:40 | AM.OFFWIN_ITS ---
Intake Vital Signs 11/26/24 15:45 Height 5 ft 2 in Weight 195 lb BMI 35.7 BP 140/82 H Blood Pressure Location Rt brachial Position Sitting Pulse 119 H Pulse Source Pulse Oximeter Temp 100.3 F Temp Source Oral Pulse Oximetry (%) 97 Oxygen Delivery Method Room Air Intake Visit Reasons: EP ?flu like symptoms Patient Tobacco Use Status: Never used Tobacco Allergies Iodinated Contrast Media [IV CONTRAST] Allergy (Intermediate, Verified 10/24/24 09:38) HIVES amlodipine Allergy (Mild, Verified 10/24/24 09:38) Blister cefaclor [From Ceclor] Allergy (Mild, Verified 10/24/24 09:38) HIVES codeine [Codeine] Allergy (Mild, Verified 10/24/24 09:38) NAUSEA & VOMITING Sulfa (Sulfonamide Antibiotics) [Sulfa (Sulfonamides)] Allergy (Mild, Verified 10/24/24 09:38) NAUSEA & VOMITING, severe vomiting Do you need a note to return to daycare/school/sports/work: No HPI HPI Comments History of Present Illness Details Patient is a 64yo F who presents to office with flu like symptoms Onset yesterday but worse today + fever and body/back ache. + headache with sinus pressure and conge stion + sore throat since yesterday She takes topamate for migraines without relief; states feels different than normal migraines Took tylenol at 230 + nausea without vomiting She said normal bowel movements without diarrhea. No sharp abdominal pain No urinary dysuria but + frequency. On furosemide No cough, SOB or CP Hx of kidney stones and last US was 11/12 and negative for stones PFSH Medical History SUZANNE on CPAP Anesthesia complication Nephrolithiasis HTN (hypertension) Right leg DVT Elevated cholesterol GERD (gastroesophageal reflux disease) Pulmonary embolism Asthma Shingles COVID Torn meniscus Ankle injuries Surgical History H/O sinus surgery History of appendectomy History of esophagogastroduodenoscopy (EGD) H/O colonoscopy Hx of lithotripsy History of cholecystectomy H/O: hysterectomy H/O splenectomy Family History Father CAD (coronary artery disease) Mother Asthma Alzheimer disease Social History Household Members: Spouse Housing: House Are you a primary personal care service provider to a significant other at home: No Do you presently have visiting nurse or other home services: No Alcohol intake: current Alcohol intake frequency: holidays/special occasions only Comment: all counts correct Patient Tobacco Use Status: Never used Tobacco e-Cigarette/Vaping Use: Never Used service: No Current occupational status: employed Cognitive needs: No Hearing needs: No Vision needs: Yes (rx glasses) Review of Systems Const Reports chills, Reports fatigue, Reports fever(s), Denies frequent falls and Reports headache(s) Eyes Denies blurry vision ENT Denies dizziness, Denies otalgia, Reports headache(s), Reports nasal congestion, Reports sore throat, Denies throat swelling and Denies tongue swelling Card Denies chest pain, Denies syncope and Denies dyspnea Resp Denies change in phlegm color, Denies chest congestion, Denies cough and Denies dyspnea GI Denies abdominal pain, Denies constipation and Denies diarrhea Denies difficulty voiding, Denies dysuria and Reports other (urinary frequency) Musc Reports back pain and Reports myalgias Skin/Breast Denies rash Neuro Denies dizziness, Denies syncope, Denies frequent falls and Reports headache(s) Endo Reports fatigue Aller/Immun Denies throat swelling and Denies tongue swelling Physical Exam Vital Signs: Last Vital Signs Temp 100.3 F 11/26/24 15:45 Pulse 119 H 11/26/24 15:45 BP 140/82 H 11/26/24 15:45 Pulse Ox 97 11/26/24 15:45 Oxygen Delivery Method Room Air 11/26/24 15:45 BMI result Body Mass Index 35.7 General: Non-toxic, NAD. Speaking full sentences. Skin: Warm dry throughout Eye: EOMI HENT: Airway patent. Uvula midline. slight pharyngeal erythema without exudates or edema. 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 Bilateral canals clear. TM non-erythematous, non-bulging. No TM perforation or hemotympanum noted. Lymph: No cervical lymphadenopathy noted Respiratory: CTA bilaterally. No wheezes, rales or rhonchi Cardiac: tachycardic. No murmur Abdominal: No CVAT MSK: Full ROM extremities. No midline spinal tenderness. + non-distinct lumbar muscle ttp bilaterally. Neurology: Alert. No aphasia or facial droop. Gait without abnormality Psych: Good mood and affect Results AMB Rapid Strep AMB Rapid Strep Negative Last Edit by Tres Fitzgerald CMA on 11/26/24 16 :13 AMB Urinalysis, Automated UA Leukoctes 125 Valerie/uL Last Edit by Tres Fitzgerald CMA on 11/26/24 16:1 4 UA Nitrite Negative Last Edit by Tres Fitzgerald CMA on 11/26/24 16:14 UA Urobilinogen 0.2 mg/dL Last Edit by Tres Fitzgerald CMA on 11/26/24 16 :14 UA Protein 0 mg/dL Last Edit by Tres Fitzgerald CMA on 11/26/24 16:14 UA pH 8.0 Last Edit by Tres Fitzgerald CMA on 11/26/24 16:14 UA Blood 1 Lai/uL Last Edit by Tres Fitzgerald CMA on 11/26/24 16:14 UA Specific [place] 1.010 Last Edit by Tres Fitzgerald CMA on 11/26/24 16:14 UA Ketone Negative Last Edit by Tres Fitzgerald CMA on 11/26/24 16:14 UA Bilirubin 0 mg/dL Last Edit by Tres Fitzgerald CMA on 11/26/24 16:14 UA Glucose 0 mg/dL Last Edit by Tres Fitzgerald CMA on 11/26/24 16:14 Results Reviewed Results Reviewed: Laboratory Last Values Urine pH (Auto) 8.0 11/26/24 15:59 Specific [place] (Auto) 1.010 11/26/24 15:59 Urine Protein (Auto) 0 mg/dL 11/26/24 15:59 Glucose (UA)(Auto) 0 mg/dL 11/26/24 15:59 Urine Ketones (Auto) Negative 11/26/24 15:59 Urine Blood (Auto) 1 Lai/uL 11/26/24 15:59 Urine Nitrite (Auto) Negative 11/26/24 15:59 Urine Bilirubin (Auto) 0 mg/dL 11/26/24 15:59 Urine Urobilinogen (Auto) 0.2 mg/dL 11/26/24 15:59 Leukocyte Esterase (Auto) 125 Valerie/uL 11/26/24 15:59 Strep Scn Rapid Clinic Negative 11/26/24 15:59 Assessment & Plan Assessment & Plan (1) Influenza-like illness: Code(s): J11.1 - Influenza due to unidentified influenza virus with other respiratory manifestations Plan: Patient seen and evaluated. Strep: negative COVID/FLu/RSV ordered U/a: + 2 leuks and blood culture sent Lungs CTA and no associated respiratory complaintl no xray indicated at this time Patient gave verbal understanding and had no additional questions or concerns at time of discharge All questions answered (2) Urinary tract infection: Code(s): N39.0 - Urinary tract infection, site not specified Qualifiers: Urinary tract infection type: acute cystitis Hematuria presence: with hematuria Qualified Code(s): N30.01 - Acute cystitis with hematuria Plan: Urine appears infected Culture sent Pt has no CVAT on exam She had recent US renal on 11/12 without stones noted so low suspicion for infected stone I discussed + fever, tachycardia with source of infection that labs with blood cultures may be warranted She wanted to control fever at home, monitor symptoms and start antibiotic We had long discussion on worsening s/s that warrant ER evaluation and she a greed All questions answered prior to d/c Orders: Orders AMB Rapid Strep Screen Today Z13.9 - Encounter for screening, unspecified Urine Culture Today N39.0 - Urinary tract infection, site not specified AMB Urinalysis Automated Today Z13.9 - Encounter for screening, unspecified SARS-CoV2/FLU/RSV Today J11.1 - Influenza due to unidentified influenza virus with other respiratory manifestations Medications: New nitrofurantoin monohyd/m-cryst 100 mg (Macrobid) must administer with a meal/food 100 mg PO Q12H 14 caps 0RF 7 days ondansetron 4 mg PO Q8H PRN 10 tabs 0RF nausea and vomiting Coding Level of Care Code Est Pt Level 3 (59137) Diagnoses Influenza-like illness J11.1 Acute cystitis with hematuria N30.01 Urinary tract infection type: acute cystitis Hematuria presence: with hematuria
[2024-11-26 15:45] VITALS: BP 140/82; PULSE 119; TEMP 37.9; O2SAT 97; BMI 35.7
== END 2024-11-26 16:21 | disposition home or self-care (01) ==
PROVIDERS: PCP Internal Medicine; Visit Provider Physician Assistant
DX: J11.1 Influenza due to unidentified influenza virus with other respiratory manifestations (principal); N30.01 Acute cystitis with hematuria; Z13.9 Encounter for screening, unspecified

== ENCOUNTER 2024-11-28 08:02 | Outpatient (AMB) | payer OTHER, SELFPAY ==
--- OUTSIDE RECORDS SUMMARY | 2024-11-28 08:04 | XMS_ITS | Encounter Summary ---
Author Organization [facility] [place] [address] Care Team Providers Care Recreation Manager Name Role Phone Dasha Nix MD Primary Care Provider [phone] Encounter Details Date Type Department Care Team (Late st Contact Info) Description 11/24/2024 Telephone Gastroenterology - 299 [address] [facility] [address] [place] [phone] Tino Iniguez PA [address] [facility] [address] [place] [address] Social History Tobacco Use Types Packs/Day Years [...] PM EDT Office Visit Gastroenterology - [address] [address] Tino Iniguez PA [address] [facility] [address] [address] documented as of this encounter Visit Diagnoses Diagnosis Nausea and vomiting, unspecified vomiting type- Primary Generalized abdominal pain Abdominal pain, generalized documented in this encounter Care Teams Recreation Manager Relationship Specialty Start Date End Date Dahsa Nix MD [address] [place] [address] PCP - General Internal Medicine 11/24/24 documented as of this encounter
--- OUTSIDE RECORDS SUMMARY | 2024-11-28 08:04 | XMS_ITS | Clinical Summary ---
Author Organization [facility] it Address [address] [place] [address] Care Team Providers Care Manager Story Name Role Phone Dasha Nix MD Primary Care Provider [phone] Medications nortriptyline (PAMELOR) 10 mg capsuleIndicatio ns:Nausea and vomiting, unspecified vomiting type,Generalized abdominal pain Take 1 capsule (10 mg total) by mouth at bedtime. 30 each 1 11/24/2024 01/24/20 25 Active Encounters Date Type Department Care Team Description 11/24/2024 Telephone Gastroenterology - [address] [phone] Tino Iniguez PA from Last [...] PM EDT Office Visit Gastroenterology - [address] [address] Tino Iniguez PA [address] [place] [address] Health Maintenance Due Date Last Done Comments [...] patient's age to complete this topic Insurance [facility] Care Teams Manager Story Relationship Specialty Start Date End Date Dasha Nix MD [address] [place] [phone] PCP - General Internal Medicine 11/24/24
--- NOTE | 2024-11-28 08:06 | MHC.OFFWIV ---
Intake Vital Signs 11/28/24 08:09 Weight 191 lb 8 oz BP 124/80 Blood Pressure Location Rt brachial Position Sitting Pulse 104 H Pulse Source Pulse Oximeter Temp 98.6 F Temp Source Oral Pulse Oximetry (%) 94 Oxygen Delivery Method Room Air Intake Visit Reasons: EP ?Sinus infection Intake Note: Patient here for sinus pressure, headaches, post nasal drip and thrush. Patient Tobacco Use Status: Never used Tobacco Allergies Iodinated Contrast Media [IV CONTRAST] Allergy (Intermediate, Verified 11/28/24 08:20) HIVES amlodipine Allergy (Mild, Verified 11/28/24 08:20) Blister cefaclor [From Ceclor] Allergy (Mild, Verified 11/28/24 08:20) HIVES codeine [Codeine] Allergy (Mild, Verified 11/28/24 08:20) NAUSEA & VOMITING Sulfa (Sulfonamide Antibiotics) [Sulfa (Sulfonamides)] Allergy (Mild, Verified 11/28/24 08:20) NAUSEA & VOMITING, severe vomiting Do you need a note to return to daycare/school/sports/work: No HPI HPI Comments History of Present Illness Details This is a 64-year-old female with a past medical history of asthma, seasonal allergies, hypertension, migraine headaches, PE currently maintained on Eliquis and IBS presenting for evaluation of facial pressure that she has had for the past 2 days. Patient was seen in urgent care earlier this week for evaluation of hematuria and was prescribed Macrobid. Patient's urine culture is pending at this time. Patient states that she developed a thick white coating on her tongue after taking the antibiotic and has developed sinus pressure right > left. Patient states that she has not had any new fevers, cough or shortness of breath. [facility] Medical History SUZANNE on CPAP Anesthesia complication Nephrolithiasis HTN (hypertension) Right leg DVT Elevated cholesterol GERD (gastroesophageal reflux disease) Pulmonary embolism Asthma Shingles COVID Torn meniscus Ankle injuries Surgical History H/O sinus surgery History of appendectomy History of esophagogastroduodenoscopy (EGD) H/O colonoscopy Hx of lithotripsy History of cholecystectomy H/O: hysterectomy H/O splenectomy Family History Father CAD (coronary artery disease) Mother Asthma Alzheimer disease Social History Household Members: Spouse Housing: House Are you a primary home visit field care manager to a significant other at home: No Do you presently have visiting nurse or other home services: No Alcohol intake: current Alcohol intake frequency: holidays/special occasions only Comment: all counts correct Patient Tobacco Use Status: Never used Tobacco e-Cigarette/Vaping Use: Never Used service: No Current occupational status: employed Cognitive needs: No Hearing needs: No Vision needs: Yes (rx glasses) Review of Systems Const All systems reviewed & are unremarkable except as noted in HPI and below Denies headache(s) Eyes Reports no additional complaints ENT Reports as per HPI, Reports otalgia, Reports facial pain, Denies headache(s), Reports nasal congestion, Reports post nasal drip, Reports sinus pain, Reports sinus pressure, Reports sore throat and Denies throat swelling Resp Reports no additional complaints GI Reports no additional complaints Reports no additional complaints Musc Reports no additional complaints Skin/Breast Reports system reviewed and no additional complaints, except as documented Neuro Reports no additional complaints and Denies headache(s) Psych Reports no additional complaints Endo Reports no additional complaints Ernie/Lymph Reports no additional complaints Aller/Immun Reports no additional complaints and Denies throat swelling Physical Exam Vital Signs: Last Vital Signs Temp 98.6 F 11/28/24 08:09 Pulse 104 H 11/28/24 08:09 BP 124/80 11/28/24 08:09 Pulse Ox 94 11/28/24 08:09 Oxygen Delivery Method Room Air 11/28/24 08:09 Const General: cooperative, no acute distress, well developed, alert, awake and Physically active Nutritional Appearance: average body habitus Orientation/consciousness: patient oriented x3 Limitations: no limitations HEENT Head: Yes normal to inspection and Yes normocephalic Ears: hearing grossly normal bilaterally, external ears normal, TM's normal bilaterally and EAC's normal General nose exam: Normal external nose present Face and sinus: Yes sinus tenderness (maxillary right > left) Mouth: abnormal tongue (white coating present; no lesions noted on soft palate or buccal mucosae) and moist mucous membranes Throat: Yes posterior oropharynx normal (There is no edema, erythema or exudates of the posterior oropharynx) and Yes postnasal drainage Eyes General: appearance normal, both eyes and all related structures Conjunctivae: conjunctivae normal Neck Lymphatic: no lymphadenopathy noted Resp Auscultation: clear to auscultation bilaterally, no crackles, no rales, no rhonchi and no wheezes Cardio Rate: regular rate Rhythm: regular rhythm Skin General skin exam: no rashes or lesions noted Neuro General: patient oriented x3 Psych Appearance: grossly normal Mental Status: mental status grossly normal Insight: Good insight present (Psych) Judgement: Good judgement present (Psych) Assessment & Plan Assessment & Plan (1) Sinus pressure: Comment: Patient's symptoms are not overtly bacterial in origin, however she has been taking antibiotics for management of a UTI x 2 days. Patient's antibiotic will be changed to Augmentin and the patient understands that this antibiotic may need to be re-evaluated when the results of her urine culture become available. Code(s): J34.89 - Other specified disorders of nose and nasal sinuses Plan: Augmentin 500mg q12 hours #14. (2) Thrush, oral: Comment: Patient's symptoms may be directly related to antibiotic use and may warrant reevaluation following antibiotic therapy. Code(s): B37.0 - Candidal stomatitis Plan: Clotrimazole troches five times daily. Medications: New amoxicillin-pot clavulanate 500-125 mg (Augmentin) 1 tab PO Q12H 14 tabs 0RF clotrimazole 10 mg mucous membrane .five times daily 70 tabs 0RF Coding Level of Care Code Est Pt Level 3 (32907) Diagnoses Sinus pressure J34.89 Thrush, oral B37.0 Time Spent (min) 20
[2024-11-28 08:09] VITALS: BP 124/80; PULSE 104; TEMP 37; O2SAT 94
== END 2024-11-28 08:56 | disposition home or self-care (01) ==
PROVIDERS: PCP Internal Medicine; Visit Provider Physician Assistant
DX: J34.89 Other specified disorders of nose and nasal sinuses (principal); B37.0 Candidal stomatitis

== ENCOUNTER → 2024-11-28 08:02 | Outpatient (BNVA) | payer OTHER, SELFPAY | PROVIDERS: PCP Internal Medicine; Visit Provider Physician Assistant | DX: Z13.89 Encounter for screening for other disorder (principal) ==

== ENCOUNTER 2024-12-02 09:15 | Outpatient (REF) | payer OTHER, SELFPAY ==
--- NOTE | ~2024-12-02 | MR_ITS ---
EXAMINATION: MR BRAIN WITHOUT AND WITH CONTRAST CLINICAL INFORMATION: Encephalopathy. Headaches times years, worsening over past year with blurry vision sometimes. Episodes of speech difficulty. COMPARISON: No prior MRI. Correlation made with CT head 05/22/2022. TECHNIQUE: Multiplanar, multisequence MRI of the brain was obtained before and after the intravenous administration of 9 mL of Gadavist. Examination performed on a high-field 1.5 Lina Siemens unit. FINDINGS: There is no diffusion restriction. There is no intracranial hemorrhage, acute infarction, mass effect, or edema. Ventricles, sulci, and cisterns are normal in size and configuration for patient age. No shift of midline. No abnormal hemosiderin deposition is identified. There are a few scattered punctate and minimally confluent foci of white matter T2 hyperintensity in the periventricular, subcortical, and hemispheric deep white matter. These foci are nonspecific but statistically most likely relate to sequela of small vessel ischemia. No distribution or morphology specific to demyelinating disease. After the administration of contrast, there is no abnormal intra or extra-axial contrast enhancement. Midline structures appear normally formed. The pituitary gland appears normal. Posterior fossa structures appear normal. Cerebellar tonsils are appropriately located. Major flow voids are preserved within the skull base. The globes and orbital contents demonstrate no abnormalities. There is a small mucous retention cyst in the dependent right maxillary antrum. Paranasal sinuses are otherwise clear bilaterally. The mastoids and tympanic cavities are normally aerated. Extracranial soft tissues demonstrate mildly prominent adenoidal soft tissues with several tiny mucous retention cysts. No suspicious bone marrow changes are evident. Atlantoaxial joint is normal. MR/MR head/brain wo/w con IMPRESSION: 1. No evidence of intracranial hemorrhage, acute infarction, mass effect, or edema. No abnormal contrast enhancement. 2. Mild changes of small vessel ischemia. No distribution or morphology specific to demyelinating disease. 3. Ancillary findings as discussed in the body of the report. Electronically signed by: Randy Negron MD 12/02/2024 10:51 AM EDT
--- OUTSIDE RECORDS SUMMARY | 2024-12-02 10:00 | XMS_ITS | Clinical Summary ---
Author Organization [facility] it Address [address] [place] [address] Care Team Providers Care Bonding Machine Tender Name Role Phone Dasha Nix MD Primary Care Provider [phone] Medications nortriptyline (PAMELOR) 10 mg capsuleIndicatio ns:Nausea and vomiting, unspecified vomiting type,Generalized abdominal pain Take 1 capsule (10 mg total) by mouth at bedtime. 30 each 1 11/24/2024 01/24/20 25 Active Encounters Date Type Department Care Team Description 11/24/2024 Telephone Gastroenterology - [address] [phone] Tino Iniguez PA from Last [...] PM EDT Office Visit Gastroenterology - [address] [address] Tino Iniguez PA [address] [place] [address] Health Maintenance Due Date Last Done Comments [...] age to complete this topic Insurance [facility] Care Teams Bonding Machine Tender Relationship Specialty Start Date End Date Dasha Nix MD [address] [place] [phone] PCP - General Internal Medicine 11/24/24
[2024-12-02] MEDS: gadobutroL 10 ML VIAL IVPUSH (10:11)
== END 2024-12-02 09:16 | disposition home or self-care (01) ==
LOC: HO.MRI 09:15
PROVIDERS: PCP Internal Medicine; Visit Provider Psychiatry & Neurology Neurology
DX: G93.40 Encephalopathy, unspecified (principal)
CPT/HCPCS: 70553; A9585

== ENCOUNTER → 2024-12-02 09:40 | Outpatient (BNV) | payer OTHER, SELFPAY | PROVIDERS: PCP Internal Medicine; Visit Provider Radiology Diagnostic Radiology | DX: R90.82 White matter disease, unspecified (principal) | CPT/HCPCS: 70553 ==

== ENCOUNTER 2024-12-19 12:48 | Outpatient (AMB) | payer OTHER, SELFPAY ==
--- OUTSIDE RECORDS SUMMARY | 2024-12-19 12:51 | XMS_ITS | Clinical Summary ---
Author Organization [facility] Address [address] [place] [address] Phone Care Team Providers Care Forensic Pathologist Name Role Phone Dasha Nix MD Primary Care Provider [phone] Medications nortriptyline (PAMELOR) 10 mg capsuleIndicatio ns:Nausea and vomiting, unspecified vomiting type,Generalized abdominal pain Take 1 capsule (10 mg total) by mouth at bedtime. 30 each 1 11/24/2024 01/24/20 25 Active Encounters Date Type Department Care Team Description 11/24/2024 Telephone Gastroenterology - [address] [address] Tino Iniguez PA from Last [...] Care Team (Late st Contact Info) Description 01/22/2025 3:00 PM EDT Office Visit Gastroenterology - [address] [address] Tino Iniguez PA [address] [place] [address] Health Maintenance Due Date Last Done Comments [...] patient's age to complete this topic Insurance [facility] Care Teams Forensic Pathologist Relationship Specialty Start Date End Date Dasha Nix MD [address] [place] [phone] PCP - General Internal Medicine 11/24/24
[2024-12-19 12:56] VITALS: BP 119/67; PULSE 96; O2SAT 96; BMI 34.6
--- NOTE | 2024-12-19 12:56 | MHC.OFFVIS ---
Vital Signs 12/19/24 12:56 Height 5 ft 2 in Weight 189 lb BMI 34.6 BP 119/67 Blood Pressure Location Rt brachial Position Sitting Pulse 96 Pulse Source Pulse Oximeter Pulse Oximetry (%) 96 Oxygen Delivery Method Room Air Intake Visit Reasons: Asthma Allergies Iodinated Contrast Media [IV CONTRAST] Allergy (Intermediate, Verified 11/28/24 08:20) HIVES amlodipine Allergy (Mild, Verified 11/28/24 08:20) Blister cefaclor [From Ceclor] Allergy (Mild, Verified 11/28/24 08:20) HIVES codeine [Codeine] Allergy (Mild, Verified 11/28/24 08:20) NAUSEA & VOMITING Sulfa (Sulfonamide Antibiotics) [Sulfa (Sulfonamides)] Allergy (Mild, Verified 11/28/24 08:20) NAUSEA & VOMITING, severe vomiting HPI HPI Asthma: Details: 64-year-old lady, lifetime nonsmoker, with multiple first-degree relatives with?asthma, now followed for 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 She continues on Nucala, Advair, Spiriva, and levalbuterol MDI with reasonable control of her symptoms. She denies recent exacerbations. [facility] Medical History SUZANNE on CPAP Anesthesia complication Nephrolithiasis HTN (hypertension) Right leg DVT Elevated cholesterol GERD (gastroesophageal reflux disease) Pulmonary embolism Asthma Shingles COVID Torn meniscus Ankle injuries Surgical History H/O sinus surgery History of appendectomy History of esophagogastroduodenoscopy (EGD) H/O colonoscopy Hx of lithotripsy History of cholecystectomy H/O: hysterectomy H/O splenectomy Family History Father CAD (coronary artery disease) Mother Asthma Alzheimer disease Social History Household Members: Spouse Housing: House Are you a primary medicare nurse to a significant other at home: No Do you presently have visiting nurse or other home services: No Alcohol intake: current Alcohol intake frequency: holidays/special occasions only Comment: all counts correct Patient Tobacco Use Status: Never used Tobacco e-Cigarette/Vaping Use: Never Used service: No Current occupational status: employed Cognitive needs: No Hearing needs: No Vision needs: Yes (rx glasses) Review of Systems Const Denies daytime sleepiness, Denies excessive sweating, Denies fatigue, Denies fever(s), Denies lethargy, Denies malaise, Denies night sweats, Denies snoring and Denies weight loss Eyes Denies blurry vision and Denies itchy eyes ENT Denies nasal congestion, Denies post nasal drip, Denies sinus pain, Denies sinus pressure and Denies other ( Thrush) Card Denies chest pain, Denies pedal edema, Denies dyspnea, Denies orthopnea and Denies paroxysmal nocturnal dyspnea Resp Denies cough, Denies hemoptysis, Denies excessive phlegm production, Denies dyspnea, Denies snoring and Denies wheezing GI Denies abdominal pain and Denies heartburn Musc Denies myalgias, Denies arthralgias and Denies joint swelling Skin/Breast Denies rash Neuro Denies memory loss and Denies seizure-like activity Psych Denies abnormal sleep pattern, Denies anxiety and Denies memory loss Endo Denies excessive sweating, Denies fatigue and Denies heat intolerance Ernie/Lymph Denies easy bruising Aller/Immun Denies itchy eyes, Denies seasonal rhinorrhea and Denies wheezing Physical Exam Vital Signs: Last Vital Signs Pulse 96 12/19/24 12:56 BP 119/67 12/19/24 12:56 Pulse Ox 96 12/19/24 12:56 Oxygen Delivery Method Room Air 12/19/24 12:56 BMI result Body Mass Index 34.6 Const General: no acute distress and alert Nutritional Appearance: not obese Orientation/consciousness: Other orientation findings ( oriented) HEENT Head: Yes atraumatic Eyes General: appearance normal, both eyes and all related structures Sclerae: sclerae normal EOM: EOMs intact bilaterally Neck Neck: Yes supple Lymphatic: no lymphadenopathy noted Resp Effort & Inspection: normal respiratory effort and no use of accessory muscles Auscultation: clear to auscultation bilaterally Cardio Rate: regular rate Rhythm: regular rhythm Heart sounds: no gallops, no murmurs and no rubs Skin General skin exam: other ( warm) Extrem General: No clubbing, No cyanosis and No edema Assessment & Plan Assessment & Plan (1) Severe persistent asthma: Code(s): J45.50 - Severe persistent asthma, uncomplicated Category: Medical Plan: Reasonable control with current regimen of Nucala, Advair, Spiriva, and levalbuterol MDI. Continue current regimen. (2) Environmental allergies: Code(s): Z91.09 - Other allergy status, other than to drugs and biological substances Category: Medical Plan: Reasonable control on Nucala. Continue current regimen. Coding Level of Care Code Est Pt Level 4 (71221) Diagnoses Severe persistent asthma J45.50 Environmental allergies Z91.09
== END 2024-12-19 13:18 | disposition home or self-care (01) ==
LOC: HO.HPS 12:49
PROVIDERS: PCP Internal Medicine; Visit Provider Internal Medicine Pulmonary Disease
DX: J45.50 Severe persistent asthma, uncomplicated (principal); Z91.09 Other allergy status, other than to drugs and biological substances
CPT/HCPCS: 99214

== ENCOUNTER → 2024-12-19 12:48 | Outpatient (BNVA) | payer OTHER, SELFPAY | PROVIDERS: PCP Internal Medicine; Visit Provider Internal Medicine Pulmonary Disease ==

== ENCOUNTER 2024-12-25 08:17 | Outpatient (AMB) | payer OTHER, SELFPAY ==
--- OUTSIDE RECORDS SUMMARY | 2024-12-25 08:20 | XMS_ITS | Clinical Summary ---
Author Organization [facility] Address [address] [place] [address] Phone Care Team Providers Care Nocturnist Name Role Phone Dasha Nix MD Primary Care Provider [phone] Medications nortriptyline (PAMELOR) 10 mg capsuleIndicatio ns:Nausea and vomiting, unspecified vomiting type,Generalized abdominal pain Take 1 capsule (10 mg total) by mouth at bedtime. 30 each 1 11/24/2024 01/24/20 25 Active Encounters Date Type Department Care Team Description 11/24/2024 Telephone Gastroenterology - [address] [phone] Tino Iniguez PA from Last [...] PM EDT Office Visit Gastroenterology - [address] [phone] Tino Iniguez PA [address] [place] [id number] Health Maintenance Due Date Last Done Comments [...] patient's age to complete this topic Insurance [facility] Care Teams Nocturnist Relationship Specialty Start Date End Date Dasha Nix MD [address] [place] [phone] PCP - General Internal Medicine 11/24/24
--- NOTE | 2024-12-25 08:33 | MHC.OFFWIV ---
Intake Vital Signs 12/25/24 08:37 Height 5 ft 2 in Weight 190 lb 6 oz BMI 34.8 BP 142/86 H Blood Pressure Location Lt brachial Position Sitting Pulse 94 Pulse Source Pulse Oximeter Temp 98.3 F Temp Source Oral Pulse Oximetry (%) 95 Oxygen Delivery Method Room Air Intake Visit Reasons: EP ?Strep throat Intake Note: Pt presents to the office today for c/o sore throat, low grade fever x1 week. Patient Tobacco Use Status: Never used Tobacco Allergies Iodinated Contrast Media [IV CONTRAST] Allergy (Intermediate, Verified 12/25/24 08:42) HIVES amlodipine Allergy (Mild, Verified 12/25/24 08:42) Blister cefaclor [From Ceclor] Allergy (Mild, Verified 12/25/24 08:42) HIVES codeine [Codeine] Allergy (Mild, Verified 12/25/24 08:42) NAUSEA & VOMITING Sulfa (Sulfonamide Antibiotics) [Sulfa (Sulfonamides)] Allergy (Mild, Verified 12/25/24 08:42) NAUSEA & VOMITING, severe vomiting HPI HPI Comments History of Present Illness Details History - The patient is a 64-year-old female with a past medical history of asthma, HTN, SUZANNE on CPAP, GERD, Dysphagia, PE on eliquis, and allergy presenting with severe sore throat and difficulty swallowing. - The sore throat began five days ago, with the left side being more painful today compared to the right side. - The patient has been gargling with warm salt water and using cough drops for relief, which provides minimal improvement. - also admits to some sinus pain - The patient denies any fevers, ear pain, cough or congestion. - The patient has a history of asthma managed with three different inhalers. - The patient experienced a kidney infection last month, treated with nitrofurantoin and then 2 days later was treated for sinusitis with Augmentin. Physical Exam General: Cooperative, healthy appearing, comfortable and no acute distress Orientation/consciousness: Patient oriented x3 Limitations: No limitations Head: Normal to inspection Ears: Fluid present in ears Nose: Normal external nose present, Normal nares present and No nasal discharge present Face and sinus: Normal facial exam and Sinuses tender Mouth: Normal oral and palatal mucosa present and moist mucous membranes Throat: Tonsils with slight edema and erythema, patent airway, Yes uvula midline. Posterior oropharynx erythema, no exudates Eyes: Appearance normal, both eyes and all related structures Neck: Normal visual inspection Respiratory: Clear to auscultation bilaterally. Normal respiratory effort, able to speak in complete sentences, respiratory distress, not tachypneic, no tripod positioning and no use of accessory muscles Cardiovascular: Regular rate and rhythm. Normal S1 and S2 Skin: No rashes or lesions noted Neuro: Patient oriented x3 Extremities: Normal to inspection and Yes no clubbing, cyanosis or edema PFSH Medical History SUZANNE on CPAP Anesthesia complication Nephrolithiasis HTN (hypertension) Right leg DVT Elevated cholesterol GERD (gastroesophageal reflux disease) Pulmonary embolism Asthma Shingles COVID Torn meniscus Ankle injuries Surgical History H/O sinus surgery History of appendectomy History of esophagogastroduodenoscopy (EGD) H/O colonoscopy Hx of lithotripsy History of cholecystectomy H/O: hysterectomy H/O splenectomy Family History Father CAD (coronary artery disease) Mother Asthma Alzheimer disease Social History Household Members: Spouse Housing: House Are you a primary out of school hours care worker to a significant other at home: No Do you presently have visiting nurse or other home services: No Alcohol intake: current Alcohol intake frequency: holidays/special occasions only Comment: all counts correct Patient Tobacco Use Status: Never used Tobacco e-Cigarette/Vaping Use: Never Used service: No Current occupational status: employed Cognitive needs: No Hearing needs: No Vision needs: Yes (rx glasses) Review of Systems Const All systems reviewed & are unremarkable except as noted in HPI and below Physical Exam Vital Signs: Last Vital Signs Temp 98.3 F 12/25/24 08:37 Pulse 94 12/25/24 08:37 BP 142/86 H 12/25/24 08:37 Pulse Ox 95 12/25/24 08:37 Oxygen Delivery Method Room Air 12/25/24 08:37 BMI result Body Mass Index 34.8 Results AMB Rapid Strep AMB Rapid Strep Negative Last Edit by Sachi Earl CMA on 12/25/24 08:50 Results Reviewed Results Reviewed: Laboratory Last Values Strep Scn Rapid Clinic Negative 12/25/24 08:50 Assessment & Plan Assessment & Plan (1) Sore throat: Code(s): J02.9 - Acute pharyngitis, unspecified Plan: VSS, pt well appearing and PE remarkable for posterior oropharynx and tonsils with slight edema and erythema. Centor Score 1, 5-10% probability of strep pharyngitis. Will hold off on treatment until we have the results of the throat culture. As well as the results of the flu COVID and RSV testing. - A throat culture was obtained to determine the presence of bacterial infection, with results expected in one to two days. - Symptomatic care recommended, including the use of ibuprofen for pain management, although the patient can only use Tylenol due to medication restrictions. - Consideration of antihistamines such as Xyzal for potential allergy-related symptoms. - Advised to monitor symptoms and return if condition worsens. Patient was informed and verbally consented to the use of an ambient scribe for clinic note documentation during this visit Orders: Orders AMB Rapid Strep Screen Today Ines Chahal PA-C Z13.9 - Encounter for screening, unspecified SARS-CoV2/FLU/RSV Today Ines Chahal PA-C R09.89 - Other specified symptoms and signs involving the circulatory and respiratory systems Throat Culture Today Sunshine Schilling PA-C J02.9 - Acute pharyngitis, unspecified Coding Level of Care Code Est Pt Level 3 (15977) Diagnoses Sore throat J02.9
[2024-12-25 08:37] VITALS: BP 142/86; PULSE 94; TEMP 36.8; O2SAT 95; BMI 34.8
== END 2024-12-25 09:09 | disposition home or self-care (01) ==
PROVIDERS: PCP Internal Medicine; Visit Provider Physician Assistant
DX: J02.9 Acute pharyngitis, unspecified (principal); Z13.9 Encounter for screening, unspecified

== ENCOUNTER 2024-12-25 08:17 | Outpatient (REF) | payer OTHER, SELFPAY ==
[2024-12-25 11:07] LABS: Influenza A PCR NEGATIVE (Negative); Influenza B PCR NEGATIVE (Negative); Resp Syncy Virus RNA Qual PCR NEGATIVE (Negative); SARS COV2 PCR INHOUSE NEGATIVE (Negative)
== END 2024-12-25 08:18 | disposition home or self-care (01) ==
LOC: HO.LAB 08:17
PROVIDERS: Physician Assistant Medical; PCP Internal Medicine; Visit Provider Physician Assistant
DX: J02.9 Acute pharyngitis, unspecified (principal); R09.89 Other specified symptoms and signs involving the circulatory and respiratory systems
CPT/HCPCS: 0241U; 87070

== ENCOUNTER 2025-02-04 15:39 | Outpatient (AMB) | payer OTHER, SELFPAY ==
--- NOTE | 2025-02-04 15:48 | A.OFFVIS_ITS ---
Intake Visit Reasons: Follow Up Allergies Iodinated Contrast Media (IV CONTRAST) Allergy (Intermediate, Verified 12/25/24 08:42) HIVES amlodipine Allergy (Mild, Verified 12/25/24 08:42) Blister cefaclor (From Ceclor) Allergy (Mild, Verified 12/25/24 08:42) HIVES codeine (Codeine) Allergy (Mild, Verified 12/25/24 08:42) NAUSEA & VOMITING Sulfa (Sulfonamide Antibiotics) (Sulfa (Sulfonamides)) Allergy (Mild, Verified 12/25/24 08:42) NAUSEA & VOMITING, severe vomiting HPI Comments Details: 64 yo RH woman with h/o pulmonary embolism, and severe asthma was here for tension type/migraine headaches. Initial visit in Oct 2024 (with h/o pulmonary embolism, and severe asthma was here for headaches. he has been having headaches for years.? Now she was frustrated stating that headache was happening every day all day.? Pain was more sore usually on the left side behind left eye but it could also go to the other side or the whole head could heard.? Sometime right occipital area right side of the neck was also hurting.? She would attribute these headache to either allergies or sinus or change to weather.he has not tried any controlling medicines for headache.? There was no change in personality.she also reported that sometime she would have difficulty coming with with words that she wanted to say or sometime other people noted that she was either confused or did not make sense.? This had happened with or without headache.) She was doing better with Nurtec. No side effects. SHe was happy as it was working. [facility] Medical History (Updated 02/04/25 @ 16:19 by Jonathan Bentley MD) Migraine Encephalopathy SUZANNE on CPAP Anesthesia complication Nephrolithiasis HTN (hypertension) Right leg DVT Elevated cholesterol GERD (gastroesophageal reflux disease) Pulmonary embolism Asthma Shingles COVID Torn meniscus Ankle injuries Surgical History H/O sinus surgery History of appendectomy History of esophagogastroduodenoscopy (EGD) H/O colonoscopy Hx of lithotripsy History of cholecystectomy H/O: hysterectomy H/O splenectomy Family History Father CAD (coronary artery disease) Mother Asthma Alzheimer disease Social History Household Members: Spouse Housing: House Are you a primary director of patient care to a significant other at home: No Do you presently have visiting nurse or other home services: No Alcohol intake: current Alcohol intake frequency: holidays/special occasions only Comment: all counts correct Patient Tobacco Use Status: Never used Tobacco e-Cigarette/Vaping Use: Never Used service: No Current occupational status: employed Cognitive needs: No Hearing needs: No Vision needs: Yes (rx glasses) Review of Systems Const Details: Constitutional:?No fever, chills, fatigue, weight loss, or night sweats. HEENT:?No headache, vision changes, hearing loss, nasal congestion, sore throat. Neurological:?No dizziness, syncope, seizures, numbness, tingling, weakness, tremors, memory loss. Psychiatric:?No anxiety, depression, mood swings, sleep disturbance, or hallucinations. Endocrine:?No heat/cold intolerance, polydipsia, polyuria, or hair/skin changes. Hematologic/Lymphatic:?No easy bruising, bleeding, or lymphadenopathy. Integumentary (Skin):?No rash, lesions, itching, or color changes. ? Physical Exam Neuro Other: Mental Status: Alert and oriented to person, place, and time. Normal attention. Normal spontaneous speech, fluency, and comprehension. No obvious issues with mood and memory. Affect is appropriate. Cranial Nerves: CN II: Visual willett full to confrontation, visual acuity intact. CN III, IV, : Pupils equal, round, reactive to light and accommodation. Extraocular movements are normal. CN V: Facial sensation is normal. CN VII: Facial movements symmetrical. CN VIII: Hearing intact to bedside conversation is normal. CN IX, X: Palate elevates symmetrically. CN XI: Shoulder shrug and head turn symmetrical. CN XII: Tongue midline without atrophy or fasciculations. Extrapyramidal: Full facial expressions and blinking. No rigidity. Movements are appropriate with no tremor or abnormality. Speech: Normal; no dysarthria or tremor. Assessment & Plan Assessment & Plan (1) Migraine: Comment: Meds tried: Topiramate, nortryptiline, diltiazim, cannot take propranalol due to severe asthma MRI brain [facility] at [facility] in November 2024: Minimal MVD Code(s): G43.909 - Migraine, unspecified, not intractable, without status migrainosus Category: Medical Qualifiers: Migraine type: migraine (< 15 days per month) with aura Status migrainosus presence: without status migrainosus Intractability: not intractable Qualified Code(s): G43.109 - Migraine with aura, not intractable, without status migrainosus Plan Impression: Intractable migraine w/o aura Rec: Nurtec 75mg every other day Medications: Changed From rimegepant (Nurtec ODT) 75 mg PO DAILY To rimegepant (Nurtec ODT) 75 mg PO Q OTHER DAY 15 tabs 5RF 30 days Coding Level of Care Code Est Pt Level 4 (46644) Diagnoses Migraine with aura and without status migrainosus, not intractable G43.109 Migraine type: migraine (< 15 days per month) with aura Status migrainosus presence: without status migrainosus Intractability: not intractable
--- OUTSIDE RECORDS SUMMARY | 2025-02-04 15:51 | XMS_ITS | Clinical Summary ---
Author Organization [facility] [address] [facility] Address [address] [place] [address] Phone Care Team Providers Care Head Of Integrated Media Name Role Phone Dasha Nix MD Primary Care Provider [phone] Medications nortriptyline (PAMELOR) 10 mg capsuleIndications: Nausea and vomiting, unspecified vomiting type,Generalized abdominal pain Take 1 capsule (10 mg total) by mouth at bedtime. 30 each 1 5 Active Eliquis 5 mg tablet Take 1 tablet (5 mg total) by mouth 2 (two) times a day. 5 Active atorvastatin (LIPITOR) 10 mg tablet Take 1 tablet (10 mg total) by mouth at bedtime. 5 Active clotrimazole (MYCELEX) 10 mg cleopatra Take 1 tablet (10 mg total) by mouth. 5 Active dilTIAZem CD (CARDIZEM CD) 240 mg 24 hr capsule Take 1 capsule (240 mg total) by mouth 1 (one) time each day. 5 Active FLUoxetine (PROzac) 20 mg capsule Take 1 capsule (20 mg total) by mouth 1 (one) time each day. 5 Active Advair HFA 230-21 mcg/actuation inhaler Inhale 2 puffs by mouth 2 (two) times a day. 4 Active furosemide (LASIX) 40 mg tablet Take 1 tablet (40 mg total) by mouth 1 (one) time each day. 5 Active omeprazole (PriLOSEC) [address] capsule Take 1 capsule (20 mg total) by mouth 1 (one) time each day. 5 Active ondansetron ODT (ZOFRAN-ODT) 4 mg disintegrating tablet Dissolve 1 tablet (4 mg total) on top of the tongue every 8 (eight) hours if needed for nausea. 5 Active Nurtec 75 mg dispersible tablet Take 1 tablet (75 mg total) by mouth. 5 Active topiramate (TOPAMAX) 25 mg tablet Take 1 tablet (25 mg total) by mouth 1 (one) time each day. 5 Active Encounters Date Type Department Care Team Description 11/24/2024 Telephone Gastroenterology - [address] [phone] Tino Iniguez PA from Last 3 Months [...] Care Team (Late st Contact Info) Description 03/26/2025 2:40 PM EDT Office Visit Gastroenterology - [address] [place] [phone] Tino Iniguez PA [address] [facility] [address] [address] Health Maintenance Due Date Last Done Comments Breast Cancer Screening 1961 DTaP,Tdap,and Td Vaccines (1 - Tdap) 02/24/1980 Cervical Cancer Screening: P ap Smear 1982 Pneumococcal Vaccine: 50+ Ye ars (1 of 1 - PCV) 2011 Zoster Vaccines (1 of 2) 2011 COVID-19 Vaccine ( - 2023-2 5 season) 2024 Depression Screening 07/16/2024 Colorectal Cancer Screening: Colonoscopy 11/18/2024 HIV Screening 11/18/2024 Hepatitis C Screening 11/18/2024 Social Influencers of Health Screening 11/18/2024 Influenza Vaccine (#1) 2025 RSV Immunization Adult Patie nts (1 [...] to complete this topic Insurance [facility] Care Teams Head Of Integrated Media Relationship Specialty Start Date End Date Dasha Nix MD [address] [place] [phone] PCP - General Internal Medicine 11/24/24
== END 2025-02-04 16:28 | disposition home or self-care (01) ==
LOC: HO.HSM 15:40
PROVIDERS: PCP Internal Medicine; Visit Provider Psychiatry & Neurology Neurology
DX: G43.109 Migraine with aura, not intractable, without status migrainosus (principal)
CPT/HCPCS: 99214

== ENCOUNTER 2025-03-06 08:55 | Outpatient (AMB) | payer OTHER, SELFPAY ==
--- NOTE | 2025-03-06 08:59 | A.OFFPC_ITS ---
Vital Signs 03/06/25 09:01 Height 5 ft 2 in Weight 84.368 kg BMI 34.0 BP 132/66 Respiration 18 Pulse 80 Pulse Source Pulse Oximeter Temp 97.9 F Temp Source Temporal Artery Scan Pulse Oximetry (%) 97 Oxygen Delivery Method Room Air Intake Visit Reasons: Routine - see comments File Drawer Finisher Required: No Accompanied by: Mother Allergies Iodinated Contrast Media (IV CONTRAST) Allergy (Intermediate, Verified 03/06/25 09:00) HIVES amlodipine Allergy (Mild, Verified 03/06/25 09:00) Blister cefaclor (From Ceclor) Allergy (Mild, Verified 03/06/25 09:00) HIVES codeine (Codeine) Allergy (Mild, Verified 03/06/25 09:00) NAUSEA & VOMITING Sulfa (Sulfonamide Antibiotics) (Sulfa (Sulfonamides)) Allergy (Mild, Verified 03/06/25 09:00) NAUSEA & VOMITING, severe vomiting Tobacco use date assessed: 10/24/24 Dental Screening Dental Screen Date: 10/24/24 HPI HPI Comments History of Present Illness Details 65-year-old female with history of hyper tension, SUZANNE on CPAP, migraines, hyperlipidemia, asthma, 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 Hypertension blood pressure office 132/66. On diltiazem and furosemide History of DVT/PE-remains on Eliquis, following with Dr. Cornejo. 03/2021. Asymptomatic. Repeat venous duplex negative for DVT Hyperlipidemia-on atorvastatin. Last LDL 90 Migraines-following with Dr. Bentley. On nortriptyline for prophylaxis, uses Nurtec as well Severe persistent asthma-follows with pulmonology. On Nucala injections. Compliant with therapies Obesity-BMI 34, has lost about 10 lb in the last 4 months. Has been using phentermine but feels she has plateaued. She has been exercising swimming and does try to follow a healthy diet. She is interested in adjustment in medications or alternatives but does not wish to use GLP 1 Concerns: None other than above ROS: General: No fevers, malaise, unintentional weight loss HEENT: No blurred vision, diplopia. No sore throat, nasal congestion, rhinorrhea, sinus pain, ear pain Cardiovascular: No chest pain, palpitations, or leg edema Respiratory: No shortness of breath, wheezing, cough GI: No abdominal pain, nausea, vomiting, diarrhea, constipation, melena, hematochezia : No dysuria, hematuria, increased urinary frequency, decreased urinary output MSK: No myalgia, back pain Neuro: No headaches, weakness, paresthesias Skin: No rashes or lesions EXAM: Constitutional - Awake and Alert, No apparent distress Eyes - PERRL Cardiovascular - S1S2, RRR, No edema Respiratory - Normal lung expansion, Normal respiratory effort, No respiratory distress, CTA bilaterally Extremities - no calf tenderness bilaterally, no swelling Skin - Warm/Dry Neurological - Alert & oriented x3 Psychological - Appropriate affect [facility] Medical History (Updated 03/06/25 @ 09:36 by SERA Briones) Migraine Encephalopathy SUZANNE on CPAP Anesthesia complication Nephrolithiasis HTN (hypertension) Right leg DVT Elevated cholesterol GERD (gastroesophageal reflux disease) Pulmonary embolism Asthma Shingles COVID Torn meniscus Ankle injuries Surgical History H/O sinus surgery History of appendectomy History of esophagogastroduodenoscopy (EGD) H/O colonoscopy Hx of lithotripsy History of cholecystectomy H/O: hysterectomy H/O splenectomy Family History Father CAD (coronary artery disease) Mother Asthma Alzheimer disease Social History Household Members: Spouse Housing: House Are you a primary administrator health care facility to a significant other at home: No Do you presently have visiting nurse or other home services: No Alcohol intake: current Alcohol intake frequency: holidays/special occasions only Comment: all counts correct Patient Tobacco Use Status: Never used Tobacco e-Cigarette/Vaping Use: Never Used service: No Current occupational status: employed Cognitive needs: No Hearing needs: No Vision needs: Yes (rx glasses) Questionnaire PHQ-9 Over the last 2 weeks, how often have you been bothered by any of the following problems? 1. Little interest or pleasure in doing things: not at all 2. Feeling down, depressed, or hopeless: several days 3. Trouble falling or staying asleep, or sleeping too much: more than half the days 4. Feeling tired or having little energy: more than half the days 5. Poor appetite or overeating: more than half the days 6. Feeling bad about yourself - or that you are a failure or have let yourself or your family down: several days 7. Trouble concentrating on things, such as reading the newspaper or watching television: not at all 8. Moving or speaking so slowly that other people could have noticed. Or the opposite - being so fidgety or restless that you have been moving around a lot more than usual: not at all 9. Thoughts that you would be better off or of hurting yourself in some way: not at all Total score: 8 Source: Developed by Drs. Huey Reinoso, Nora Bennett, Claude dueñas nd colleagues, with an educational simon from [employer]. Thrive Questionnaire Date Thrive assessed: 03/06/25 I am a: Patient What is your living situation today?: I have a steady place to live Within the past 12 months, did the food you bought not last and you didn't have the money to get more?: Never true Within the past 12 months, did you worry whether your food would run out before you got money to buy more?: Never true Do you have trouble paying for medicines?: No Do you have trouble getting transportation to medical appointments?: No Do you have trouble paying your heating and electricity bill?: No Do you have trouble taking care of your child, family member or friend?: No Do you have trouble with day-to-day activities such as bathing, preparing meals, shopping, managing finances, etc.?: No Are you currently unemployed and looking for a job?: No Are you interested in more education?: No THRIVE Score: 0 AUDIT C Alcohol Use Questionnaire (AUDIT-C) 1. How often do you have a drink containing alcohol?: Never Total Score: 0 ROSSANA-7 AMB Questionnaire ROSSANA-7 Date ROSSANA - 7 assessed: 03/06/25 Feeling nervous, anxious, or on edge: 1 = Several days Not being able to stop or control worryin = Several days Worrying too much about different things: 1 = Several days Trouble relaxin = Several days Being so restless that it is hard to sit still: 1 = Several days Becoming easily annoyed or irritable: 1 = Several days Feeling afraid as if something awful might happen: 1 = Several days Total ROSSANA-7 score (0-4 normal; 5-9 mild; 10-14 moderate; 15-21 severe): 7 Source: Developed by Drs. Huey Reinoso, Nora Bennett, Claude Campos and colleagues, with an educational simon from [employer]. Physical exam (Primary Care) Vital Signs: Last Vital Signs Temp 97.9 F 03/06/25 09:01 Pulse 80 03/06/25 09:01 Resp 18 03/06/25 09:01 BP 132/66 03/06/25 09:01 Pulse Ox 97 03/06/25 09:01 Oxygen Delivery Method Room Air 03/06/25 09:01 BMI result Body Mass Index 34.0 Tobacco/Smoking Status: Tobacco use Status Tobacco use date assessed 10/24/24 03/06/25 09:01 Patient Tobacco Use Status Never used Tobacco 03/06/25 09:01 e-Cigarette/Vaping Use Never Used 03/06/25 09:01 PHQ-9: PHQ-9 Score PHQ-9: Total score 8 03/06/25 11:13 Thrive Assessment: Date of Thrive Assessment Date Thrive assessed 03/06/25 03/06/25 09:23 Coding Level of Care Code New Pt Level 4 (91538) Complex EM visit Add On G2211 Diagnoses Primary hypertension I10 Hypertension type: primary hypertension Prediabetes R73.03 Pulmonary embolism I26.99 Obesity E66.9 Assessment & Plan Assessment & Plan (1) HTN (hypertension): Code(s): I10 - Essential (primary) hypertension Category: Medical Qualifiers: Hypertension type: primary hypertension Qualified Code(s): I10 - Essential (primary) hypertension Plan: Controlled. Continue Lasix, diltiazem (2) Prediabetes: Code(s): R73.03 - Prediabetes Category: Medical Plan: A1c ordered. Diabetic diet (3) Pulmonary embolism: Code(s): I26.99 - Other pulmonary embolism without acute cor pulmonale Category: Medical Plan: Continue Eliquis. Continue following with Hematology, most recent notes noted (4) Obesity: Code(s): E66.9 - Obesity, unspecified Category: Medical Plan: Referred to weight management. Continue phentermine Plan Follow-up in 4 months, labs to be completed following visit today. Referred to Dermatology for atypical nevus Orders: Orders Basic Metabolic Panel Today E66.9 - Obesity, unspecified, G47.33 - Obstructive sleep apnea (adult) (pediatric), I10 - Essential (primary) hypertension, I26.99 - Other pulmonary embolism without acute cor pulmonale, J45.909 - Unspecified asthma, uncomplicated, R73.03 - Prediabetes Hemoglobin A1c Today E66.9 - Obesity, unspecified, G47.33 - Obstructive sleep apnea (adult) (pediatric), I10 - Essential (primary) hypertension, I26.99 - Other pulmonary embolism without acute cor pulmonale, J45.909 - Unspecified asthma, uncomplicated, R73.03 - Prediabetes Referrals Medical Weight Management Referral E66.9 - Obesity, unspecified Dermatology Referral D22.9 - Melanocytic nevi, unspecified, Z12.83 - Encounter for screening for malignant neoplasm of skin
[2025-03-06 09:01] VITALS: BP 132/66; PULSE 80; RESP 18; TEMP 36.6; O2SAT 97; BMI 34.0
--- OUTSIDE RECORDS SUMMARY | 2025-03-06 09:07 | XMS_ITS | Clinical Summary ---
Author Organization [facility] [address] [facility] Address [address] [place] [address] Phone Care Team Providers Care Conveyancer Name Role Phone Dasha Nix MD Primary Care Provider [phone] Medications Eliquis 5 mg tablet Take 1 tablet [...] 1 (one) time each day. 5 Active nortriptyline (PAMELOR) 10 mg capsuleIndications :Nausea and vomiting, unspecified vomiting type,Generalized abdominal pain Take 1 capsule (10 mg total) by mouth at bedtime. 30 each 5 Active nortriptyline (PAMELOR) 10 mg capsuleIndications :Nausea and vomiting, unspecified vomiting type,Generalized abdominal pain Take 1 capsule (10 mg total) by mouth at bedtime. 30 each 1 5 025 Discontin ued(Reord er) Social History Tobacco Use Types Packs/Day Years [...] PM EDT Office Visit Gastroenterology - [address] [facility] [address] [place] [phone] Tino Iniguez PA [address] [facility] [address] [place] [address] Health Maintenance Due Date Last Done Comments Breast Cancer Screening 1961 DTaP,Tdap,and Td Vaccines (1 - Tdap) 02/24/1980 Cervical Cancer Screening: P ap Smear 1982 Pneumococcal Vaccine: 50+ Ye ars (1 of 1 - PCV) 2011 Zoster Vaccines (1 of 2) 2011 COVID-19 Vaccine (2023-2 5 season) 2024 Depression Screening 07/16/2024 Colorectal [...] patient's age to complete this topic [place] [id number] Care Teams Conveyancer Relationship Specialty Start Date End Date Dasha Nix MD PCP - General Internal Medicine 11/24/24
== END 2025-03-06 09:42 | disposition home or self-care (01) ==
LOC: HO.HMCHD 08:56
PROVIDERS: PCP Internal Medicine; Visit Provider Physician Assistant
DX: I10 Essential (primary) hypertension (principal); R73.03 Prediabetes; I26.99 Other pulmonary embolism without acute cor pulmonale; E66.9 Obesity, unspecified

== ENCOUNTER 2025-03-18 13:01 | Outpatient (AMB) | payer OTHER, SELFPAY ==
[2025-03-18 13:13] VITALS: BP 116/70; PULSE 99; RESP 15; TEMP 36.3; O2SAT 99; BMI 34.2
--- NOTE | 2025-03-18 13:13 | AM.OFFWIN_ITS ---
Intake Vital Signs 03/18/25 13:13 Height 5 ft 2 in Weight 187 lb BMI 34.2 BP 116/70 Blood Pressure Location Lt brachial Position Sitting Respiration 15 Pulse 99 Pulse Source Pulse Oximeter Temp 97.4 F Temp Source Oral Pulse Oximetry (%) 99 Oxygen Delivery Method Room Air Intake Visit Reasons: EP-?uti Intake Note: Pt is here today c/o frequency upon urination xx1day Patient Tobacco Use Status: Never used Tobacco Allergies Iodinated Contrast Media (IV CONTRAST) Allergy (Intermediate, Verified 03/18/25 13:18) HIVES amlodipine Allergy (Mild, Verified 03/18/25 13:18) Blister cefaclor (From Ceclor) Allergy (Mild, Verified 03/18/25 13:18) HIVES codeine (Codeine) Allergy (Mild, Verified 03/18/25 13:18) NAUSEA & VOMITING Sulfa (Sulfonamide Antibiotics) (Sulfa (Sulfonamides)) Allergy (Mild, Verified 03/18/25 13:18) NAUSEA & VOMITING, severe vomiting HPI HPI Comments History of Present Illness Details History - The patient is a 65-year-old female pr esenting with symptoms suggestive of a urinary tract infection. - Reports of urinary frequency, burning sensation, and lower back pain began last night, accompanied by a slight fever this morning. - She has a history of recurrent kidney stones, with the last occurrence two to three years ago, and occasional twinges of pain despite a normal ultrasound. - She has no blood in the urine and she has not seen a stone. - She has had an ultrasound in the past and was diagnosed with a stone but it was small. - She denies fever, chills, CP, SOB, vag inal discharge, or bleeding. Physical Exam General: Cooperative, healthy appearing, comfortable, no acute distress and well developed Cardiac: Normal S1 and S2. RRR, no M/R/G noted. Respiratory: Normal respiratory effort and able to speak in complete sentences. Clear to auscultation bilaterally. No w/r/r noted. Skin: No rashes or lesions noted. GI: Normal inspection. Normal BS noted. Soft, non-tender, non-distended. No TTP of all 4 quadrants. No guarding or rebound tenderness noted. Reports a little bit of discomfort in the belly. Back: Negative CVA bilaterally. Patient was informed and verbally consented to the use of an ambient scribe for clinic note documentation during this visit. [facility] Medical History (Updated 03/06/25 @ 09:36 by SERA Briones) Migraine Encephalopathy SUZANNE on CPAP Anesthesia complication Nephrolithiasis HTN (hypertension) Right leg DVT Elevated cholesterol GERD (gastroesophageal reflux disease) Pulmonary embolism Asthma Shingles COVID Torn meniscus Ankle injuries Surgical History H/O sinus surgery History of appendectomy History of esophagogastroduodenoscopy (EGD) H/O colonoscopy Hx of lithotripsy History of cholecystectomy H/O: hysterectomy H/O splenectomy Family History Father CAD (coronary artery disease) Mother Asthma Alzheimer disease Social History Household Members: Spouse Housing: House Are you a primary careers counsellor to a significant other at home: No Do you presently have visiting nurse or other home services: No Alcohol intake: current Alcohol intake frequency: holidays/special occasions only Comment: all counts correct Patient Tobacco Use Status: Never used Tobacco e-Cigarette/Vaping Use: Never Used service: No Current occupational status: employed Cognitive needs: No Hearing needs: No Vision needs: Yes (rx glasses) Review of Systems Const All systems reviewed & are unremarkable except as noted in HPI and below Physical Exam Vital Signs: Last Vital Signs Temp 97.4 F 03/18/25 13:13 Pulse 99 03/18/25 13:13 Resp 15 03/18/25 13:13 BP 116/70 03/18/25 13:13 Pulse Ox 99 03/18/25 13:13 Oxygen Delivery Method Room Air 03/18/25 13:13 BMI result Body Mass Index 34.2 Results AMB Urinalysis, Automated UA Leukoctes 500 Valerie/uL Last Edit by Samia Eli CMA on 03/18/25 13:21 UA Nitrite Negative Last Edit by Samia Eli CMA on 03/18/25 13:21 UA Urobilinogen 0.2 mg/dL Last Edit by Samia Eli CMA on 03/18/25 13:21 UA Protein 0 mg/dL Last Edit by Samia Eli CMA on 03/18/25 13:21 UA pH 6.0 Last Edit by Samia Eli, MILO on 03/18/25 13:21 UA Blood 10 Lai/uL Last Edit by Samia Eli CMA on 03/18/25 13:21 UA Specific Ina 1.010 Last Edit by Samia Eli, MILO on 03/18/25 13:21 UA Ketone Negative Last Edit by Samia Eli CMA on 03/18/25 13:21 UA Bilirubin 0 mg/dL Last Edit by Samia Eli, TOW MOTOR OPERATOR on 03/18/25 13:21 UA Glucose 0 mg/dL Last Edit by Samia Eli, MILO on 03/18/25 13:21 Results Reviewed Results Reviewed: Laboratory Last Values Urine pH (Auto) 6.0 03/18/25 13:13 Specific Ina (Auto) 1.010 03/18/25 13:13 Urine Protein (Auto) 0 mg/dL 03/18/25 13:13 Glucose (UA)(Auto) 0 mg/dL 03/18/25 13:13 Urine Ketones (Auto) Negative 03/18/25 13:13 Urine Blood (Auto) 10 Lai/uL 03/18/25 13:13 Urine Nitrite (Auto) Negative 03/18/25 13:13 Urine Bilirubin (Auto) 0 mg/dL 03/18/25 13:13 Urine Urobilinogen (Auto) 0.2 mg/dL 03/18/25 13:13 Leukocyte Esterase (Auto) 500 Valerie/uL 03/18/25 13:13 Assessment & Plan Assessment & Plan (1) Dysuria: Code(s): R30.0 - Dysuria Plan Most likely UTI vs stone UA 3+ leuko, +blood plan - drink lots of fluids such as water and cranberry - pyridium TID - cefuroxime BID for 5 days - will order a urine culture - follow up with PCP - will call with the results Orders: Orders Urine Culture Today N39.0 - Urinary tract infection, site not specified AMB Urinalysis Automated Today Z13.9 - Encounter for screening, unspecified Medications: New phenazopyridine 100 mg PO tid PRN 6 tabs 0RF Pain cefuroxime axetil aware of the hives with ceclor, pt sts she has had this reaction in 40 yrs and has been on Keflex in the past with no issues 500 mg PO Q12H 10 tabs 0RF Coding Level of Care Code Est Pt Level 3 (24112) Diagnoses Dysuria R30.0
--- OUTSIDE RECORDS SUMMARY | 2025-03-18 15:21 | XMS_ITS | Clinical Summary ---
Author Organization [facility] 299 [facility] Address [address] [place] [address] Phone Care Team Providers Care Chinese Instructor Name Role Phone Dasha Nix MD Primary Care Provider [phone] Medications Eliquis 5 mg tablet Take 1 [...] PM EDT Office Visit Gastroenterology - [address] [place] [phone] Tino Iniguez PA [address] [place] [phone] Health Maintenance Due Date Last Done Comments [...] patient's age to complete this topic Insurance [facility] Care Teams Chinese Instructor Relationship Specialty Start Date End Date Dasha Nix MD [address] [place] [phone] PCP - General Internal Medicine 11/24/24
== END 2025-03-18 13:49 | disposition home or self-care (01) ==
PROVIDERS: PCP Internal Medicine; Visit Provider Physician Assistant Medical
DX: R30.0 Dysuria (principal); Z13.9 Encounter for screening, unspecified

== ENCOUNTER 2025-03-18 13:01 | Outpatient (REF) | payer OTHER, SELFPAY ==
--- OUTSIDE RECORDS SUMMARY | 2025-03-19 12:31 | XMS_ITS | Clinical Summary ---
Author Organization [facility] 299 [facility] Address [address] [place] [address] Phone Care Team Providers Care University Extension Specialist Name Role Phone Dasha Nix MD Primary Care Provider [phone] Medications Eliquis 5 mg tablet Take 1 [...] PM EDT Office Visit Gastroenterology - [address] [place] [phone] Tino Iniguez PA [address] [place] [phone] Health Maintenance Due Date Last Done Comments [...] patient's age to complete this topic Insurance [facility] Care Teams University Extension Specialist Relationship Specialty Start Date End Date Dasha Nix MD [address] [place] [phone] PCP - General Internal Medicine 11/24/24
== END 2025-03-18 13:02 | disposition home or self-care (01) ==
LOC: HO.LNP 13:01
PROVIDERS: PCP Internal Medicine; Visit Provider Physician Assistant Medical
DX: R30.0 Dysuria (principal); Z13.89 Encounter for screening for other disorder
CPT/HCPCS: 81003; 87086

== ENCOUNTER 2025-05-19 07:45 | Outpatient (AMB) | payer OTHER, SELFPAY ==
--- OUTSIDE RECORDS SUMMARY | 2025-05-19 07:47 | XMS_ITS | Clinical Summary ---
Author Organization [facility] 299 [facility] Address [address] [place] [address] Phone Care Team Providers Care Handbell Choir Director Name Role Phone Dasha Nix MD Primary Care Provider [phone] Allergies Active Allergy Reactions Criticality Noted Date Comments Sulfa (Sulfonamide Antibiotics) 03/16 Medications Eliquis 5 mg tablet Take 0.5 tablets (2.5 mg total) by mouth 2 (two) times [...] day. 5 Active nortriptyline (PAMELOR) 10 mg capsuleIndications: Generalized abdominal pain Take 4 capsules (40 mg total) by mouth at bedtime. 360 each 3 5 03/26/20 26 Active Active Problems Problem Noted Date Diagnosed Date Irritable bowel syndrome with diarrhea Assessment & Plan (03/26/2025 5:49 PM EDT): Stable for years on nortriptyline 40 mg nightly Recent prescription only filled for 10 mg nightly and patient symptomatic Refill placed for nortriptyline 10 mg 4 pills nightly 90-day supply Refill 3 GERD (gastroesophageal reflux disease) HLD (hyperlipidemia) 03/26/2025 Asthma 03/26/2025 Kidney stones 03/26/2025 PE (pulmonary thromboembolism) ([facility] V24, [facility] V28) 03/26/2025 Vascular insufficiency 03/26/2025 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 Hughes OTHER SURGICAL HISTORY 07/16/2015 - 08/15/2015 unremarkable ESOPHAGOGASTRODUODENOSCOPY 06/15/2017 - 07/15/2017 gastritis, unremarkable gastric and esophageal biopsy Dr. Hughes SPLENECTOMY, TOTAL due to trauma APPENDECTOMY CHOLECYSTECTOMY HYSTERECTOMY BILATERAL OOPHORECTOMY Social History Tobacco Use Types Packs/Day Years Used Date Smoking Tobacco: Never Smokeless Tobacco: Never Tobacco Cessation:Counseling Given: Not Answered Alcohol Use Standard Drinks/Week Comments Never 0 (1 standard drink = 0.6 oz pur e alcohol) Comments Unknown Sex and Gender Information Value Date Recorded Sex Assigned at Not on file Legal Sex Female 11:56 AM EST Gender Identity Not on file Sexual Orientation Not on file Obstetrics History Last Filed Vital Signs Vital Sign Reading Time Taken Comments Blood Pressure - - Pulse - - Temperature - - Respiratory Rate - - Oxygen Saturation - - Inhaled Oxygen Concentration - - Weight 85.1 kg (187 lb 9.6 oz) 03/26/2025 2:39 P M EDT Height 157.5 cm (5' 2 ) 03/26/2025 2:39 PM EDT Body Mass Index 34.31 03/26/2025 2:39 PM EDT Plan of Treatment Health Maintenance Due Date Last Done Comments Breast Cancer Screening 1960 DTaP,Tdap,and Td Vaccines (1 - Tdap) 02/24/1980 Pneumococcal Vaccine: 50+ Years (1 of 2 - PCV) 02/24/1980 Cervical Cancer Screening: P ap Smear 1982 RSV Immunization Adult Patients (1 - Risk 50-74 years 1-dose series) 2011 Zoster Vaccines (1 of 2) 2011 Depression Screening 07/16/2024 Cholesterol Screening (Lipid Panel) 11/18/2024 HIV Screening 11/18/2024 Hepatitis C Screening 11/18/2024 Social Influencers of Health Screening 11/18/2024 COVID-19 Vaccine (1 - 2023-2 5 season) 2025 Influenza Vaccine (#1) 2025 Colorectal Cancer Screening: Colonoscopy 06/20/2027 06/20/2017, 05/10/2015 HIB Vaccines Aged Out No longer eligi [...] to complete this topic RSV Immunization Patients Under 20 months Aged Out No longer eligible b ased on patient's age to complete this topic Varicella Vaccines Aged Out No longer eligible based on patient's age to complete this topic Procedures Procedure Name Priority Date/Time Associated Diagnosis Comments EXTERNAL COLONOSCOPY REPORT Routine 06/20/2017 8:43 AM EST from Last 3 Months or Most Recently Relevant to Health Maintenance Results * External Colonoscopy Report (06/20/2017 8:43 AM EST) Anatomical Region Laterality Modality Endoscopy Historical Provider GI~PROCEDURE ORDERABLES F inal Result from Last 3 Months or Most Recently Relevant to Health Maintenance Insurance [facility] [address] [place] [address] Care Teams Handbell Choir Director Relationship Specialty Start Date End Date Dasha Nix MD [address] [place] [phone] PCP - General Internal Medicine 11/24/24
[2025-05-19 08:02] VITALS: BP 150/92; PULSE 95; TEMP 36.7; O2SAT 95; BMI 35.1
--- NOTE | 2025-05-19 08:02 | AM.OFFWIN_ITS ---
Intake Vital Signs 05/19/25 08:02 Height 5 ft 2 in Weight 192 lb BMI 35.1 BP 150/92 H Blood Pressure Location Lt brachial Position Sitting Pulse 95 Pulse Source Pulse Oximeter Temp 98.1 F Temp Source Oral Pulse Oximetry (%) 95 Oxygen Delivery Method Room Air Intake Visit Reasons: EP-?uti & yeast infection Intake Note: Patient presents with c/o UTI & ? yeast infection. Patient prescribed Keflex x7 days via online doctor & completed on Sunday, still experiencing burning. Patient also has tried Monistat x3 days & still experiencing itching. Patient also has been noticing some BRB with urination. Patient Tobacco Use Status: Never used Tobacco Allergies Iodinated Contrast Media (IV CONTRAST) Allergy (Intermediate, Verified 05/19/25 08:18) HIVES amlodipine Allergy (Mild, Verified 05/19/25 08:18) Blister cefaclor (From Ceclor) Allergy (Mild, Verified 05/19/25 08:18) HIVES codeine (Codeine) Allergy (Mild, Verified 05/19/25 08:18) NAUSEA & VOMITING Sulfa (Sulfonamide Antibiotics) (Sulfa (Sulfonamides)) Allergy (Mild, Verified 05/19/25 08:18) NAUSEA & VOMITING, severe vomiting Do you need a note to return to daycare/school/sports/work: Yes HPI HPI Comments History of Present Illness Details History of Present Illness - The patient is a 65-year-old female pr esenting with concerns of a urinary tract infection and possible yeast infection. - The patient completed a 10 day course of Keflex for a urinary tract infection two days ago but continues to experience dysuria. She was prescribed this via online doctor. - The patient reports no urgency or freq uency of urination currently, although these symptoms were previously present. - The patient describes the vaginal area as red, raw, itchy, and painful, suggesting a yeast infection. - The patient has used Monistat supposit ories and Vagisil without relief. - The patient reports a lack of discharg e but noted a bump and bleeding in the vaginal area, which she associates with hemorrhoids. - The patient denies any sexual activity in the past 12 years, ruling out sexually transmitted infections. - The patient has a family history of di abetes and was previously informed of being pre-diabetic, but current urine tests show no glycosuria. Review of Systems - Genitourinary: Reports dysuria, rednes s, rawness, itching, and pain in the vaginal area. Denies urgency and frequency of urination currently. - Gastrointestinal: Reports bleeding in the perianal area, possibly due to hemorrhoids. - Endocrine: Denies polyuria, polydipsia , or unexplained weight loss. All systems reviewed and are unremarkable except as noted in HPI Physical Exam General: Cooperative, healthy appearing, comfortable, no acute distress and well developed Orientation: Patient oriented x3 Limitations: No limitations Head: Normal to inspection Ears: Hearing grossly normal bilaterally Nose: Normal External nose present Face and sinus: Normal facial exam Eyes: Appearance normal, both eyes and all related structures Neck: Normal visual inspection and Yes full ROM Respiratory: Normal respiratory effort and able to speak in complete sentences. Skin: No rashes or lesions noted Neuro: Patient oriented x3 Extremities: Normal to inspection [facility] Medical History (Updated 05/19/25 @ 09:00 by Sunshine Schilling PA-C) Vagina itching Migraine Encephalopathy SUZANNE on CPAP Anesthesia complication Nephrolithiasis HTN (hypertension) Right leg DVT Elevated cholesterol GERD (gastroesophageal reflux disease) Pulmonary embolism Asthma Shingles COVID Torn meniscus Ankle injuries Surgical History H/O sinus surgery History of appendectomy History of esophagogastroduodenoscopy (EGD) H/O colonoscopy Hx of lithotripsy History of cholecystectomy H/O: hysterectomy H/O splenectomy Family History Father CAD (coronary artery disease) Mother Asthma Alzheimer disease Social History Household Members: Spouse Housing: House Are you a primary career development coordinator to a significant other at home: No Do you presently have visiting nurse or other home services: No Alcohol intake: current Alcohol intake frequency: holidays/special occasions only Comment: all counts correct Patient Tobacco Use Status: Never used Tobacco e-Cigarette/Vaping Use: Never Used service: No Current occupational status: employed Cognitive needs: No Hearing needs: No Vision needs: Yes (rx glasses) Physical Exam Vital Signs: BMI result Body Mass Index 35.1 Assessment & Plan Assessment & Plan (1) Vagina itching: Code(s): N89.8 - Other specified noninflammatory disorders of vagina Plan: Plan Patient was informed and verbally consented to the use of an ambient scribe for clinic note documentation during this visit. - UA with + leuks, neg nitrites and neg blood. Symptoms lead more toward yeast infection. Will wait on test results to treat anything. - A urine culture was performed to confirm the presence of infection. - The patient was advised to wait for culture results before initiating further treatment. - The patient was prescribed clotrimazole cream for topical application to alleviate symptoms. - Consideration for oral fluconazole, pending results for Bacterial Vaginosis panel. (2) Hemorrhoids: Code(s): K64.9 - Unspecified hemorrhoids Qualifiers: Hemorrhoid type: unspecified Qualified Code(s): K64.9 - Unspecified hemorrhoids Plan: - The patient was advised to monitor for any further bleeding and to apply topical treatments as needed. Orders: Orders Bacterial Vaginosis Panel Today N89.8 - Other specified noninflammatory disorders of vagina AMB Urinalysis Automated Today Z13.9 - Encounter for screening, unspecified Urine Culture Today N39.0 - Urinary tract infection, site not specified Medications: New nystatin 1 appl topical BID 15 grams 0RF Coding Level of Care Code Est Pt Level 4 (91388) Diagnoses Vagina itching N89.8 Hemorrhoids, unspecified hemorrhoid type K64.9 Hemorrhoid type: unspecified
== END 2025-05-19 09:18 | disposition home or self-care (01) ==
PROVIDERS: PCP Internal Medicine; Visit Provider Physician Assistant
DX: N89.8 Other specified noninflammatory disorders of vagina (principal); K64.9 Unspecified hemorrhoids; Z13.9 Encounter for screening, unspecified

== ENCOUNTER 2025-05-19 07:45 | Outpatient (REF) | payer OTHER, SELFPAY ==
[2025-05-19 14:17] LABS: Bacterial Vaginosis PCR NEGATIVE (Negative); Candida Group PCR NOT DETECTED (Not Detect); Candida glab krusei PCR NOT DETECTED (Not Detect); Trichomonas vaginalis PCR NOT DETECTED (Not Detect)
== END 2025-05-19 07:46 | disposition home or self-care (01) ==
LOC: HO.LAB 07:45
PROVIDERS: PCP Internal Medicine; Visit Provider Physician Assistant
DX: N89.8 Other specified noninflammatory disorders of vagina (principal); K64.9 Unspecified hemorrhoids; Z13.89 Encounter for screening for other disorder
CPT/HCPCS: 81003; 81515; 87086